=== PATIENT | female | born 1945 | race Caucasian/White ===

== ENCOUNTER → 2017-01-31 | Outpatient (CLI) | payer MEDICARE, OTHER ==
[~2017-01-31] MED LIST: ACHD5005 PO; ALBU17AE3; ALBU8.5H2 IH; ALBU8.5H2 INH; AMBIEN; BACL20TA PO; BCL10T PO; BENICAR HCT PO; BENICAR PO; BUDE90AE IH; BUDE90AE2 INH; CALC-80 PO; CALCIUM PO; CEFU250T11 PO; CHOL200035 PO; CYAN10007 PO; DICLOFENAC; FLT05NA16 NS; FLT11013; FLT11013 IH; FLUC150T PO; GEMF600T3 PO; GLUC-113 PO; GMFB600T PO; HYDR-3816 PO; HYZAAR; LACT1CAP66 PO; LEVO112T55 PO; LEVO125T6 PO; LEVO5TAB12 PO; LEVO75TA6 PO; LEVO88TA26 PO; LIDOCAINE 2%; LOSA100T7 PO; LOSA1TAB19 PO; LVT.1T PO; MESA1.2T PO; METO-354 PO; MULT-305 PO; OLME1TAB19 PO; OMEP20CA12 PO; PRAV40TA PO; PRD10T; PRV20T PO; RT-ALBUINH IH; RT-ALBUTEROL SULF 2.5 MG/3 ML PRE-MIX VIAL INH ONE; SERT25TA PO; SOLI5TAB4 PO; SULF1TAB35 PO; TIAGABINE; TRIA10.8 NS; [UNRECOGNIZED DRUG - OTHER]; pro-air IH
--- OUTSIDE RECORDS SUMMARY | 2017-01-31 13:49 | XMS REPORT | Continuity of Care Document ---
Author Author [facility] Organization [facility] Address Unknown Phone Unavailable Allergies Active Description Code Type Severity Reaction Onset Reported/Identified Relationship to Patient Clinical Status Yes ciprofloxacin [id number] Drug Allergy Severe N/A 10/03/2013 Yes Sulfa (Sulfonamide Antibiotics) [id number] Drug Allergy Severe N/A 10/03/2013 Yes Tetanus Vaccines Toxoid [id number] Drug Allergy Unknown N /A 10/03/2013 Yes gluten [id number] Drug Allergy Severe N/A 03/23/2015 Medications Problems Date Dx Coded Attending Type Code Diagnosis Diagnosed By 01/26/2012 Ot 478.79 DISEASE OF [place] NEC 01/26/2012 Ot V57.3 CARE INVOLVING SPEECH-LANGUAGE THERAPY 09/08/2012 Ot 562.10 DIVERTICULOSIS COLON (W/O MENT OF HEMORR 09/08/2012 Ot 787.99 OTHER GI SYSTEM SYMPTOMS 09/08/2012 Ot V76.51 SCREEN MAL NEOP-COLON 10/07/2013 BRAD YIP DO Ot 038.40 GRAM-NEG SEPTICEMIA NOS 10/07/2013 BRAD YIP DO Ot 041.49 OTHER AND UNSPECIFIED ESCHERICHIA COLI [ 10/07/2013 BRAD YIP DO Ot 244.9 HYPOTHYROIDISM NOS 10/07/2013 BRAD YIP DO Ot 272.4 HYPERLIPIDEMIA NEC/NOS 10/07/2013 BRAD YIP DO Ot 276.50 VOLUME DEPLETION, UNSPECIFIED 10/07/2013 BRAD YIP DO Ot 276.8 HYPOPOTASSEMIA 10/07/2013 BRAD YIP DO Ot 340 MULTIPLE SCLEROSIS 10/07/2013 BRAD YIP DO Ot 401.9 HYPERTENSION NOS 10/07/2013 BRAD YIP DO Ot 458.9 HYPOTENSION NOS 10/07/2013 BRAD YIP DO Ot 493.90 ASTHMA, UNSPECIFIED 10/07/2013 BRAD YIP DO Ot 530.81 ESOPHAGEAL REFLUX 10/07/2013 BRAD YIP DO Steve Ot 555.9 REGIONAL ENTERITIS NOS 10/07/2013 YIP DO BRAD iWlson Ot 596.51 HYPERTONICITY OF BLADDER 10/07/2013 PHI MONTALVO BRAD Steve Ot 599.0 URIN TRACT INFECTION NOS 10/07/2013 YIP DO BRAD Steve Ot 788.99 OTHER SYMPTOMS INVOLVING URINARY SYSTEM 10/07/2013 PHI MONTALVO BRAD Steve Ot 995.91 SEPSIS 10/07/2013 PHI MONTALVO BRAD Wilson Ot V12.3 HX-BLOOD DISEASES 02/06/2015 Ot 721.3 02/06/2015 Ot V76.12 02/06/2015 Ot V76.12 02/06/2015 Ot 478.79 02/06/2015 Ot V57.3 02/06/2015 Ot V76.12 02/06/2015 Ot V72.84 02/06/2015 PHI MONTALVO BRAD Steve Ot V76.12 02/06/2015 BRAD YIP DO Ot V76.12 02/09/2015 AMELIA AVERY MD Ot 724.2 02/28/2015 BRAD YIP DO Ot V76.12 02/28/2015 BRAD YIP DO Ot V76.12 02/28/2015 AMELIA AVERY MD Ot 724.2 02/28/2015 AMELIA AVERY MD Ot 721.3 02/28/2015 AMELIA AVERY MD Ot 722.52 02/28/2015 AMELIA AVERY MD Ot V58.69 03/01/2015 MARY YIP CHEMISTRY MANAGER Ot 240.9 03/10/2015 MARY YIP CHEMISTRY MANAGER Ot 241.0 03/21/2015 AMELIA AVERY MD Ot 721.3 03/21/2015 AMELIA AVERY MD Ot 722.52 03/21/2015 AMELIA AVERY MD Ot V58.69 03/23/2015 MARY YIP CHEMISTRY MANAGER Ot 241.0 03/23/2015 ALEA KEMP, ANJUM Castellon Ot 241.0 03/23/2015 ALEA KEMP, ANJUM Castellon Ot V72.63 03/23/2015 ALEA KEMP, ANJUM Castellon Ot V72.81 03/23/2015 ALEA KEMP, ANJUM M Ot V74.8 03/24/2015 ALEA KEMP, ANJUM M Ot 241.0 NONTOX UNINODULAR GOITER 04/07/2015 GENA KEMP, AMELIA Wilson Ot 724.2 04/15/2015 MARY YIP CHEMISTRY MANAGER Ot 241.0 04/15/2015 ALEA KEMP, ANJUM M Ot 241.0 04/15/2015 ALEA KEMP, ANJUM M Ot V72.63 04/15/2015 ALEA KEMP, ANJUM M Ot V72.81 04/15/2015 ALEA KEMP, ANJUM M Ot V74.8 04/16/2015 MARY YIP CHEMISTRY MANAGER Ot 240.9 04/17/2015 ALEA KEMP, ANJUM M Ot 246.8 04/17/2015 ALEA KEMP, ANJUM M Ot V67.09 04/17/2015 ALEA KEMP, ANJUM M Ot 246.8 04/17/2015 ALEA KEMP, ANJUM M Ot V67.09 04/19/2015 ALEA KEMP, ANJUM M Ot 246.8 04/19/2015 ALEA KEMP, ANJUM M Ot V67.09 04/25/2015 Ot 721.3 04/25/2015 Ot V76.12 04/25/2015 Ot V76.12 04/25/2015 Ot 478.79 04/25/2015 Ot V57.3 04/25/2015 Ot V76.12 04/25/2015 Ot V72.84 04/25/2015 BRAD YIP DO Ot V76.12 04/25/2015 BRAD YIP DO Ot V76.12 04/25/2015 AMELIA AVERY MD Ot 724.2 04/25/2015 AMELIA AVERY MD Ot 721.3 04/25/2015 AMELIA AVERY MD Ot 722.52 04/25/2015 AMELIA AVERY MD Ot V58.69 04/25/2015 MARY YIP CHEMISTRY MANAGER Ot 240.9 04/25/2015 MARY YIP CHEMISTRY MANAGER Ot 241.0 04/25/2015 ALEA KEMP, ANJUM Castellon Ot 241.0 04/25/2015 ALEA KEMP, ANJUM Castellon Ot V72.63 04/25/2015 ALEA KEMP, ANJUM Castellon Ot V72.81 04/25/2015 ALEA KEMP, ANJUM Cande Ot V74.8 04/25/2015 ALEA KEMP, ANJUM Castellon Ot 246.8 04/25/2015 ALEA KEMP, ANJUM Castellon Ot V67.09 05/05/2015 MERYL JOSEPH MD Ot 272.4 HYPERLIPIDEMIA NEC/NOS 05/05/2015 MERYL JOSEPH MD Ot 401.9 HYPERTENSION NOS 05/05/2015 MERYL JOSEPH MD Ot 414.01 CORONARY ATHEROSCLEROSIS OF [place] CORON 05/05/2015 MERYL JOSEPH MD Ot 414.4 CORONARY ATHEROSCLEROSIS DUE TO [place] 05/05/2015 MERYL JOSEPH MD Ot 786.09 RESPIRATORY ABNORM NEC 05/05/2015 MERYL JOSEPH MD Ot 794.30 ABN CARDIOVASC STUDY NOS 05/05/2015 MERYL JOSEPH MD Ot V12.51 HX-VENOUS THROMBOSIS EMBOLISM 05/05/2015 MERYL JOSEPH MD Ot V58.69 OT MED,LT,CURRENT USE 05/10/2015 ALEA KEMP, ANJUM Castellon Ot 246.8 05/10/2015 ANJUM COSBY MD Ot V67.09 05/15/2015 BRAD YIP DO Ot 401.9 05/15/2015 BRAD YIP DO Ot 780.79 08/16/2015 BRAD YIP DO, Ot V76.12 10/16/2015 JODI KEMP, GATITO Dumont Ot N39.0 URINARY TRACT INFECTION, SITE NOT SPECIF 10/16/2015 GATITO ZAPATA MD Ot R50.9 FEVER, UNSPECIFIED 10/16/2015 GATITO ZAPATA MD Ot Z86.711 PERSONAL HISTORY OF PULMONARY EMBOLISM 10/16/2015 Ot V76.12 10/16/2015 Ot V76.12 10/16/2015 Ot 478.79 10/16/2015 Ot V57.3 10/16/2015 Ot V76.12 10/16/2015 Ot V72.84 10/16/2015 BRAD YIP DO Ot V76.12 10/16/2015 BRAD YIP DO Ot V76.12 10/16/2015 AMELIA AVERY MD Ot 724.2 10/16/2015 GENA KEMP, AMELIA Wilson Ot 721.3 10/16/2015 GENA KEMP, AMELIA Wilson Ot 722.52 10/16/2015 GENA KEMP, AMELIA Wilson Ot V58.69 10/16/2015 MARY YIP CHEMISTRY MANAGER Ot 240.9 10/16/2015 LUISA YIPRICIA L CHEMISTRY MANAGER Ot 241.0 10/16/2015 ALEA KEMP, ANJUM M Ot 241.0 10/16/2015 ALEA KEMP, ANJUM M Ot V72.63 10/16/2015 ALEA KEMP, ANJUM M Ot V72.81 10/16/2015 ALEA KEMP, ANJUM M Ot V74.8 10/16/2015 ALEA KEMP, ANJUM M Ot 246.8 10/16/2015 ALEA KEMP, ANJUM M Ot V67.09 10/16/2015 BRAD YIP DO Ot 401.9 10/16/2015 BRAD YIP DO Ot 780.79 10/16/2015 BRAD YIP DO Ot V76.12 10/16/2015 MARY YIP CHEMISTRY MANAGER Ot 241.0 10/16/2015 ALEA KEMP, ANJUM M Ot 241.0 10/16/2015 ALEA KEMP, ANJUM M Ot V72.63 10/16/2015 ALEA KEMP, ANJUM M Ot V72.81 10/16/2015 ALEA KEMP, ANJUM M Ot V74.8 10/16/2015 ALEA KEMP, ANJUM M Ot 246.8 10/16/2015 ALEA KEMP, ANJUM M Ot V67.09 10/16/2015 BRAD YIP DO Ot 401.9 10/16/2015 BRAD YIP DO Ot 780.79 10/16/2015 BRAD YIP DO Ot V76.12 01/24/2016 JODI KEMP, GATITO Dumont Ot N39.0 URINARY TRACT INFECTION, SITE NOT SPECIF 01/24/2016 JODI KEMP, GATITO Dumont Ot R50.9 FEVER, UNSPECIFIED 06/16/2016 KRISTIAN MIRANDA APRN Ot N39.0 URINARY TRACT INFECTION, SITE NOT SPECIF 06/16/2016 KRISTIAN MIRANDA APRN Ot R35.0 FREQUENCY OF MICTURITION 06/16/2016 KRISTIAN MIRANDA APRN Ot R50.9 FEVER, UNSPECIFIED 06/24/2016 BRAD YIP DO, Ot M23.200 DERANG OF UNSP LAT MENSC DUE TO OLD TEAR 06/24/2016 BRAD YIP DO, Ot M23.51 CHRONIC INSTABILITY OF KNEE, RIGHT KNEE 06/27/2016 BRAD YIP DO, Ot M23.200 DERANG OF UNSP LAT MENSC DUE TO OLD TEAR 06/27/2016 BRAD YIP DO, Ot M23.51 CHRONIC INSTABILITY OF KNEE, RIGHT KNEE 07/10/2016 FLORIN COVINGTON MD, Ot M23.8X1 OTHER INTERNAL DERANGEMENTS OF RIGHT KNE 07/10/2016 FLORIN COVINGTON MD, Ot Z01.818 ENCOUNTER FOR OTHER PREPROCEDURAL EXAMIN 07/15/2016 BRAD YIP DO, Ot M23.200 DERANG OF UNSP LAT MENSC DUE TO OLD TEAR 07/15/2016 BRAD YIP DO, Ot M23.51 CHRONIC INSTABILITY OF KNEE, RIGHT KNEE 07/17/2016 BRAD YIP DO, Ot M23.200 DERANG OF UNSP LAT MENSC DUE TO OLD TEAR 07/17/2016 BRAD YIP DO, Ot M23.51 CHRONIC INSTABILITY OF KNEE, RIGHT KNEE 07/17/2016 FLORIN COVINGTON MD Ot E03.9 HYPOTHYROIDISM, UNSPECIFIED 07/17/2016 FLORIN COVINGTON MD Ot G35 MULTIPLE SCLEROSIS 07/17/2016 FLORIN COVINGTON MD Ot K50.90 CROHN'S DISEASE, UNSPECIFIED, WITHOUT CO 07/17/2016 FLORIN COVINGTON MD Ot M23.8X1 OTHER INTERNAL DERANGEMENTS OF RIGHT KNE 07/17/2016 FLORIN COVINGTON MD Ot M94.261 CHONDROMALACIA, RIGHT KNEE 07/19/2016 FLORIN COVINGTON MD Ot E03.9 HYPOTHYROIDISM, UNSPECIFIED 07/19/2016 FLORIN COVINGTON MD Ot G35 MULTIPLE SCLEROSIS 07/19/2016 FLORIN COVINGTON MD Ot K50.90 CROHN'S DISEASE, UNSPECIFIED, WITHOUT CO 07/19/2016 FLORIN COVINGTON MD Ot M23.8X1 OTHER INTERNAL DERANGEMENTS OF RIGHT KNE 07/19/2016 FLORIN COVINGTON MD Ot M94.261 CHONDROMALACIA, RIGHT KNEE 07/29/2016 ADRIA KEMP, FLORIN Graham Ot E03.9 HYPOTHYROIDISM, UNSPECIFIED 07/29/2016 FLORIN COVINGTON MD Ot G35 MULTIPLE SCLEROSIS 07/29/2016 ADRIA KEMP, FLORIN Graham Ot K50.90 CROHN'S DISEASE, UNSPECIFIED, WITHOUT CO 07/29/2016 ADRIA KEMP, FLORIN Graham Ot M23.8X1 OTHER INTERNAL DERANGEMENTS OF RIGHT KNE 07/29/2016 ADRIA KEMP, FLORIN Graham Ot M94.261 CHONDROMALACIA, RIGHT KNEE 07/30/2016 Ot V76.12 OTH SCREEN MAMMO-MALIGN NEOPLASM OF [place] 07/30/2016 Ot 478.79 DISEASE OF LARYN[place] NEC 07/30/2016 Ot V57.3 CARE INVOLVING SPEECH-LANGUAGE THERAPY 07/30/2016 Ot V76.12 OTH SCREEN MAMMO-MALIGN NEOPLASM OF [place] 07/30/2016 Ot V72.84 EXAM PRE-OPERATIVE NOS 07/30/2016 BRAD YIP DO Ot V76.12 OTH SCREEN MAMMO-MALIGN NEOPLASM OF [place] 07/30/2016 BRAD YIP DO Ot V76.12 OTH SCREEN MAMMO-MALIGN NEOPLASM OF TE[place] 07/30/2016 GENA KEMP, AMELIA Wilson Ot 724.2 LUMBAGO 07/30/2016 AMELIA AVERY MD Ot 721.3 LUMBOSACRAL SPONDYLOSIS 07/30/2016 GENA KEMP, AMELIA Wilson Ot 722.52 LUMB/LUMBOSAC DISC DEGEN 07/30/2016 GENA KEMP, AMELIA Wilson Ot V58.69 OT MED,LT,CURRENT USE 07/30/2016 MARY YIP CHEMISTRY MANAGER Ot 240.9 GOITER NOS 07/30/2016 MARY YIP CHEMISTRY MANAGER Ot 241.0 NONTOX UNINODULAR GOITER 07/30/2016 ALEA KEMP, ANJUM Castellon Ot 241.0 NONTOX UNINODULAR GOITER 07/30/2016 ALEA KEMP, ANJUM Castellon Ot V72.63 PRE-PROCEDURAL LABORATORY EXAMINATION 07/30/2016 ALEA KEMP, ANJUM Castellon Ot V72.81 [id number] CARDIOVASCULAR 07/30/2016 ALEA KEMP, ANJUM Castellon Ot V74.8 SCREEN-BACTERIAL DIS NEC 07/30/2016 ALEA KEMP, ANJUM Castellon Ot 246.8 DISORDERS OF THYROID NEC 07/30/2016 ANJUM COSBY MD Ot V67.09 SURGERY FOLLOW-UP, OTHER SURGERY 07/30/2016 BRAD YIP DO Ot 401.9 HYPERTENSION NOS 07/30/2016 BRAD YIP DO Ot 780.79 OTH MALAISE FATIGUE 07/30/2016 BRAD YIP DO Ot V76.12 OTH SCREEN MAMMO-MALIGN NEOPLASM OF [place] 07/30/2016 BRAD YIP DO Ot M23.200 DERANG OF UNSP LAT MENSC DUE TO OLD TEAR 07/30/2016 BRAD YIP DO Ot M23.51 CHRONIC INSTABILITY OF KNEE, RIGHT KNEE 07/31/2016 BRAD YIP DO, Ot Z12.31 ENCNTR SCREEN MAMMOGRAM FOR MALIGNANT NE 07/31/2016 BRAD YIP DO, Ot Z12.31 ENCNTR SCREEN MAMMOGRAM FOR MALIGNANT NE 08/21/2016 BRAD YIP DO, Ot Z12.31 ENCNTR SCREEN MAMMOGRAM FOR MALIGNANT NE 01/31/2017 Ot 478.79 DISEASE OF L[place] NEC 01/31/2017 Ot V57.3 CARE INVOLVING SPEECH-LANGUAGE THERAPY 01/31/2017 Ot V76.12 OTH SCREEN MAMMO-MALIGN NEOPLASM OF [place] 01/31/2017 Ot V72.84 EXAM PRE-OPERATIVE NOS 01/31/2017 BRAD YIP DO Ot V76.12 OTH SCREEN MAMMO-MALIGN NEOPLASM OF [place] 01/31/2017 BRAD YIP DO Ot V76.12 OTH SCREEN MAMMO-MALIGN NEOPLASM OF [place] 01/31/2017 AMELIA AVERY MD Ot 724.2 LUMBAGO 01/31/2017 AMELIA AVERY MD Ot 721.3 LUMBOSACRAL SPONDYLOSIS 01/31/2017 AMELIA AVERY MD Ot 722.52 LUMB/LUMBOSAC DISC DEGEN 01/31/2017 AMELIA AVERY MD Ot V58.69 OTH MED,LT,CURRENT USE 01/31/2017 MARY YIP CHEMISTRY MANAGER Ot 240.9 GOITER NOS 01/31/2017 MARY YIP CHEMISTRY MANAGER Ot 241.0 NONTOX UNINODULAR GOITER 01/31/2017 ANJUM COSBY MD Ot 241.0 NONTOX UNINODULAR GOITER 01/31/2017 ALEA KEMP, ANJUM Castellon Ot V72.63 PRE-PROCEDURAL LABORATORY EXAMINATION 01/31/2017 ANJUM COSBY MD Ot V72.81 [id number] CARDIOVASCULAR 01/31/2017 ANJUM COSBY MD Ot V74.8 SCREEN-BACTERIAL DIS NEC 01/31/2017 ANJUM COSBY MD Ot 246.8 DISORDERS OF THYROID NEC 01/31/2017 ANJUM COSBY MD, Ot V67.09 SURGERY FOLLOW-UP, OTHER SURGERY 01/31/2017 BRAD YIP DO Ot 401.9 HYPERTENSION NOS 01/31/2017 BRAD YIP DO Ot 780.79 OTH MALAISE FATIGUE 01/31/2017 BRAD YIP DO, Ot V76.12 OTH SCREEN MAMMO-MALIGN NEOPLASM OF [place] 01/31/2017 BRAD YIP DO Ot M23.200 DERANG OF UNSP LAT MENSC DUE TO OLD TEAR 01/31/2017 BRAD YIP DO Ot M23.51 CHRONIC INSTABILITY OF KNEE, RIGHT KNEE 01/31/2017 BRAD YIP DO Ot Z12.31 ENCNTR SCREEN MAMMOGRAM FOR MALIGNANT NE Procedures Results Test Result Range Complete urinalysis with reflex to culture - 06/16/16 20:03 Urine color determination YELLOW NRG Urine clarity determination SLIGHTLY CLOUDY NRG Urine pH measurement by test strip 5 5- 9 Specific gravity of urine by test strip 1.015 1.016-1.022 Urine protein assay by test strip, semi-quantitative 2+ NEGATIVE Urine glucose detection by automated test strip NEGATIVE NEGATIVE Erythrocytes detection in urine sediment by light microscopy 2+ NEGATIVE Urine ketones detection by automated test strip NEGATIVE NEGATIVE Urine nitrite detection by test strip NEGATIVE NEGATIVE Urine total bilirubin detection by test strip 1+ NEGATIVE Urine urobilinogen measurement by automated test strip (mass/volume) 1 mg/dL NORMAL Urine leukocyte esterase detection by dipstick 3+ NEGATIVE Automated urine sediment erythrocyte count by microscopy (number/high power field) [HPF] NRG Automated urine sediment leukocyte count by microscopy (number/high power field ) TNTC NRG Bacteria detection in urine sediment by light microscopy MODERATE NRG Squamous epithelial cells detection in urine sediment by light microscopy 10-25 NRG Crystals detection in urine sediment by light microscopy NONE NRG Casts detection in urine sediment by light microscopy NONE NRG Mucus detection in urine sediment by light microscopy NEGATIVE NRG Complete urinalysis with reflex to culture YES NRG Bacterial urine culture - 06/16/16 20:03 Bacterial urine culture [id number] NRG COLONY COUNT 10,000/ML - 100,000/ML NRG FTX;REPORTABLE SENSITIVITY REPORTED 06/18 09:00 NRG FREE TEXT ENTRY 3 MIXED GRAM POSITIVE HAFSA NRG Bacterial susceptibility panel - 06/16/16 20:03 Gentamicin susceptibility test by minimum inhibitory concentration <= NRG Trimethoprim/sulfamethoxazole susceptibility test by minimum inhibitoryconcentration <= NRG Ampicillin susceptibility test by minimum inhibitory concentration <= NRG Tobramycin susceptibility test by minimum inhibitory concentration <= NRG Cefazolin susceptibility test by minimum inhibitory concentration <= NRG Ceftriaxone susceptibility test by minimum inhibitory concentration <= NRG Ampicillin/sulbactam susceptibility test by minimum inhibitory concentration <= NRG Piperacillin/tazobactam susceptibility test by minimum inhibitory concentration <= NRG Ciprofloxacin susceptibility test by minimum inhibitory concentration <= NRG Meropenem susceptibility test by minimum inhibitory concentration <= NRG Nitrofurantoin susceptibility test by minimum inhibitory concentration <= NRG Aztreonam susceptibility test by minimum inhibitory concentration <= NRG Extended spectrum beta lactamase (ESBL) producing bacteria susceptibility test by minimum inhibitory concentration - NRG Methicillin resistant Staphylococcus aureus (MRSA) screening culture - 15:12 Methicillin resistant Staphylococcus aureus (MRSA) screening culture NEG NRG Encounters ACCT No. Visit Date/Time Discharge Status Pt. Type Provider Facility Loc./Unit Complaint [id number] 07/17/2016 07:28:00 2015 12:15:00 DIS Outpatient FLORIN COVINGTON MD [facility] SDC TORN MEDIAL MENISCUS RIGHT KNEE [id number] 07/10/2016 14:14:00 2015 15:14:00 DIS Outpatient FLORIN COVINGTON MD [facility] PREOP RIGHT KNEE ARTHROSCOPY [id number] 06/16/2016 19:53:00 2015 21:00:00 DIS Emergency KRISTIAN MIRANDA APRN [facility] ER POSS UTI/ELEVATED TEMP [id number] 01/23/2016 22:59:00 2015 01:04:00 DIS Emergency GATITO ZAPATA MD [facility] ER FEVER [id number] 10/16/2015 17:01:00 2014 19:02:00 DIS Emergency GATITO ZAPATA MD [facility] ER FEVER/UTI SYMPTOMS [id number] 07/25/2015 14:08:00 2014 23:59:59 CLS Outpatient BRAD YIP DO [facility] RAD SCREENING [id number] 05/05/2015 11:01:00 2014 17:55:00 DIS Outpatient MERYL JOSEPH MD [facility] CATH ABNORMAL STRESS, HLP [id number] 04/26/2015 06:45:00 2014 23:59:59 CLS Outpatient BRAD YIP DO [facility] CARD HTN MALISE FATIGUE [id number] 04/13/2015 10:52:00 2014 23:59:59 CLS Outpatient ANJUM COSBY MD [facility] LAB TOTAL THYROIDECTOMY [id number] 03/23/2015 11:15:00 2014 10:15:00 DIS Outpatient ANJUM COSBY MD [facility] SDC THYROID NODULES [id number] 03/13/2015 14:57:00 2014 23:59:59 CLS Outpatient ANJUM COSBY MD [facility] PREOP THYROID NODULES [id number] 03/07/2015 08:47:00 2014 23:59:59 CLS Outpatient MARY YIPP [facility] RAD THYROID NODULE [id number] 02/27/2015 13:51:00 2014 23:59:59 CLS Outpatient MARY YIP [facility] RAD THYROMEGALY [id number] 02/13/2015 14:01:00 2014 23:59:59 CLS Outpatient AMELIA AVERY MD [facility] CARD DDD [id number] 02/06/2015 14:39:00 2014 23:59:59 CLS Outpatient AMELIA AVERY MD [facility] RAD LBP RADIATING TO BOTH LEGS [id number] 07/22/2014 09:54:00 2013 23:59:59 CLS Outpatient BRAD YIP DO Steve [facility] RAD SCREENING [id number] 10/02/2013 22:05:00 2012 11:15:00 DIS Inpatient PHI MONTALVOBRAD Steve [facility] 4TH UROSEPSIS;DEHYDRATION; HYPOTENSION;ACUTE RENAL [id number] 07/16/2013 09:17:00 2012 23:59:59 CLS Outpatient PHI MONTALVOBRAD Steve [facility] RAD SCREENING [id number] 01/31/2017 13:44:00 ACT Outpatient PHI MONTALVO BRAD Steve [facility] RT ASTHMA [id number] 07/30/2016 11:23:00 ACT Outpatient PHI MONTALVO BRAD Steve [facility] RAD ROUTINE [id number] 06/22/2016 09:54:00 ACT Outpatient PHI MONTALVO RBAD Steve [facility] RAD R KNEE INSTABILITY/FALLS [id number] 02/06/2015 14:39:00 Document Registration [id number] 09/08/2012 12:29:00 Document Registration [id number] 09/07/2012 07:37:00 Document Registration [id number] 07/15/2012 15:04:00 Document Registration [id number] 01/27/2012 00:00:00 Document Registration [id number] 01/21/2012 15:41:00 Document Registration [id number] 07/11/2011 14:52:00 Document Registration [id number] 07/06/2010 07:29:00 Document Registration [id number] 02/16/2010 10:12:00 Document Registration
== END ==
LOC: RT 13:44
PROVIDERS: ATTEND Internal Medicine
DX: J45.909 Unspecified asthma, uncomplicated (principal)
CPT/HCPCS: 94060; 94640; 94726; 94729

== ENCOUNTER → 2017-03-17 | Outpatient (CLI) | payer MEDICARE, OTHER ==
[~2017-03-17] MED LIST changes: -RT-ALBUTEROL SULF 2.5 MG/3 ML PRE-MIX VIAL INH ONE
--- NOTE | 2017-03-17 21:31 | ECHOCARDIOGRAPHY REPORT ---
DATE OF SERVICE: 03/17/2017 PROCEDURE: Two-dimensional echocardiogram. REFERRING PHYSICIAN: Dr. Marc Ospina. MEASUREMENTS: LVID end diastolic 3.1. IVS thickness 0.9. LVPW thickness 0.9. Left atrial diameter 3.2. Ejection fraction 60%. FINDINGS: 1. Technical quality is good. 2. The left ventricle is normal in size with normal contractility. Systolic function appeared to be normal. Estimated ejection fraction 60%. Diastolic dysfunction is suggested by Doppler. 3. The left atrium is normal in size. No clot or thrombus were seen within the left atrium. 4. The right atrium and right ventricle are normal in size. No clot or thrombus were seen within the right side. 5. The mitral valve is normal in morphology with mild mitral regurgitation noted by color Doppler flow. No mitral valve prolapse. No mitral valve stenosis. 6. The aortic valve is trileaflet with normal opening and closing pattern. No significant aortic stenosis or regurgitation was seen. 7. The tricuspid valve is normal in morphology with mild tricuspid regurgitation noted by color Doppler flow. Doppler across tricuspid valve estimated pulmonary artery pressure of 21 plus right atrial pressure. 8. The pulmonic valve is functioning normally. 9. No pericardial effusion. CONCLUSION: 1. Normal left ventricular size and systolic function. Estimated ejection fraction of 60%. 2. Diastolic dysfunction is suggested by Doppler. 3. Mild mitral and tricuspid regurgitation. 3. Estimated pulmonary artery pressure of 30 mmHg. Job ID: [id number] DocumentID: [id number] Dictated Date: 03/17/2017 17:26:55 Tobacco Weigher Date: 03/17/2017 17:43:45 Dictated By: MERYL JOSEPH MD
== END ==
LOC: CARD 08:39
PROVIDERS: ATTEND Internal Medicine Cardiovascular Disease
DX: I10 Essential (primary) hypertension (principal); E78.2 Mixed hyperlipidemia; R06.02 Shortness of breath; K50.90 Crohn's disease, unspecified, without complications; E07.9 Disorder of thyroid, unspecified
CPT/HCPCS: 93306

== ENCOUNTER → 2017-03-19 | Outpatient (CLI) | payer MEDICARE, OTHER ==
[~2017-03-19] VITALS: Ht 154.9 cm; Wt 73.0 kg
[~2017-03-19] MED LIST changes: +CATHETER FLUSH 10 ML SYR IV PRN; +REGADENOSON 0.4 MG/5 ML SYR (LEXISCAN) IV ONE
[2017-03-19 09:10] VITALS: BP 117/74
[2017-03-19 09:12] VITALS: BP 113/69
--- NOTE | 2017-03-20 09:54 | STRESS TEST ---
DATE OF SERVICE: 03/19/2017 LEXISCAN MYOVIEW STRESS TEST REFERRING PHYSICIAN: Marc Ospina DO Baseline heart rate is 54, baseline blood pressure is 140/70, baseline EKG is sinus rhythm with no ischemic changes. In summary, the patient was injected with 10.91 mCi of technetium 99 Myoview and the resting images were obtained and the patient received 0.4 mg of Lexiscan, followed by 29.6 mCi of technetium 99 Myoview. Throughout the test, there were no EKG changes. The resting and stress images were reviewed and compared in the short access, horizontal long access and vertical long access views. Review of the images showed mild decreased uptake at the mid to apical anterior wall with mild reversibility with breast attenuation affecting the quality of the images. SSS is 2, SDS 1, TID value 0.98. On the gated images, the left ventricle appeared to be normal size with normal contractility. Calculated ejection fraction 63%. CONCLUSION: 1. The patient tolerated the Lexiscan well. 2. Breast attenuation with typical female pattern. No significant ischemia or infarction on SPECT images. 3. Normal left ventricular size with normal contractility. Calculated ejection fraction 63%. Job ID: [id number] DocumentID: [id number] Dictated Date: 03/19/2017 16:43:48 Recyclable Materials Sorter Date: 03/20/2017 08:33:02 Dictated By: MERYL JOSEPH MD
== END ==
LOC: CARD 07:22
PROVIDERS: ATTEND Internal Medicine Cardiovascular Disease
DX: I10 Essential (primary) hypertension (principal); E78.2 Mixed hyperlipidemia; R06.00 Dyspnea, unspecified; E07.9 Disorder of thyroid, unspecified
CPT/HCPCS: 78452; 93017

== ENCOUNTER → 2017-08-06 | Outpatient (CLI) | payer MEDICARE, OTHER ==
[~2017-08-06] MED LIST changes: -CATHETER FLUSH 10 ML SYR IV PRN; -REGADENOSON 0.4 MG/5 ML SYR (LEXISCAN) IV ONE
--- NOTE | 2017-08-06 18:56 | Diagnostic Imaging Report ---
Bilateral screening mammogram 2D views with tomosynthesis. The current study was also evaluated with a Computer Aided Detection (CAD) system. INDICATION: Screening. No current complaints stated on the questionnaire. COMPARISON: 07/30/2016. FINDINGS: The breasts are composed of heterogeneously dense parenchyma which may decrease mammographic sensitivity. Benign-appearing calcifications are seen. Allowing for technique and positional differences, no suspicious change is seen. IMPRESSION: No significant change. ACR BI-RADS Category 2: Benign findings. Result letter will be mailed to the patient. Note: At least 10% of breast cancer is not imaged by mammography. Dictated by: Dictated on workstation # [id number]
== END ==
LOC: RAD 08:56
PROVIDERS: ATTEND Internal Medicine
DX: Z12.31 Encounter for screening mammogram for malignant neoplasm of breast (principal)
CPT/HCPCS: 77067

== ENCOUNTER → 2017-11-05 | Outpatient (CLI) | payer MEDICARE, OTHER ==
--- NOTE | 2017-11-05 11:03 | Diagnostic Imaging Report ---
PROCEDURE: MRI lumbar spine. TECHNIQUE: Multiplanar, multisequence MRI of the lumbar spine was performed without contrast. INDICATION: Chronic back pain. FINDINGS: There is a left convexity scoliosis of the lumbar spine. There is osseous fusion between vertebral bodies T11 and T12 noted. The alignment at the posterior spinal line is satisfactory. There is disc desiccation at all levels. Significant disc height loss particularly on the right side of L3-L4 disc and along the left side of L4-L5 is seen. There is bone marrow reactive edema seen almost at all disc levels with no suspicious marrow focal lesion identified. There is a Tarlov cyst in the sacral spinal canal eccentric to the left side measuring 2.6 x 1.6 cm. This appears similar to 2010 comparison exam. The cauda equina and conus medullaris appear grossly unremarkable. T12-L1: There is a diffuse disc bulge without spinal canal stenosis. There is mild facet hypertrophy. No foraminal stenosis on the left. There is kqnw-op-aahtmxle foraminal stenosis on the right side however. L1-L2: There is no disc herniation. There is mild facet hypertrophy. No central canal, lateral recess or foraminal stenosis. L2-L3: There is a mild disc bulge and moderate bilateral facet hypertrophy. No central canal or lateral recess stenosis. There is no foraminal narrowing. L3-L4: There is a diffuse disc bulge and bilateral brbmfcfe-kw-wmfiah facet hypertrophy worse on the right side. No central canal stenosis. There is moderate right lateral recess stenosis seen abutting the descending right L4 nerve. There is a idxwurvc-wl-xtdwuf foraminal stenosis on the right and no foraminal stenosis on the left. L4-L5: There is a prominent diffuse disc bulge and bilateral facet hypertrophy severe on the left and mild on the right side. This is associated with no significant central canal stenosis. There is bilateral lateral recess stenosis mild on the right side and ovtdlciy-ez-vpmmkr on the left compressing the descending left L5 nerve root. The foramina demonstrate dewacmgy-dh-lduinb stenosis on the left and no significant stenosis on the right side. L5-S1: There is qlce-sj-ydgqccef foraminal stenosis on the left and no foraminal stenosis on the right side. IMPRESSION: Scoliosis convex to the left centered around L2-L3 level with associated significant disc and facet degenerative changes. There is multilevel lateral recess and foraminal stenosis as described. Dictated by: Dictated on workstation # [id number]
== END ==
LOC: RAD 09:14
PROVIDERS: ATTEND Internal Medicine
DX: M48.07 Spinal stenosis, lumbosacral region (principal); M47.816 Spondylosis without myelopathy or radiculopathy, lumbar region; M41.86 Other forms of scoliosis, lumbar region; M51.26 Other intervertebral disc displacement, lumbar region
CPT/HCPCS: 72148

== ENCOUNTER → 2018-02-12 | Outpatient (CLI) | payer MEDICARE, OTHER ==
[~2018-02-12] MED LIST changes: +HYDR-34 PO; -HYDR-3816 PO
--- NOTE | 2018-02-12 13:03 | Diagnostic Imaging Report ---
INDICATION: Osteoporosis screening. TECHNIQUE: Bone mineral analysis of the lumbar spine and both hips was performed. FINDINGS: The bone mineral density of the lumbar spine from L2 to L4 is 1.419 with a T score of 1.8. The bone mineral density of the left femoral neck is 0.911 with a T score of -0.9. The bone mineral density of the right femoral neck is 0.913 with a T score of -0.9. IMPRESSION: Normal bone mineral density of the lumbar spine and bilateral femoral necks. Dictated by: Dictated on workstation # [id number]
== END ==
LOC: RAD 11:03
PROVIDERS: ATTEND Internal Medicine
DX: Z13.820 Encounter for screening for osteoporosis (principal); M85.88 Other specified disorders of bone density and structure, other site; Z78.0 Asymptomatic menopausal state
CPT/HCPCS: 77080

== ENCOUNTER → 2018-03-18 | Outpatient (RCR) | payer MEDICARE, OTHER | END | disposition home or self-care (01) | LOC: CR3 02-16 05:00 | PROVIDERS: ATTEND Internal Medicine Cardiovascular Disease | DX: Z29.8 Encounter for other specified prophylactic measures (principal) ==

== ENCOUNTER 2018-04-17 07:08 | Outpatient (RCR) | payer MEDICARE, OTHER | END 2018-04-19 | disposition home or self-care (01) | LOC: CR3 07:08 | PROVIDERS: ATTEND Internal Medicine Cardiovascular Disease | DX: Z29.8 Encounter for other specified prophylactic measures (principal) ==

== ENCOUNTER → 2018-05-22 | Outpatient (RCR) | payer MEDICARE, OTHER | END | disposition home or self-care (01) | LOC: CR3 04-22 06:00 | PROVIDERS: ATTEND Internal Medicine Cardiovascular Disease | DX: Z29.8 Encounter for other specified prophylactic measures (principal) ==

== ENCOUNTER → 2018-06-24 | Outpatient (RCR) | payer MEDICARE, OTHER | END | disposition home or self-care (01) | LOC: CR3 05-25 07:14 | PROVIDERS: ATTEND Internal Medicine Cardiovascular Disease | DX: Z29.8 Encounter for other specified prophylactic measures (principal) ==

== ENCOUNTER → 2018-07-29 | Outpatient (RCR) | payer MEDICARE, OTHER | END | disposition home or self-care (01) | LOC: CR3 06-29 07:00 | PROVIDERS: ATTEND Internal Medicine Cardiovascular Disease | DX: Z29.8 Encounter for other specified prophylactic measures (principal) ==

== ENCOUNTER → 2018-08-10 | Outpatient (CLI) | payer MEDICARE, OTHER ==
--- NOTE | 2018-08-10 18:03 | Diagnostic Imaging Report ---
INDICATION: Screening. The current study was also evaluated with a Computer Aided Detection (CAD) system. 3-D tomosynthesis was also performed and reviewed. Comparison is made with prior examination from 08/06/2017 back through 07/15/2012. FINDINGS: There are scattered fibroglandular densities bilaterally. There are benign-type calcifications. There is no new dominant mass, spiculated lesion or suspicious calcification identified. Skin, nipples and axillae are unremarkable. IMPRESSION: ACR BI-RADS Category 2: Benign findings. Result letter will be mailed to the patient. Note: At least 10% of breast cancer is not imaged by mammography. Dictated by: Dictated on workstation # [id number]
== END ==
LOC: RAD 06:59
PROVIDERS: ATTEND Internal Medicine
DX: Z12.31 Encounter for screening mammogram for malignant neoplasm of breast (principal)
CPT/HCPCS: 77067

== ENCOUNTER 2018-08-26 06:35 | Outpatient (RCR) | payer MEDICARE, OTHER | END 2018-08-30 | disposition home or self-care (01) | LOC: CR3 06:35 | PROVIDERS: ATTEND Internal Medicine Cardiovascular Disease | DX: Z29.8 Encounter for other specified prophylactic measures (principal) ==

== ENCOUNTER → 2018-09-30 | Outpatient (RCR) | payer MEDICARE, OTHER | END | disposition home or self-care (01) | LOC: CR3 08-31 06:30 | PROVIDERS: ATTEND Internal Medicine Cardiovascular Disease | DX: Z01.818 Encounter for other preprocedural examination (principal) ==

== ENCOUNTER 2018-10-30 13:18 | Outpatient (RCR) | payer MEDICARE, OTHER | END 2018-10-31 | disposition home or self-care (01) | LOC: CR3 13:18 | PROVIDERS: ATTEND Internal Medicine Cardiovascular Disease | DX: Z29.8 Encounter for other specified prophylactic measures (principal) ==

== ENCOUNTER → 2018-12-02 | Outpatient (RCR) | payer MEDICARE, OTHER | END | disposition home or self-care (01) | LOC: CR3 11-02 13:00 | PROVIDERS: ATTEND Internal Medicine Cardiovascular Disease | DX: Z29.8 Encounter for other specified prophylactic measures (principal) ==

== ENCOUNTER 2018-12-25 13:18 | Outpatient (RCR) | payer MEDICARE, OTHER | END 2019-01-03 | disposition home or self-care (01) | LOC: CR3 13:18 | PROVIDERS: ATTEND Internal Medicine Cardiovascular Disease | DX: Z29.8 Encounter for other specified prophylactic measures (principal) ==

== ENCOUNTER 2019-01-29 13:32 | Outpatient (RCR) | payer MEDICARE, OTHER | END 2019-02-03 | disposition home or self-care (01) | LOC: CR3 13:32 | PROVIDERS: ATTEND Internal Medicine Cardiovascular Disease | DX: Z29.8 Encounter for other specified prophylactic measures (principal) ==

== ENCOUNTER 2019-02-22 13:26 | Outpatient (RCR) | payer MEDICARE, OTHER | END 2019-03-10 | disposition home or self-care (01) | LOC: CR3 13:26 | PROVIDERS: ATTEND Internal Medicine Cardiovascular Disease | DX: Z29.8 Encounter for other specified prophylactic measures (principal) ==

== ENCOUNTER → 2019-03-09 | Outpatient (CLI) | payer MEDICARE, OTHER ==
--- NOTE | 2019-03-09 10:20 | Diagnostic Imaging Report ---
CLINICAL INDICATION: Patient with history of multiple sclerosis. Patient has episodes where she cannot feel legs. EXAM: MRI of the brain performed without IV contrast. Sequences include axial DWI, ADC map, axial T2, axial FLAIR, sagittal FLAIR, axial T1, axial gradient echo, and sagittal T1. COMPARISON: MRI of the brain performed without and with IV contrast dated 07/17/2007. FINDINGS: There is interval progression of multiple focal areas of high T2 signal white matter changes involving both cerebral hemispheres. These may represent progression of demyelinating findings, but chronic small vessel ischemic disease may be considered. There is no significant change to the more prominent ovoid and patchy areas of high T2 signal in the periventricular regions, septal callosal, and amorphous area involving the midbrain. The brain parenchymal volume appears appropriate for patient's age. There is no hydrocephalus, brain herniation, or midline shift. Basal cisterns are unremarkable. The [place] vascular structures show no gross abnormality as visualized. The pituitary gland, sella, and suprasellar regions are unremarkable as visualized. The extra-cranial soft tissue, skull, and orbits are unremarkable. Dental hardware artifact obscures the bilateral maxillary sinus regions. There is no significant paranasal sinus disease. Temporal bone structures show no significant abnormality. IMPRESSION: 1: There is no evidence of acute intracranial process. 2: There is slight progression of small focal areas of high T2 signal white matter changes involving both cerebral hemispheres. These findings may be related to progression of demyelinating process, but progression of chronic small vessel ischemic disease may also be considered. 3: There is otherwise no significant change to the more prominent patchy and ovoid areas of high T2 signal white matter changes involving the bilateral periventricular regions, septal callosal region, and midbrain likely related to a demyelinating process. 4: The remainder of this exam is unremarkable for patient's age. Dictated by: Dictated on workstation # [id number]
--- NOTE | 2019-03-09 11:20 | Diagnostic Imaging Report ---
PROCEDURE: MRI lumbar spine. TECHNIQUE: Multiplanar, multisequence MRI of the lumbar spine was performed without contrast. INDICATION: History of multiple sclerosis. Lower extremity numbness. COMPARISON: MRI of the lumbar spine without contrast 11/05/2017. FINDINGS: Moderate to advanced left apex lumbar curvature centered at L3-L4. There is Grade 1 anterolisthesis of L3 on L4 and L4 on L5. There is also Grade 1 retrolisthesis of T12 on L1. Chronic anterior wedging of T12. Moderate to advanced degenerative endplate changes including Modic type I degenerative endplate changes at T12-L1. No abnormal signal in the conus which terminates at L1. Normal morphology of the cauda equina. Simple appearing cysts in both of the partially visualized kidneys. No acute findings in the visualized abdomen. Left S1 Tarlov cyst measures up to 2.4 cm. L1-L2: No spinal canal, lateral recess or neural foraminal narrowing. L2-L3: Annular disc bulge and ligamentous hypertrophy result in mild spinal canal and left lateral recess narrowing. The lumbar curvature also contributes to moderate right neural foraminal narrowing. L3-L4: Posterior disc osteophyte complex and ligamentous hypertrophy result in moderate bilateral lateral recess and mild spinal canal narrowing. There is advanced right and mild left neural foraminal narrowing. L4-L5: Posterior disc osteophyte complex, ligamentous hypertrophy and facet arthropathy result in advanced left and moderate right lateral recess narrowing. No substantial spinal canal narrowing. There is advanced left and moderate right neural foraminal narrowing. L5-S1: No substantial spinal canal, lateral recess or neural foraminal narrowing. IMPRESSION: 1. Advanced spondylotic and scoliotic changes in the lumbar spine result in multilevel high-grade lateral recess and neural foraminal narrowing detailed above level by level. No high-grade spinal canal narrowing. 2. No acute osseous findings. 3. Left S1 Tarlov cysts measuring up to 2.4 cm. Dictated by: Dictated on workstation # [id number]
== END ==
LOC: RAD 08:14
PROVIDERS: ATTEND Internal Medicine
DX: M47.816 Spondylosis without myelopathy or radiculopathy, lumbar region (principal); M41.86 Other forms of scoliosis, lumbar region; M48.061 Spinal stenosis, lumbar region without neurogenic claudication; M85.68 Other cyst of bone, other site; M46.86 Other specified inflammatory spondylopathies, lumbar region; M25.78 Osteophyte, vertebrae; M43.17 Spondylolisthesis, lumbosacral region; E03.9 Hypothyroidism, unspecified; E78.00 Pure hypercholesterolemia, unspecified; G35 Multiple sclerosis; J30.89 Other allergic rhinitis; J01.01 Acute recurrent maxillary sinusitis
CPT/HCPCS: 70551; 72148

== ENCOUNTER → 2019-04-21 | Outpatient (RCR) | payer MEDICARE, OTHER | END | disposition home or self-care (01) | LOC: CR3 03-22 13:00 | PROVIDERS: ATTEND Internal Medicine Cardiovascular Disease | DX: Z29.8 Encounter for other specified prophylactic measures (principal) ==

== ENCOUNTER 2019-05-21 07:47 | Outpatient (RCR) | payer MEDICARE, OTHER | END 2019-05-23 | disposition home or self-care (01) | LOC: CR3 07:47 | PROVIDERS: ATTEND Internal Medicine Cardiovascular Disease | DX: Z29.8 Encounter for other specified prophylactic measures (principal) ==

== ENCOUNTER → 2019-06-23 | Outpatient (RCR) | payer MEDICARE, OTHER | END | disposition home or self-care (01) | LOC: CR3 05-24 06:00 | PROVIDERS: ATTEND Internal Medicine Cardiovascular Disease | DX: Z01.818 Encounter for other preprocedural examination (principal) ==

== ENCOUNTER → 2019-07-30 | Outpatient (RCR) | payer MEDICARE, OTHER | END | disposition home or self-care (01) | LOC: CR3 06-30 06:00 | PROVIDERS: ATTEND Internal Medicine Cardiovascular Disease | DX: Z29.8 Encounter for other specified prophylactic measures (principal) ==

== ENCOUNTER → 2019-09-03 | Outpatient (RCR) | payer MEDICARE, OTHER | END | disposition home or self-care (01) | LOC: CR3 08-04 07:00 | PROVIDERS: ATTEND Internal Medicine Cardiovascular Disease | DX: Z29.8 Encounter for other specified prophylactic measures (principal) ==

== ENCOUNTER → 2019-09-06 | Outpatient (CLI) | payer MEDICARE, OTHER ==
--- NOTE | 2019-09-06 10:41 | Diagnostic Imaging Report ---
INDICATION: Routine screening. COMPARISON: 08/10/2018 and 08/06/2017. TECHNIQUE: 2D and 3D bilateral screening mammography was performed with CAD. FINDINGS: Scattered fibroglandular densities are identified bilaterally. Benign calcifications in both breasts are again noted. There is a tiny density in the medial left breast on the CC view at mid depth, indeterminate. No correlate is seen on the MLO view. Additional views are recommended. The right breast is unremarkable. The axillae are unremarkable. IMPRESSION: Left breast density. Additional views including spot compression and rolled CC views are recommended for further evaluation. ACR BI-RADS Category 0: Incomplete. (Needs additional imaging evaluation). Result letter will be mailed to the patient. Note: At least 10% of breast cancer is not imaged by mammography. Dictated by: Dictated on workstation # [id number]
== END ==
LOC: RAD 07:37
PROVIDERS: ATTEND Family Medicine
DX: Z12.31 Encounter for screening mammogram for malignant neoplasm of breast (principal)
CPT/HCPCS: 77067

== ENCOUNTER → 2019-09-10 | Outpatient (CLI) | payer MEDICARE, OTHER ==
--- NOTE | 2019-09-10 18:32 | Diagnostic Imaging Report ---
INDICATION: Left breast density. Patient presents for additional views. Correlation is made with a recent screening study from 09/06/2019 and prior mammogram from 08/10/2018 and 08/06/2017. 2-D and 3-D unilateral left diagnostic mammography was performed. This included conventional 90-degree lateral view as well as rolled CC and spot compression CC and ML views. The current study was also evaluated with a Computer Aided Detection (CAD) system. 3-D tomosynthesis was also performed and reviewed. FINDINGS: There is a tiny persistent density in the medial aspect of the left breast best seen on the CC view at gmi-oe-lvtqgximt depth approximately 7 to 9 cm from the nipple. This may be superiorly located on the ML view. There are two adjacent calcifications. No other masses are seen. Ultrasound is recommended. IMPRESSION: Persistent tiny density in the slightly inner left breast approximately 7 to 9 cm from the nipple. This may be superiorly located on the ML view and further evaluation with ultrasound is recommended. This will be performed today. ACR BI-RADS Category 0: Incomplete. (Needs additional imaging evaluation). Result letter will be mailed to the patient. Note: At least 10% of breast cancer is not imaged by mammography. Dictated by: Dictated on workstation # [id number]
--- NOTE | 2019-09-10 18:36 | Diagnostic Imaging Report ---
INDICATION: Left breast density. Correlation is made with diagnostic mammogram from earlier the same day as well as screening mammogram from 09/06/2019. FINDINGS: Sonographic interrogation of the upper and inner aspect of the left breast was performed. There are two tiny cysts at approximately 11 o'clock location of the left breast 4 and 6 cm from the nipple. Both of these measure approximately 3 mm in size. The lesion 6 cm from the nipple most likely accounts for the circumscribed density noted mammographically. No solid mass is identified. IMPRESSION: Tiny cysts at the 11 o'clock location of the left breast, as described. One of these likely accounts for the mammographic density. Patient may return to routine annual screening mammography. ACR BI-RADS Category 2: Benign findings. Dictated by: Dictated on workstation # [id number]
== END ==
LOC: RAD 13:57
PROVIDERS: ATTEND Family Medicine
DX: R92.2 Inconclusive mammogram (principal); R92.8 Other abnormal and inconclusive findings on diagnostic imaging of breast
CPT/HCPCS: 76642

== ENCOUNTER → 2019-10-06 | Outpatient (RCR) | payer MEDICARE, OTHER | END | disposition home or self-care (01) | LOC: CR3 09-06 06:00 | PROVIDERS: ATTEND Internal Medicine Cardiovascular Disease | DX: Z29.8 Encounter for other specified prophylactic measures (principal) ==

== ENCOUNTER 2019-11-05 06:24 | Outpatient (RCR) | payer MEDICARE, OTHER | END 2019-11-07 | disposition home or self-care (01) | LOC: CR3 06:24 | PROVIDERS: ATTEND Internal Medicine Cardiovascular Disease | DX: Z29.8 Encounter for other specified prophylactic measures (principal) ==

== ENCOUNTER 2019-12-13 13:45 | Outpatient (RCR) | payer MEDICARE, OTHER | END 2019-12-15 | disposition home or self-care (01) | LOC: CR3 13:45 | PROVIDERS: ATTEND Internal Medicine Cardiovascular Disease | DX: Z29.8 Encounter for other specified prophylactic measures (principal) ==

== ENCOUNTER → 2020-01-19 | Outpatient (RCR) | payer MEDICARE, OTHER | END | disposition home or self-care (01) | LOC: CR3 12-20 13:30 | PROVIDERS: ATTEND Internal Medicine Cardiovascular Disease | DX: Z29.8 Encounter for other specified prophylactic measures (principal) ==

== ENCOUNTER 2020-01-28 06:53 | Outpatient (RCR) | payer MEDICARE, OTHER | END 2020-02-20 | disposition home or self-care (01) | LOC: CR3 06:53 | PROVIDERS: ATTEND Internal Medicine Cardiovascular Disease | DX: Z29.8 Encounter for other specified prophylactic measures (principal) ==

== ENCOUNTER → 2020-09-07 | Outpatient (CLI) | payer MEDICARE, OTHER ==
--- NOTE | 2020-09-07 11:29 | Diagnostic Imaging Report ---
INDICATION: Routine screening. Comparison is made with prior mammogram 09/06/2019 and 08/10/2018. 2-D and 3-D bilateral screening mammography was performed with CAD. Scattered fibroglandular densities are identified bilaterally. The parenchymal pattern is stable. No dominant mass or malignant appearing microcalcifications are seen. There are scattered benign calcifications in both breasts. Axillae are unremarkable. IMPRESSION: BI-RADS Category 2 No mammographic features suspicious for malignancy are identified. ACR BI-RADS Category 2: Benign findings. Result letter will be mailed to the patient. Note: At least 10% of breast cancer is not imaged by mammography. Dictated by: Dictated on workstation # [id number]
== END ==
LOC: RAD 09:46
PROVIDERS: ATTEND Family Medicine
DX: Z12.31 Encounter for screening mammogram for malignant neoplasm of breast (principal)
CPT/HCPCS: 77063; 77067

== ENCOUNTER → 2021-02-28 | Outpatient (RCR) | payer MEDICARE, OTHER | END | disposition home or self-care (01) | LOC: CR3 01-29 05:56 | PROVIDERS: ATTEND Internal Medicine Cardiovascular Disease | DX: Z29.8 Encounter for other specified prophylactic measures (principal) ==

== ENCOUNTER → 2021-03-23 | Outpatient (CLI) | payer MEDICARE, OTHER | LOC: CARD 08:30 | PROVIDERS: ATTEND Physician Assistant | DX: I25.10 Atherosclerotic heart disease of native coronary artery without angina pectoris (principal); I34.0 Nonrheumatic mitral (valve) insufficiency; I10 Essential (primary) hypertension | CPT/HCPCS: 93306 ==

== ENCOUNTER 2021-03-30 07:36 | Outpatient (RCR) | payer MEDICARE, OTHER | END 2021-04-01 | disposition home or self-care (01) | LOC: CR3 07:36 | PROVIDERS: ATTEND Internal Medicine Cardiovascular Disease | DX: Z29.8 Encounter for other specified prophylactic measures (principal) ==

== ENCOUNTER → 2021-05-02 | Outpatient (RCR) | payer MEDICARE | END | disposition home or self-care (01) | LOC: CR3 04-02 06:39 | PROVIDERS: ATTEND Internal Medicine Cardiovascular Disease | DX: Z29.8 Encounter for other specified prophylactic measures (principal) ==

== ENCOUNTER 2021-05-30 07:02 | Outpatient (RCR) | payer MEDICARE ==
[~2021-05-30 07:02] MED LIST changes: -SULF1TAB35 PO; +SULF1TAB38 PO
== END 2021-06-03 | disposition home or self-care (01) ==
LOC: CR3 07:02
PROVIDERS: ATTEND Internal Medicine Cardiovascular Disease
DX: Z29.8 Encounter for other specified prophylactic measures (principal)

== ENCOUNTER 2021-07-02 07:05 | Outpatient (RCR) | payer MEDICARE | END 2021-07-04 | disposition home or self-care (01) | LOC: CR3 07:05 | PROVIDERS: ATTEND Internal Medicine Cardiovascular Disease | DX: Z29.8 Encounter for other specified prophylactic measures (principal) ==

== ENCOUNTER → 2021-07-04 | Outpatient (CLI) | payer MEDICARE, OTHER ==
[~2021-07-04] MED LIST changes: +CATHETER FLUSH 10 ML SYR IV PRN; +REGADENOSON 0.4 MG/5 ML SYR (LEXISCAN) IV ONE
[2021-07-04 09:05] VITALS: BP 148/86
[2021-07-04 09:11] VITALS: BP 122/76
--- NOTE | 2021-07-04 12:21 | Cardiology Stress Test Report ---
Stress Test Report Date of Procedure/Referring: Date of Procedure: Jul 04, 2021 Tran [place] Admitting Physician Aric Byrnes MD Indications: CAD Baseline Heart Rate: 61 Baseline Blood Pressure: Blood Pressure Systolic: 122 Blood Pressure Diastolic: 76 Baseline Vitals Vital Signs Date Time Temp Pulse Resp B/P (MAP) Pulse Ox O2 Delivery O2 Flow Rate FiO2 07/04/21 09:05 71 18 148/86 (106) 99 Room Air Baseline EKG: Baseline EKG: NSR Summary After explaining the procedure to the patient, she signed a consent and then brought to the stress nuclear laboratory. Patient received 0.4 mg Lexiscan for stress test, ECG, heart rate and blood pressure were monitored continuously. Resting and stress dose of radio tracer were injected, imaging was acquired and reviewed in short axis, horizontal long axis and vertical long axis views. TID: 1.49 SSS: 7 SDS: 4 EF: 65 1. Patient tolerated Lexiscan well 2. Motion artifact affecting the quality of the images 3. Transient ischemic dilatation, 1.49 value 4. Breast attenuation with reversible ischemia involving the mid to apical inferior wall and true apex 5. Normal left ventricular size, EF 65% MERYL JSOEPH MD Jul 04, 2021 12:21
== END ==
LOC: CARD 07:30
PROVIDERS: ATTEND Physician Assistant
DX: I25.10 Atherosclerotic heart disease of native coronary artery without angina pectoris (principal); I10 Essential (primary) hypertension
CPT/HCPCS: 78452; 93017; A9502

== ENCOUNTER 2021-07-16 07:00 | Outpatient (RCR) | payer MEDICARE ==
[~2021-07-16 07:00] MED LIST changes: -CATHETER FLUSH 10 ML SYR IV PRN; -REGADENOSON 0.4 MG/5 ML SYR (LEXISCAN) IV ONE
[2021-07-18] MEDS ORDERED: CHOL20002 PO (08:33)
[2021-07-18] MEDS ORDERED: LOSA100T57 PO (08:33)
[2021-07-18] MEDS ORDERED: FLUT1AER IH (08:33)
[2021-07-18] MEDS ORDERED: LIOT5TAB10 PO (08:33)
[2021-07-18] MEDS ORDERED: MIRA50TA PO (08:33)
[2021-07-18] MEDS ORDERED: PRAV40TA2 PO (08:33)
[2021-07-18] MEDS ORDERED: LEVO75CA5 PO (08:33)
[2021-07-18] MEDS ORDERED: CYAN200014 PO (08:33)
[2021-07-18] MEDS ORDERED: FEXO180T84 PO (08:33)
[2021-07-18] MEDS ORDERED: CALC600T91 PO (08:33)
[2021-07-18] MEDS ORDERED: MULT-436 PO (08:33)
[2021-07-18] MEDS ORDERED: GABA300C PO (08:33)
[2021-07-18] MEDS ORDERED: GEMF600T88 PO (08:33)
[2021-07-19] MEDS ORDERED: ASPI-1238 PO (05:48)
[2021-07-19] MEDS ORDERED: CLOP75TA28 PO (05:48)
== END 2021-08-05 | disposition home or self-care (01) ==
LOC: CR3 07:00
PROVIDERS: ATTEND Internal Medicine Cardiovascular Disease
DX: Z29.8 Encounter for other specified prophylactic measures (principal)

== ENCOUNTER 2021-07-18 09:00 | Day surgery (SDC) | payer MEDICARE ==
[2021-07-18] VITALS (9 sets, daily range): BP systolic 114–169; BP diastolic 65–96
[~2021-07-18] VITALS: Ht 154.9 cm; Wt 70.2 kg
[2021-07-18 07:33] LABS: HEMATOCRIT 38 % (35-52); HEMOGLOBIN 12.9 g/dL (11.5-16.0); MEAN CORPUSCULAR HEMOGLOBIN 33 pg (25-34); MEAN CORPUSCULAR HGB CONC 34 g/dL (32-36); MEAN CORPUSCULAR VOLUME 95 fL (80-99); PLATELET COUNT 291 10^3/uL (130-400); WHITE BLOOD COUNT 7.3 10^3/uL (4.3-11.0)
[2021-07-18 07:42] LABS: POTASSIUM 3.8 MMOL/L (3.6-5.0)
[2021-07-18 07:43] LABS: ALBUMIN 4.3 GM/DL (3.2-4.5)
[2021-07-18 07:44] LABS: CALCIUM 9.9 MG/DL (8.5-10.1)
[2021-07-18 07:45] LABS: TOTAL PROTEIN 7.8 GM/DL (6.4-8.2)
[2021-07-18 07:46] LABS: PROTHROMBIN TIME PATIENT 13.4 SEC (12.2-14.7)
[2021-07-18 07:47] LABS: BILIRUBIN,TOTAL 0.5 MG/DL (0.1-1.0)
[2021-07-18 07:49] LABS: CREATININE SERUM 1.14 MG/DL (0.60-1.30)
--- NOTE | 2021-07-18 07:54 | Diagnostic Imaging Report ---
Indication: Pre-heart catheterization Upright portable chest shows normal heart size and vascularity. There is linear scarring in the left midlung. No mass or infiltrate is seen. There is no effusion or pneumothorax. There is no acute bony abnormality. IMPRESSION: No acute abnormality is seen with no change from 05/05/2015. Dictated by: Dictated on workstation # [id number]
--- NOTE | 2021-07-18 08:50 | Conscious Sedation/ASA ---
Conscious Sedation Pre-Proced Time 08:49 ASA Score 3 For ASA 3 and 4: Consider anesthesia and medical clearance. Also, for patients with a history of failed moderate sedation consider anesthesia. Airway Lungs Heart ASA score ASA 1: a normal healthy patient ASA 2: a patient with a mild systemic disease (mid diabetes, controlled hypertension, obesity x ASA 3: a patient with a severe systemic disease that limits activity (angina, COPD, prior Myocardial infarction) ASA 4: a patient with an incapacitating disease that is a constant threat to life (CHF, renal failure) ASA 5: a moribund patient not expected to survive 24 hrs. (ruptured aneurysm) ASA 6: a declared brain- patient whose organs are being harvested. For emergent operations, add the letter E after the classification Mallampati Classification Grade 3 Sedation Plan Analgesia, Amnesia, Plan communicated to team members, Discussed options with patient/fam, Discussed risks with patient/fam The patient is an appropriate candidate to undergo the planned procedure, sedation, and anesthesia. The patient immediately re-assessed prior to indication. MERYL JOSEPH MD Jul 18, 2021 08:50
[~2021-07-18 09:00] MED LIST changes: +CALC600T91 PO; +CHOL20002 PO; +CYAN200014 PO; +FEXO180T84 PO; +FLUT1AER IH; +GABA300C PO; +GEMF600T88 PO; +HEParin (CATH LAB) 2,000 ML IV ONE; +LEVO75CA5 PO; +LIDOCAINE 1% INJ 20 ML 20 ML VIAL ONE; +LIOT5TAB10 PO; +LOSA100T57 PO; +MIRA50TA PO; +MULT-436 PO; +NS IV 1000 ML 1,000 ML IV SCH; +NS IV 1000 ML 1,000 ML ONE; +PRAV40TA2 PO
--- NOTE | 2021-07-18 10:21 | Cardiac Cath Report ---
Cardiac Cath Report Physician (s)/Parent Partner (s) Physician MERYL JOSEPH MD Pre-Procedure Diagnosis Pre-Procedure Diagnosis: Coronary artery disease Post-Procedure Note Procedure Start Date: Jul 18, 2021 Name of Procedure: Left heart catheterization Attempt for intervention on the right coronary artery Findings/Procedure Note PROCEDURE NOTE: 75-year-old lady with history of coronary artery disease moderate disease previously, had an abnormal stress test, scheduled for cardiac catheterization possible PTCA. After explaining the procedure to the patient, all pros and cons were explained, all questions were answered. The patient signed the consent and then she was placed on the cardiac catheterization laboratory. Groin was prepped SL fashion local anesthesia was used. Sheath placed in the right radial artery, [place] catheter was advanced to the left ventricular cavity, pressure was measured, pullback LV to aorta was done, intubated the right and left coronary system and angiogram was done. Patient was noted to have severe stenosis in the mid right coronary artery and moderate to severe stenosis in the mid LAD. She was given a total of 6000 units of heparin, I attempted to cross the right coronary artery lesion using multiple different guides without success, I was able to advance a wire to the distal right coronary artery, I was unable to advance a balloon. I had good engagement with some guides without the ability to cross the lesion. I decided to abort the procedure out of concern that doing balloon angioplasty might result in a small dissection or large dissection and I will not be able to advance a stent. I decided to defer the procedure and arrange for evaluation at a tertiary care center for possible high risk intervention versus bypass surgery. At the end of the procedure the sheath was removed. Vascular band deployed FINDINGS: Hemodynamics LV 119/12, end-diastolic pressure of 12 Aorta 119/69 mean of 91 ANATOMY: Left Main is calcified with no obstructive disease Left Anterior Descending is moderate in size, calcified artery with severe stenosis at the midportion Left Circumflex is moderate in size with no obstructive disease Right Coronary Artery is tortuous artery, calcified artery with severe stenosis at the midportion, subtotal occlusion. Attempt for intervention failed to cross the lesion with a balloon, procedure was aborted and decision was made to arrange for evaluation at a tertiary care center LV Gram was not done, pressure was measured CONCLUSION: 1. 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 Attempt for intervention failed to cross the lesion with a balloon in the mid right coronary artery after using multiple guides. Procedure was aborted and arrangement for evaluation at a tertiary care center 3. Normal left ventricular end-diastolic pressure DISCUSSION AND RECOMMENDATION: Patient was started on aspirin and Plavix and will arrange for evaluation for tertiary care center Anesthesia Type: Conscious Sedation Estimated blood loss (mL): 35 ml Contrast Amount: 115 ml Total Radiation Dose: 858 mGy Post-Procedure Diagnosis Post-operative diagnosis: Coronary artery disease Hypertension Hyperlipidemia Chest pain MERYL JOSEPH MD Jul 18, 2021 10:21
[2021-07-18] MEDS: NS IV 1000 ML 1,000 ML IV SCH ×2 (12:57→20:15)
[2021-07-18] MEDS: GEMFIBROZIL 600 MG (LOPID) TAB PO SCH (19:36)
[2021-07-18] MEDS: SIMvastatin 20 MG (ZOCOR) TAB PO SCH ×2 (19:36→19:39)
[2021-07-18] MEDS ORDERED: RT--FLUTICASONE/SALMETEROL 113-14 (AIRDUO RespiCLICK) IH SCH (21:00)
[2021-07-18] MEDS ORDERED: GABAPENTIN 300 MG (NEURONTIN) CAP PO SCH (21:00)
[2021-07-19 01:00] VITALS: BP 147/60
[2021-07-19 04:00] VITALS: BP 148/81
[2021-07-19] MEDS ORDERED: CLOP75TA28 PO (05:48)
[2021-07-19] MEDS ORDERED: ASPI-1238 PO (05:48)
--- NOTE | 2021-07-19 05:49 | Discharge Inst-Post CATH ---
Discharge Inst-CATH/EP Problems Reviewed?: Yes Post Cardiac Cath/EP D/C Inst Follow Up/Plan Appointment with Dr Hannah in 2-4 weeks <b>CARDIAC CATH/EP PROCEDURE DISCHARGE INSTRUCTIONS</b> ACTIVITY * Go Home directly and rest. * Limit activity of the leg (or wrist if it was used) for 7 days including aerobics, swimming, jogging, bicycling, etc. * Restrict stair-climbing for 7 days if possible, if not, climb up with your non-cath leg, then bring together on the same step. * Avoid lifting, pushing, pulling or excessive movement of the affected extremity for 7 days. * Customary sexual activity may be resumed after 2 days-use caution not to use a position that strains or causes pain to the affected extremity. * No driving for 24 hours. * NO SMOKING. * Avoid straining for bowel movements for 7 days. * Gentle walking on level ground is allowed. * Returning to work will depend on the type of procedure and the results. Your doctor will discuss this with you. CALL YOUR DOCTOR FOR ANY OF THE FOLLOWING: *If bleeding from the puncture site occurs- Apply gentle pressure to site with clean cloth and call your doctor or EMS. * If a knot or lump forms under the skin, increases in size, or causes pain. * If bruising appears to be worsening or moving further down your leg instead of disappearing. * Temperature above 101 F. CARE OF YOUR GROIN INCISION; * Bruising or purple discoloration of the skin near the puncture site is common. * You may shower only, no bathtub bathing for 5 days. Be careful to avoid slipping as your leg may feel stiff. * If a closure device was used on your femoral artery, please see the attached guide regarding care of the device and your leg. * Leave dressing on FOR 24 hours. CARE OF YOUR WRIST INCISION; * Bruising or purple discoloration of the skin near the puncture site is common. * You may shower. * DO NOT submerge wrist. * Leave dressing on FOR 24 hours. MERYL HANNAH MD Jul 19, 2021 05:49
[2021-07-19] MEDS: NS IV 1000 ML 1,000 ML IV SCH (06:25)
[2021-07-19] MEDS ORDERED: LEVOTHYROXINE 75 MCG (LEVOTHROID) TABLET PO SCH (06:30)
[2021-07-19] MEDS: GEMFIBROZIL 600 MG (LOPID) TAB PO SCH (07:52)
[2021-07-19 08:00] VITALS: BP 155/82
--- NOTE | 2021-07-19 08:08 | Cardiology Progress Note ---
Subjective Date Seen by Provider: Jul 19, 2021 Time Seen by Provider: 08:07 Subjective/Events-last exam Patient is laying down in bed, her wrist is healing well, no chest pain was reported Review of Systems General: No Chills, No Night Sweats, No Fatigue, No Malaise, No Appetite, No Other HEENT: No Head Aches, No Visual Changes, No Eye Pain, No Ear Pain, No Dysphasia, No Sinus Congestion, No Post Nasal Drip, No Sore Throat, No Other Pulmonary: No Dyspnea, No Cough, No Pleuritic Chest Pain, No Other Cardiovascular: No: Chest Pain, Palpitations, Orthopnea, Paroxysmal Noc. Dyspnea, Edema, Lt Headedness, Other Objective-Cardiology Exam Last Set of Vital Signs Vital Signs 07/18/21 07/19/21 19:46 04:00 Temp 36.2 Pulse 64 Resp 18 B/P (MAP) 148/81 (103) Pulse Ox 97 O2 Delivery Room Air General: Alert, Oriented X3, Cooperative HEENT: Atraumatic, PERRLA Neck: Supple, No JVD, No Thyromegaly Lungs: Clear to Auscultation, Normal Air Movement Heart: Regular Rate, Normal S1, Normal S2, No Murmurs Abdomen: Normal Bowel Sounds, Soft, No Tenderness, No Hepatosplenomegaly, No Masses Extremities: No Clubbing, No Cyanosis, No Edema, Normal Pulses, No Tenderness/Swelling Skin: No Rashes, No Breakdown, No Significant Lesion Neuro: Normal Gait, Normal Speech, Strength at 5/5 X4 Ext, Normal Tone, Sensation Intact Psych/Mental Status: Mental Status NL, Mood NL A/P-Cardiology Admission Diagnosis Coronary artery disease Hypertension Hyperlipidemia Assessment/Plan Coronary artery disease, extensive disease, failed attempt for intervention, I considered high risk for complications subsequently I aborted the procedure and we will arrange for evaluation at a tertiary care center for possible high risk intervention Hypertension, continue current medication Hyperlipidemia, monitor lipids Patient was educated on taking aspirin and Plavix starting today. Provided with prescription. MERYL JOSEPH MD Jul 19, 2021 08:08
[2021-07-19] MEDS ORDERED: ASPIRIN E.C. 81 MG (ECOTRIN) TAB PO SCH (09:00)
[2021-07-19] MEDS ORDERED: LOSARTAN 100 MG (COZAAR) TABLET PO SCH (09:00)
[2021-07-19] MEDS ORDERED: CLOPIDOGREL 75 MG (PLAVIX) TABLET PO SCH (09:00)
== END 2021-07-19 08:30 | disposition home or self-care (01) ==
LOC: CATH 09:00 → CSD 10:59 → CATH 07-19 08:30
PROVIDERS: ATTEND Internal Medicine Cardiovascular Disease
DX: I25.10 Atherosclerotic heart disease of native coronary artery without angina pectoris (principal); I10 Essential (primary) hypertension; E78.5 Hyperlipidemia, unspecified; R07.9 Chest pain, unspecified; Z88.1 Allergy status to other antibiotic agents; Z79.899 Other long term (current) drug therapy
CPT/HCPCS: 71045; 80053; 80061; 85027; 85347; 85610; 85730; 87081; 93458; C1725; C1769; C1887 ×3; C1894; 36415

== ENCOUNTER → 2021-09-10 | Outpatient (CLI) | payer MEDICARE ==
[~2021-09-10] MED LIST changes: +ASPI-1238 PO; +CLOP75TA28 PO; -HEParin (CATH LAB) 2,000 ML IV ONE; -LIDOCAINE 1% INJ 20 ML 20 ML VIAL ONE; -NS IV 1000 ML 1,000 ML IV SCH; -NS IV 1000 ML 1,000 ML ONE
--- NOTE | 2021-09-10 12:34 | Diagnostic Imaging Report ---
INDICATION: Routine screening. COMPARISON: 09/07/2020 and 09/06/2019. TECHNIQUE: 2D and 3D bilateral screening mammography was performed with CAD. FINDINGS: Scattered fibroglandular densities are identified bilaterally. The parenchymal pattern is stable. No mass or malignant-appearing microcalcifications are seen. There are scattered benign appearing calcifications. The axillae are unremarkable. IMPRESSION: No mammographic features suspicious for malignancy are identified. ACR BI-RADS Category 2: Benign findings. Result letter will be mailed to the patient. Note: At least 10% of breast cancer is not imaged by mammography. Dictated by: Dictated on workstation # [id number]
== END ==
LOC: RAD 08:38
PROVIDERS: ATTEND Family Medicine
DX: Z12.31 Encounter for screening mammogram for malignant neoplasm of breast (principal)
CPT/HCPCS: 77063; 77067

== ENCOUNTER 2021-09-14 07:30 | Outpatient (RCR) | payer MEDICARE | END 2021-09-16 | LOC: CR3 07:30 | PROVIDERS: ATTEND Internal Medicine Cardiovascular Disease | DX: Z29.8 Encounter for other specified prophylactic measures (principal) ==

== ENCOUNTER 2021-10-08 07:23 | Outpatient (RCR) | payer MEDICARE | END 2021-10-17 | disposition home or self-care (01) | LOC: CR3 07:23 | PROVIDERS: ATTEND Internal Medicine Cardiovascular Disease | DX: Z29.8 Encounter for other specified prophylactic measures (principal) ==

== ENCOUNTER 2021-12-14 07:06 | Outpatient (RCR) | payer MEDICARE | END 2021-12-16 | disposition home or self-care (01) | LOC: CR3 07:06 | PROVIDERS: ATTEND Internal Medicine Cardiovascular Disease | DX: Z29.8 Encounter for other specified prophylactic measures (principal) ==

== ENCOUNTER → 2022-02-13 | Outpatient (RCR) | payer MEDICARE | END | disposition home or self-care (01) | LOC: CR3 12-24 07:08 | PROVIDERS: ATTEND Internal Medicine Cardiovascular Disease | DX: Z29.8 Encounter for other specified prophylactic measures (principal) ==

== ENCOUNTER 2022-04-10 07:33 | Outpatient (RCR) | payer MEDICARE | END 2022-04-15 | disposition home or self-care (01) | LOC: CR3 07:33 | PROVIDERS: ATTEND Internal Medicine Cardiovascular Disease | DX: Z29.8 Encounter for other specified prophylactic measures (principal) ==

== ENCOUNTER 2022-06-14 06:55 | Outpatient (RCR) | payer MEDICARE | END 2022-06-15 | disposition home or self-care (01) | LOC: CR3 06:55 | PROVIDERS: ATTEND Internal Medicine Cardiovascular Disease | DX: Z29.8 Encounter for other specified prophylactic measures (principal) ==

== ENCOUNTER → 2022-08-16 | Outpatient (RCR) | payer MEDICARE | END | disposition home or self-care (01) | LOC: CR3 06-17 06:59 | PROVIDERS: ATTEND Internal Medicine Cardiovascular Disease | DX: Z29.8 Encounter for other specified prophylactic measures (principal) ==

== ENCOUNTER → 2022-09-11 | Outpatient (CLI) | payer MEDICARE ==
--- NOTE | 2022-09-11 10:40 | Diagnostic Imaging Report ---
Indication: Routine screening. Comparison is made with prior mammogram from 09/10/2021 and 09/07/2020. 2-D and 3-D bilateral screening mammography was performed with CAD. CAD is utilized. The current study was also evaluated with a Computer Aided Detection (CAD) system. Scattered fibroglandular densities are identified bilaterally. The parenchymal pattern is stable. There are scattered benign calcifications. No mass or malignant-appearing microcalcifications are seen. Axillae are unremarkable. IMPRESSION: BI-RADS Category 2 No mammographic features suspicious for malignancy are identified. ACR BI-RADS Category 2: Benign findings. Result letter will be mailed to the patient. Note: At least 10% of breast cancer is not imaged by mammography. Dictated by: Dictated on workstation # [id number]
== END ==
LOC: RAD 08:00
PROVIDERS: ATTEND Family Medicine
DX: Z12.31 Encounter for screening mammogram for malignant neoplasm of breast (principal)
CPT/HCPCS: 77063; 77067

== ENCOUNTER → 2022-10-16 | Outpatient (RCR) | payer MEDICARE ==
[~2022-10-16] MED LIST changes: +ALBU8.5H6 IH; -RT-ALBUINH IH
== END | disposition home or self-care (01) ==
LOC: CR3 08-19 07:36
PROVIDERS: ATTEND Internal Medicine Cardiovascular Disease
DX: Z29.8 Encounter for other specified prophylactic measures (principal)

== ENCOUNTER 2022-11-07 03:11 | Observation (INO) | payer MEDICARE ==
[2022-11-07] VITALS (7 sets, daily range): BP systolic 119–140; BP diastolic 73–82
[~2022-11-07] VITALS: Ht 154 cm; Wt 71.1 kg
[2022-11-07] MEDS ORDERED: ASPIRIN 81 MG CHEW (CHILDREN'S ASA) PO ONE (03:15)
[2022-11-07] MEDS ORDERED: NITROGLYCERIN 0.4 MG SL TABS BTL 25'S SL PRN ×2 (03:15→06:00)
--- NOTE | 2022-11-07 03:30 | ED Chest Pain ---
General Chief Complaint: Chest Pain Stated Complaint: CP Source: patient History of Present Illness Date Seen by Provider: Nov 07, 2022 Time Seen by Provider: 03:14 Initial Comments PT ARRIVES VIA EMS FROM HOME PT WOKE UP AROUND [id number] THIS AM, WITH CHEST PAIN PAIN IS IN CENTER OF CHEST / CENTER OF STERNUM AND RADIATES THRU TO BACK--STATES THE PAIN IN HER BACK WAS BAD OR WORSE THAN THE PAIN IN THE FRONT OF HER CHEST + SHORTNESS OF BREATH, PT STATES SHE IS ASTHMATIC AND IS ALWAYS SHORT OF BREATH NO SWEATS NO NAUSEA/VOMITING TONIGHT, BUT DID VOMIT "OUT OF THE BLUE" YESTERDAY AFTERNOON NO SWELLING IN LEGS /FEET OR PAIN IN CALVES NO PALPITATIONS NO DIZZINESS OR SYNCOPE EMS GAVE 4 BABY ASPIRIN AND 1" NITROPASTE PT STATES PAIN WAS 8/10, AND NOW THERE IS NO PAIN IN HER CHEST, BUT STILL HAS SOME PAIN IN HER BACK--RATES IT 2-3/10--STATES OVERALL SHE IS MUCH BETTER. BP FOR EMS WAS 185/101, THEN DOWN TO 148/61 AFTER NITROPASTE. PT HAS HISTORY OF CAD, AND HAD 2 STENTS PLACED 07/[address] GUZMAN AT [facility]. SHE SEES DR. JOSEPH LOCALLY FOR CARDIOLOGY SHE IS NOT ON ANY BLOOD THINNERS STATES SHE WAS TAKING PLAVIX BUT IT CAUSED EXCESSIVE BRUISING, SO IT WAS DISCONTINUED. PCP: DR. BETTE FUNEZ CURING PRESS OPERATOR: DR. JOSEPH Allergies and Home Medications Allergies Coded Allergies: ciprofloxacin (Verified Allergy, Severe, 10/03/13) gluten (Unverified Allergy, Severe, 03/23/15) Patient Home Medication List Home Medication List Reviewed: Yes Aspirin (Aspirin EC) 81 Mg Tablet.dr, 81 MG PO DAILY Prescribed by: MERYL JOSEPH on 07/19/21547 Calcium Carbonate (Calcium) 600 Mg Tablet, 600 MG PO DAILY, (Reported) Entered as Reported by: GENOVEVA BAJWA on 07/18/21832 Cholecalciferol (Vitamin D3) (Vitamin D3) 50 Mcg Capsule, 50 MCG PO DAILY, (Reported) Entered as Reported by: GENOVEVA BAJWA on 07/18/21832 Clopidogrel Bisulfate (Clopidogrel) 75 Mg Tablet, 75 MG PO DAILY Prescribed by: MERYL JOSEPH on 07/19/21547 Cyanocobalamin (Vitamin B-12) (Vitamin B-12) 2,000 Mcg Tablet, 2,000 MCG PO DAILY, (Reported) Entered as Reported by: GENOVEVA BAJWA on 07/18/21832 Fexofenadine HCl (Carmen Allergy) 180 Mg Tablet, 180 MG PO DAILY, (Reported) Entered as Reported by: GENOVEVA BAJWA on 07/18/21832 Fluticasone/Vilanterol (Breo Ellipta 100-25 Mcg INH) 1 Each Blst.w.dev, 1 EACH IH DAILY, (Reported) Entered as Reported by: GENOVEVA BAJWA on 07/18/21832 Gabapentin (Neurontin) 300 Mg Capsule, 300 MG PO HS, (Reported) Entered as Reported by: GENOVEVA BAJWA on 07/18/21832 Gemfibrozil (Gemfibrozil) 600 Mg Tablet, 600 MG PO BID, (Reported) Entered as Reported by: GENOVEVA BAJWA on 07/18/21832 Levothyroxine Sodium (Levothyroxine) 75 Mcg Capsule, 75 MCG PO DAILY, (Reported) Entered as Reported by: GENOVEVA BAJWA on 07/18/21832 Liothyronine Sodium (Liothyronine Sodium) 5 Mcg Tablet, 5 MCG PO DAILY, (Reported) Entered as Reported by: GENOVEVA BAJWA on 07/18/21832 Losartan Potassium (Losartan Potassium) 100 Mg Tablet, 100 MG PO DAILY, (Reported) Entered as Reported by: GENOVEVA BAJWA on 07/18/21832 Mirabegron (Myrbetriq) 50 Mg Tab.er.24h, 50 MG PO DAILY, (Reported) Entered as Reported by: GENOVEVA BAJWA on 07/18/21832 Multivitamin with Minerals (One Daily Complete) 1 Each Tablet, 1 EACH PO DAILY, (Reported) Entered as Reported by: GENOVEVA BAJWA on 07/18/21832 Pravastatin Sodium (Pravastatin Sodium) 40 Mg Tablet, 40 MG PO HS, (Reported) Entered as Reported by: GENOVEVA BAJWA on 07/18/21832 Review of Systems Review of Systems Constitutional: no symptoms reported; No diaphoresis, No dizziness EENTM: No Symptoms Reported Respiratory: See HPI, Shortness of Air Cardiovascular: See HPI, Chest Pain; Denies Edema, Denies Irregular Heart Rate, Denies Lightheadedness, Denies Palpitations, Denies Syncope Gastrointestinal: See HPI Genitourinary: No Symptoms Reported Musculoskeletal: see HPI, back pain Skin: no symptoms reported Psychiatric/Neurological: No Symptoms Reported Endocrine: No Symptoms Reported Hematologic/Lymphatic: No Symptoms Reported Past Uiwbgcg-Pmpdnh-Juxphy Hx Patient Social History Tobacco Use?: No Smoking Status: Never a Smoker Smokeless Tobacco Frequency: Never a User Use of E-Cig and/or Vaping Bassam: Never a User Substance use?: No Alcohol Use?: No Immunizations Up To Date Tetanus Booster (TDap): Unknown PED Vaccines UTD: No Seasonal Allergies Seasonal Allergies: No Past Medical History Surgeries: Yes Adenoidectomy, Bowel Surgery, CABG, Coronary Stent, Eye Surgery, Gallbladder, Orthopedic, Tonsillectomy, Tubal Ligation Respiratory: Yes Asthma Cardiac: Yes (CARDIAC CATH-STENTS X 2-- 07/2021) Coronary Artery Disease, Deep Vein Thrombosis, High Cholesterol, Hypertension Neurological: Yes Multiple Sclerosis Reproductive Disorders: No Female Reproductive Disorders: Denies 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 Sexually Transmitted Disease: No HIV/AIDS: No Genitourinary: Yes UTI-Chronic Gastrointestinal: Yes Crohns Disease Musculoskeletal: Yes Arthritis Endocrine: Yes Hypothyroidsim HEENT: Yes Cataract Loss of Vision: Bilateral Hearing Impairment: Denies Cancer: Yes Skin Did You Recieve Any Treatments: Yes What Type of Treatment Did You: Surgical Intervention Psychosocial: Yes Anxiety, Depression Integumentary: No Blood Disorders: No Adverse Reaction/Blood Tranf: No (HAS HAD BLOOD WITH NO REACTION) Family Medical History Cancer 03 MOTHER (PANCREATIC CA) Family history: Asthma 09 BROTHER (ASTHMA) Family history: Cardiovascular disease 03 FATHER ([place]) Family history: Hypertension 09 BROTHER 09 BROTHER Family history: Thyroid disorder 09 BROTHER Heart disease 03 FATHER Hypercholesterolemia 09 BROTHER Myocardial infarction 03 FATHER PAST SURGICAL HISTORY: -EGD'S AND COLONOSCOPIES--MOST RECENT ONE 09/09/[address] KABA CARDIAC CATH 07/18/[address] JOSEPH: CONCLUSION: 1. 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 Attempt for intervention failed to cross the lesion with a balloon in the mid right coronary artery after using multiple guides. Procedure was aborted and arrangement for evaluation at a tertiary care center 3. Normal left ventricular end-diastolic pressure DISCUSSION AND RECOMMENDATION: Patient was started on aspirin and Plavix and will arrange for evaluation for tertiary care center Physical Exam Vital Signs Vital Signs - First Documented 11/07/22 03:18 O2 Flow Rate 2.00 Capillary Refill : Height, Weight, BMI Height: 5'1.00" Weight: 161lbs. 0.0oz. 73.795979et; 29.25 BMI Method:Stated General Appearance: No Apparent Distress, WD/WN, Other (VERY TALKATIVE, LAUGHING AND JOKING AT TIMES. DOES NOT APPEAR ILL OR TO BE IN ANY DISCOMFORT OR DISTRESS. 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 as Tested Skin: Normal Color, Warm/Dry; No Rash Progress/Results/Core Measures Results/Orders Lab Results Laboratory Tests Test 11/07/22 03:30 Range/Units White Blood Count 6.5 4.3-11.0 10^3/uL Red Blood Count 3.74 L 3.80-5.11 10^6/uL Hemoglobin 11.9 11.5-16.0 g/dL Hematocrit 35 35-52 % Mean Corpuscular Volume 94 80-99 fL Mean Corpuscular Hemoglobin 32 25-34 pg Mean Corpuscular Hemoglobin Concent 34 32-36 g/dL Red Cell Distribution Width 11.8 10.0-14.5 % Platelet Count 237 130-400 10^3/uL Mean Platelet Volume 10.6 9.0-12.2 fL Immature Granulocyte % (Auto) 0 % Neutrophils (%) (Auto) 71 42-75 % Lymphocytes (%) (Auto) 13 12-44 % Monocytes (%) (Auto) 10 0-12 % Eosinophils (%) (Auto) 5 0-10 % Basophils (%) (Auto) 1 0-10 % Neutrophils # (Auto) 4.7 1.8-7.8 10^3/uL Lymphocytes # (Auto) 0.8 L 1.0-4.0 10^3/uL Monocytes # (Auto) 0.7 0.0-1.0 10^3/uL Eosinophils # (Auto) 0.3 0.0-0.3 10^3/uL Basophils # (Auto) 0.1 0.0-0.1 10^3/uL Immature Granulocyte # (Auto) 0.0 0.0-0.1 10^3/uL Prothrombin Time 13.4 12.2-14.7 SEC INR Comment 1.0 0.8-1.4 Activated Partial Thromboplast Time 28 24-35 SEC D-Dimer 0.88 H 0.00-0.49 UG/ML Sodium Level 140 135-145 MMOL/L Potassium Level 4.0 3.6-5.0 MMOL/L Chloride Level 110 H 98-107 MMOL/L Carbon Dioxide Level 18 L 21-32 MMOL/L Anion Gap 12 5-14 MMOL/L Blood Urea Nitrogen 19 H 7-18 MG/DL Creatinine 1.05 0.60-1.30 MG/DL Estimat Glomerular Filtration Rate 55 BUN/Creatinine Ratio 18 Glucose Level 100 70-105 MG/DL Calcium Level 9.7 8.5-10.1 MG/DL Corrected Calcium 9.8 8.5-10.1 MG/DL Magnesium Level 2.0 1.6-2.4 MG/DL Total Bilirubin 0.4 0.1-1.0 MG/DL Aspartate Amino Transf (AST/SGOT) 17 5-34 U/L Alanine Aminotransferase (ALT/SGPT) 14 0-55 U/L Alkaline Phosphatase 104 40-136 U/L Total Creatine Kinase 47 29-168 U/L Creatine Kinase MB 1.3 <6.6 NG/ML Myoglobin 66.6 10.0-92.0 NG/ML Troponin I < 0.028 <0.028 NG/ML B-Type Natriuretic Peptide 179.0 H <100.0 PG/ML Total Protein 6.7 6.4-8.2 GM/DL Albumin 3.9 3.2-4.5 GM/DL Amylase Level 74 25-125 U/L Lipase 45 8-78 U/L My Orders [facility] - JACQUELYN POLK DO Cbc With Automated Diff (11/07/22 03:15) Magnesium (11/07/22 03:15) Chest 1 View, Ap/Pa Only (11/07/22 03:15) Ekg Tracing (11/07/22 03:15) Comprehensive Metabolic Panel (11/07/22 03:15) Myoglobin Serum (11/07/22 03:15) Protime With Inr (11/07/22 03:15) Partial Thromboplastin Time (11/07/22 03:15) O2 (11/07/22 03:15) Monitor-Rhythm Ecg Trace Only (11/07/22 03:15) Ed Iv/Invasive Line Start (11/07/22 03:15) Creatine Kinase (11/07/22 03:15) Creatine Kinase Mb (11/07/22 03:15) Lipase (11/07/22 03:15) Amylase (11/07/22 03:15) Bnp Gene (11/07/22 03:15) Fibrin Degradation Products (11/07/22 03:15) Troponin I Gene (11/07/22 03:15) Nitroglycerin 0.4 Mg Btl 25's (Nitrostat (11/07/22 03:15) Aspirin Chewable Tablet (Baby Aspirin Ch (11/07/22 03:15) Enoxaparin Injection (Lovenox Injection) (11/07/22 04:45) Ed Admission (Communication) (11/07/22 04:35) Vital Signs/I&O 11/07/22 11/07/22 11/07/22 03:11 03:11 03:18 Temp 36.0 Pulse 70 Resp 16 B/P (MAP) 194/111 (138) Pulse Ox 97 O2 Delivery Room Air Room Air Nasal Cannula O2 Flow Rate 2.00 Progress Progress Note : Progress Note PT HAS BEEN GIVEN 324 MG OF ASPIRIN AND 1" NITROPASTE BY EMS PRIOR TO ARRIVAL PT'S PAIN IS SIGNIFICANTLY IMPROVED ON ARRIVAL. PAIN DID RESOLVE COMPLETELY WITHOUT ANY FURTHER TREATMENT. VITALS STABLE UNEVENTFUL ER STAY Initial ECG Impression Date: Nov 07, 2022 Initial ECG Impression Time: 03:23 Initial ECG Rate: 67 Initial ECG Rhythm: Normal Sinus Initial ECG Comparisson: Changed (PT NO LONGER HAS LBBB, THAT WAS PRESENT 07/18/2021) Diagnostic Imaging Comments CXR--NO ACUTE PROCESS, PENDING RADIOLOGIST REVIEW Reviewed: Reviewed by Me CP/AMI: Aspirin, ECG, Nitrates Departure Communication (Admissions) [id number]--SPOKE WITH DR. PASTRANA, HOSPITALIST, ACCEPTS PT FOR ADMIT. SHE WILL DO ADMIT ORDERS AND CONSULT DR. JOSEPH THIS AM. Impression Primary Impression: Chest pain Additional Impressions: HX OF CAD WITH STENTS HTN (hypertension) Disposition: ADMITTED INPATIENT Condition: Improved Admissions Decision to Admit Reason: Admit from ER (General) Decision to Admit/Date: Nov 07, 2022 Time/Decision to Admit Time: 04:35 Departure-Patient Inst. Referrals: BETTE FUNEZ MD (PCP/Family) Primary Care Physician JACQUELYN POLK DO Nov 07, 2022 03:30
[2022-11-07 03:37] LABS: BASOPHILS # (AUTO) 0.1 10^3/uL (0.0-0.1); BASOPHILS % (AUTO) 1 % (0-10); EOSINOPHILS # (AUTO) 0.3 10^3/uL (0.0-0.3); EOSINOPHILS % (AUTO) 5 % (0-10); HEMATOCRIT 35 % (35-52); HEMOGLOBIN 11.9 g/dL (11.5-16.0); LYMPHOCYTES # (AUTO) 0.8 10^3/uL (1.0-4.0); LYMPHOCYTES % (AUTO) 13 % (12-44); MEAN CORPUSCULAR HEMOGLOBIN 32 pg (25-34); MEAN CORPUSCULAR HGB CONC 34 g/dL (32-36); MEAN CORPUSCULAR VOLUME 94 fL (80-99); MEAN PLATELET VOLUME 10.6 fL (9.0-12.2); MONOCYTES # (AUTO) 0.7 10^3/uL (0.0-1.0); MONOCYTES % (AUTO) 10 % (0-12); NEUTROPHILS # (AUTO) 4.7 10^3/uL (1.8-7.8); NEUTROPHILS % (AUTO) 71 % (42-75); PLATELET COUNT 237 10^3/uL (130-400); WHITE BLOOD COUNT 6.5 10^3/uL (4.3-11.0)
[2022-11-07 03:58] LABS: PROTHROMBIN TIME PATIENT 13.4 SEC (12.2-14.7)
[2022-11-07 04:00] LABS: ALBUMIN 3.9 GM/DL (3.2-4.5)
[2022-11-07 04:02] LABS: CALCIUM 9.7 MG/DL (8.5-10.1)
[2022-11-07 04:03] LABS: TOTAL PROTEIN 6.7 GM/DL (6.4-8.2)
[2022-11-07 04:05] LABS: BILIRUBIN,TOTAL 0.4 MG/DL (0.1-1.0)
[2022-11-07 04:07] LABS: CREATININE SERUM 1.05 MG/DL (0.60-1.30)
[2022-11-07 04:17] LABS: CREATINE KINASE MB 1.3 NG/ML (<6.6)
[2022-11-07] MEDS ORDERED: ENOXAPARIN 80 MG/0.8 ML (LOVENOX) SYR SC ONE (04:45)
[2022-11-07] MEDS ORDERED: LACTULOSE SYRUP 10GM/15ML (ENULOSE) 30ML UDC PO PRN (06:00)
[2022-11-07] MEDS ORDERED: ANTACID SUSP 30 ML UDC (MYLANTA) PO PRN (06:00)
[2022-11-07] MEDS ORDERED: MELATONIN 3 MG TABLET PO PRN (06:00)
[2022-11-07] MEDS ORDERED: MILK OF MAGNESIA 400 MG/5 ML 30 ML UDC PO PRN (06:00)
[2022-11-07] MEDS ORDERED: ACETAMINOPHEN 325 MG TABLET PO PRN (06:00)
[2022-11-07] MEDS ORDERED: BISACODYL 10 MG SUPP (DULCOLAX) PR PRN (06:00)
[2022-11-07] MEDS ORDERED: ALPRAZolam 0.5 MG (XANAX) TAB PO PRN (06:00)
[2022-11-07] MEDS ORDERED: polyethylene glycoL POWDER 17 GM (MIRALAX) PACK PO PRN (06:00)
[2022-11-07] MEDS ORDERED: diphenhydrAMINE 25 MG TAB (BENADRYL) PO PRN (06:00)
[2022-11-07] MEDS ORDERED: morphine INJ 4 MG/ML 1 ML (VIAL/SYRINGE) IV PRN (06:00)
[2022-11-07] MEDS ORDERED: CALCIUM CARBONATE 500 MG (TUMS) TAB.CHEW PO PRN (06:00)
[2022-11-07] MEDS ORDERED: ONDANSETRON 4 MG/2 ML (SDV) Z0FRAN IV PRN (06:00)
[2022-11-07] MEDS ORDERED: ONDANSETRON 4 MG (ZOFRAN) ORAL DISSOLVE TAB PO PRN (06:00)
[2022-11-07] MEDS ORDERED: diphenhydrAMINE 50 MG/ML INJ (BENADRYL) IVP PRN (06:00)
--- NOTE | 2022-11-07 06:07 | History & Physical ---
History of Present Illness HPI/Chief Complaint CC: Chest pain in known CAD patient with h/o stents HPI: This is a 77yoWF clinic patient of Dr Aric Byrnes who has a h/o CAD previous stents and managed by Dr Hannah who presents to the ER with chest pain referred straight into her back. She was admitted and monitored closely on Tely and troponins and EKG's have all been wnl. She just completed the Lexiscan and Dr Hannah will read that and decide on DC or cath. She does have a cough and I ordered COVID and Flu swab upon arrival back to her room and noted Flu was po sitive for Flu A. 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 Patients Allergies have been reviewed. Allergies Allergies Coded Allergies ciprofloxacin (Verified Allergy, Severe, 10/03/13) gluten (Unverified Allergy, Severe, 03/23/15) Past Htgjnlb-Kngwok-Rkzvqf Hx Past Med/Social Hx: Reviewed Nursing Past Med/Soc Hx, Reviewed and Corrections made Patient Social History Marrital Status: single Employed/Student: retired Alcohol Use: Denies Use Smoking Status: Never a Smoker Recent Hopitalizations: Yes Immunizations Up To Date Tetanus Booster (TDap): Unknown Pediatric: No Date of Pneumonia Vaccine: Jun 17, 2012 Date of Influenza Vaccine: Aug 17, 2013 Seasonal Allergies Seasonal Allergies: No Past Medical History Surgeries: Adenoidectomy, Bowel Surgery, CABG, Coronary Stent, Eye Surgery, Gallbladder, Orthopedic, Tonsillectomy, Tubal Ligation Cardiac: Coronary Artery Disease, Deep Vein Thrombosis, High Cholesterol, Hypertension Neurological: Multiple Sclerosis Reproductive: No Sexually Transmitted Disease: No HIV/AIDS: No Female Reproductive Disorders: Denies Menopausal Genitourinary: UTI-Chronic Gastrointestinal: Crohns Disease Musculoskeletal: Arthritis Endocrine: Hypothyroidsim HEENT: Cataract Loss of Vision: Bilateral Hearing Impairment: Denies Cancer: Skin Did You Recieve Any Treatments: Yes What Type of Treatment Did You: Surgical Intervention Psychosocial: Anxiety, Depression History of Blood Disorders: No Adverse Reaction to Blood Jane: No (HAS HAD BLOOD WITH NO REACTION) Family History Cancer 03 MOTHER (PANCREATIC CA) Family history: Asthma 09 BROTHER (ASTHMA) Family history: Cardiovascular disease 03 FATHER ([place]) Family history: Hypertension 09 BROTHER 09 BROTHER Family history: Thyroid disorder 09 BROTHER Heart disease 03 FATHER Hypercholesterolemia 09 BROTHER Myocardial infarction 03 FATHER PAST SURGICAL HISTORY: -EGD'S AND COLONOSCOPIES--MOST RECENT ONE 09/09/[address] KABA CARDIAC CATH 07/18/[address] HANNAH: CONCLUSION: 1. 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 Attempt for intervention failed to cross the lesion with a balloon in the mid right coronary artery after using multiple guides. Procedure was aborted and arrangement for evaluation at a tertiary care center 3. Normal left ventricular end-diastolic pressure DISCUSSION AND RECOMMENDATION: Patient was started on aspirin and Plavix and will arrange for evaluation for tertiary care center Review of Systems Constitutional: see HPI, malaise, weakness Respiratory: cough Cardiovascular: chest pain Physical Exam Physical Exam Vital Signs Vital Signs - First Documented 11/07/22 11/07/22 03:18 08:18 O2 Flow Rate 2.00 FiO2 21 Capillary Refill : Less Than 3 Seconds Height, Weight, BMI Height: 5'1.00" Weight: 161lbs. 0.0oz. 73.084927lf; 29.97 BMI Method:Stated General Appearance: No Apparent Distress, WD/WN, Other (VERY TALKATIVE, LAUGHING AND JOKING AT TIMES. DOES NOT APPEAR ILL OR TO BE IN ANY DISCOMFORT OR DISTRESS. 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 Assessment/Plan Admission Diagnosis Assessment: Chest pain suspicious for ACS s/p Lexiscan without evidence of reversible ischemia Known CAD previous stents Acute flu A swabbed after Lexiscan place don Tamiflu h/o DVT Plan: Tamiflu Risk stratification per Dr Hannah Admission Status: Observation Diagnosis/Problems Diagnosis/Problems (1) Chest pain Clinical Quality Measures AMI/AHF: ASA po Prior to arrival: Yes (324 ASA PO & NITRO PASTE) SHIKHA PASTRANA DO Nov 07, 2022 06:07
[2022-11-07] MEDS ORDERED: ENOXAPARIN 80 MG/0.8 ML (LOVENOX) SYR SC SCH ×2 (06:15→18:00)
[2022-11-07 06:35] LABS: TRIGLYCERIDES 65 MG/DL (<150); VLDL CHOLESTEROL 13 MG/DL (5-40)
[2022-11-07 06:40] LABS: CHOLESTEROL 125 MG/DL (< 200)
[2022-11-07 06:41] LABS: HDL CHOLESTEROL 37 MG/DL (40-60)
--- NOTE | 2022-11-07 08:13 | Diagnostic Imaging Report ---
EXAMINATION: Chest 1 view HISTORY: Chest pain COMPARISON: 07/18/2021 FINDINGS: Heart size and pulmonary vasculature are normal. The lungs are clear without consolidation, pleural effusion, or pneumothorax. The osseous structures are intact. IMPRESSION: 1. No acute radiographic abnormality in the chest. Dictated by: Dictated on workstation # [id number]
[2022-11-07] MEDS ORDERED: REGADENOSON 0.4 MG/5 ML SYR (LEXISCAN) IV ONE ×2 (08:30→10:23)
[2022-11-07] MEDS ORDERED: RT-ALBUTEROL SULF 2.5 MG/3 ML PRE-MIX VIAL INH PRN (08:30)
[2022-11-07] MEDS ORDERED: ASPIRIN 81 MG CHEW (CHILDREN'S ASA) PO SCH (09:00)
[2022-11-07] MEDS ORDERED: SENNOSIDES 8.6 MG (SENOKOT) TAB PO SCH (09:00)
[2022-11-07] MEDS ORDERED: DOCUSATE SODIUM 100 MG (COLACE) CAP PO SCH (09:00)
[2022-11-07] MEDS: CATHETER FLUSH 10 ML SYR IVP PRN ×2 (09:02→10:33)
--- NOTE | 2022-11-07 10:50 | Consultation-Cardiology ---
HPI-Cardiology Cardiology Consultation Date of Consultation 11/07/22 Date of Admission Time Seen by Provider: 10:48 Indication: Chest pain HPI 77-year-old lady with history of coronary artery disease, hypertension hyperlipidemia, had an episode of significant chest pain in the retrosternal area radiating to the back associated with shortness of breath reporting pain on movement and breathing. Came into the emergency room and she was admitted. On my evaluation she was feeling better, denied any active chest pain. No shortness of breath or palpitation. Home Medications & Allergies Allergies: Coded Allergies: ciprofloxacin (Verified Allergy, Severe, 10/03/13) gluten (Unverified Allergy, Severe, 03/23/15) Home Medication List Reviewed: Yes [id number]-Yefoyu Hx Patient Social History Marital Status: Smoking Status: Never a Smoker Recent Hopitalizations: Yes Have you traveled recently?: No Alcohol Use?: No Immunizations Up To Date Tetanus Booster (TDap): Unknown Date of Pneumonia Vaccine: Jun 17, 2012 Date of Influenza Vaccine: Aug 17, 2013 Past Medical History Discussed below Family Medical History Family History: Cancer 03 MOTHER (PANCREATIC CA) Family history: Asthma 09 BROTHER (ASTHMA) Family history: Cardiovascular disease 03 FATHER (SD) Family history: Hypertension 09 BROTHER 09 BROTHER Family history: Thyroid disorder 09 BROTHER Heart disease 03 FATHER Hypercholesterolemia 09 BROTHER Myocardial infarction 03 FATHER Review of Systems-General Review of Systems Constitutional: no symptoms reported; No diaphoresis, No dizziness EENTM: see HPI, no symptoms reported Respiratory: see HPI; No cough; dyspnea on exertion; No hemoptysis, No orthopnea, No phlegm; short of breath; No stridor, No wheezing, No other Cardiovascular: see HPI, chest pain; No edema, No Hx of Intervention, No palpitations, No syncope, No vascular heart diseas, No other Gastrointestinal: no symptoms reported, see HPI Genitourinary: no symptoms reported, see HPI Musculoskeletal: see HPI, back pain Skin: no symptoms reported Psychiatric/Neurological: No Symptoms Reported Reviewed Test Results Reviewed Test Results Lab Laboratory Tests Test 11/07/22 03:30 Range/Units White Blood Count 6.5 4.3-11.0 10^3/uL Red Blood Count 3.74 L 3.80-5.11 10^6/uL Hemoglobin 11.9 11.5-16.0 g/dL Hematocrit 35 35-52 % Mean Corpuscular Volume 94 80-99 fL Mean Corpuscular Hemoglobin 32 25-34 pg Mean Corpuscular Hemoglobin Concent 34 32-36 g/dL Red Cell Distribution Width 11.8 10.0-14.5 % Platelet Count 237 130-400 10^3/uL Mean Platelet Volume 10.6 9.0-12.2 fL Immature Granulocyte % (Auto) 0 % Neutrophils (%) (Auto) 71 42-75 % Lymphocytes (%) (Auto) 13 12-44 % Monocytes (%) (Auto) 10 0-12 % Eosinophils (%) (Auto) 5 0-10 % Basophils (%) (Auto) 1 0-10 % Neutrophils # (Auto) 4.7 1.8-7.8 10^3/uL Lymphocytes # (Auto) 0.8 L 1.0-4.0 10^3/uL Monocytes # (Auto) 0.7 0.0-1.0 10^3/uL Eosinophils # (Auto) 0.3 0.0-0.3 10^3/uL Basophils # (Auto) 0.1 0.0-0.1 10^3/uL Immature Granulocyte # (Auto) 0.0 0.0-0.1 10^3/uL Prothrombin Time 13.4 12.2-14.7 SEC INR Comment 1.0 0.8-1.4 Activated Partial Thromboplast Time 28 24-35 SEC D-Dimer 0.88 H 0.00-0.49 UG/ML Sodium Level 140 135-145 MMOL/L Potassium Level 4.0 3.6-5.0 MMOL/L Chloride Level 110 H 98-107 MMOL/L Carbon Dioxide Level 18 L 21-32 MMOL/L Anion Gap 12 5-14 MMOL/L Blood Urea Nitrogen 19 H 7-18 MG/DL Creatinine 1.05 0.60-1.30 MG/DL Estimat Glomerular Filtration Rate 55 BUN/Creatinine Ratio 18 Glucose Level 100 70-105 MG/DL Calcium Level 9.7 8.5-10.1 MG/DL Corrected Calcium 9.8 8.5-10.1 MG/DL Magnesium Level 2.0 1.6-2.4 MG/DL Total Bilirubin 0.4 0.1-1.0 MG/DL Aspartate Amino Transf (AST/SGOT) 17 5-34 U/L Alanine Aminotransferase (ALT/SGPT) 14 0-55 U/L Alkaline Phosphatase 104 40-136 U/L Total Creatine Kinase 47 29-168 U/L Creatine Kinase MB 1.3 <6.6 NG/ML Myoglobin 66.6 10.0-92.0 NG/ML Troponin I < 0.028 <0.028 NG/ML B-Type Natriuretic Peptide 179.0 H <100.0 PG/ML Total Protein 6.7 6.4-8.2 GM/DL Albumin 3.9 3.2-4.5 GM/DL Triglycerides Level 65 <150 MG/DL Cholesterol Level 125 < 200 MG/DL LDL Cholesterol Direct 73 1-129 MG/DL VLDL Cholesterol 13 5-40 MG/DL HDL Cholesterol 37 L 40-60 MG/DL Amylase Level 74 25-125 U/L Lipase 45 8-78 U/L Physical Exam Physical Exam Vital Signs Vital Signs - First Documented 11/07/22 11/07/22 03:18 08:18 O2 Flow Rate 2.00 FiO2 21 Capillary Refill : Less Than 3 Seconds Height, Weight, BMI Height: 5'1.00" Weight: 161lbs. 0.0oz. 73.506158yn; 29.97 BMI Method:Stated General Appearance: No Apparent Distress, WD/WN, Other (VERY TALKATIVE, LAUGHING AND JOKING AT TIMES. DOES NOT APPEAR ILL OR TO BE IN ANY DISCOMFORT OR DISTRESS. ) Eyes: Bilateral Eye Normal Inspection, Bilateral Eye PERRL, Bilateral Eye EOMI HEENT: PERRL/EOMI, TMs Normal, Normal ENT Inspection, Pharynx Normal, Moist Mucous Membranes Neck: Normal Inspection; No JVD Respiratory: Chest Non Tender, Normal Breath Sounds, No Accessory Muscle Use, No Respiratory Distress Cardiovascular: Regular Rate, Rhythm, No Edema, No JVD, No Murmur, Normal Peripheral Pulses Gastrointestinal: Normal Bowel Sounds, No Organomegaly, No Pulsatile Mass, Non Tender, Soft Back: Normal Inspection, No CVA Tenderness, No Vertebral Tenderness Extremity: Normal Capillary Refill, Normal Inspection, Normal Range of Motion, Non Tender, No Calf Tenderness, No Pedal Edema Neurologic/Psychiatric: Alert, Oriented x3, No Motor/Sensory Deficits, Normal Mood/Affect, 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 Planning to evaluate stress test today. Coronary artery disease, Cardiac catheterization was done on May 05, 2015 showing heavily calcified LAD system and right coronary artery system with 50-60 percent stenosis of the proximal LAD, 50 percent stenosis of the midright coronary artery, moderate disease nonobstructive disease with normal left ventricular size and function. LHC done after abnormal stress test on 07/18/21 showing multivessel disease with severe stenosis in the mid RCA and severe stenosis at the mid LAD. Attempt for intervention failed to cross the lesion with balloon in the mid RCA after using multiple guides. Procedure was aborted and referred to Dr. Garcia at [place]. LHC done 08/01/[address] Garcia with LAD stenting and RCA rotablator and red nting on 08/01/21. 2D echo was done on March 23, 2021 showing normal LV size with EF 55 to 65%, grade 1 diastolic dysfunction, mild mitral regurgitation, PA pressure 35 to 40 mmHg. Easy bruising while on ASA and Plavix, currently on aspirin 81 mg daily Hypertension, restart home medication monitor blood pressure Hyperlipidemia, lipid profile was done on February 11, 2022 showing total cholesterol 153, HDL 47, triglycerides 67, LDL 93. Reports intolerance to high dose statin, intolerant to Crestor and Lipitor with severe myalgias. Continue to monitor History of thyroidectomy in March [address] Roca, maintained on thyroid replacement therapy. Followed and managed by primary care physician History of DVT, [place] filter placed in 2005 after having a pneumonia. History of venous insufficiency, had extensive workup done in the past with Dr. Knight Obesity, BMI is 30, we discussed weight loss and exercise. Bronchial asthma, followed and managed by primary care physician History of Crohn's History of multiple surgeries with T & A, cholecystectomy, cataract surgery Strong family history of heart disease Mild bilateral carotid stenosis, ultrasound was done in June 2021, I will evaluate US Clinical Quality Measures AMI/AHF: ASA po Prior to arrival: Yes (324 ASA PO & NITRO PASTE) MERYL JOSEPH MD Nov 07, 2022 10:50
--- NOTE | 2022-11-07 11:49 | Cardiology Stress Test Report ---
Stress Test Report Date of Procedure/Referring: Date of Procedure: Nov 07, 2022 PCP Aric Bynres MD Admitting Physician Admitting Physician: Shikha Farris DO Attending Physician: Shikha Farris DO Indications: CP Baseline Heart Rate: 71 Baseline Blood Pressure: Blood Pressure Systolic: 140 Blood Pressure Diastolic: 81 Baseline Vitals Vital Signs Date Time Temp Pulse Resp B/P (MAP) Pulse Ox O2 Delivery O2 Flow Rate FiO2 11/07/22 03:11 36.0 70 16 194/111 (138) 97 Room Air 11/07/22 03:18 2.00 11/07/22 08:18 21 Baseline EKG: Baseline EKG: NSR Summary After explaining the procedure to the patient, she signed a consent and then brought to the stress nuclear laboratory. Patient received 0.4 mg Lexiscan for stress test, ECG, heart rate and blood pressure were monitored continuously. Resting and stress dose of radio tracer were injected, imaging was acquired and reviewed in short axis, horizontal long axis and vertical long axis views. TID: 1.16 SSS: 5 SDS: 1 EF: 76 1. Patient tolerated Lexiscan well 2. Breast attenuation with typical female pattern. No significant ischemia or infarction on SPECT images 3. Normal left ventricular size, ejection fraction 76% MERYL JOSEPH MD Nov 07, 2022 11:49
[2022-11-07] MEDS ORDERED: OSLT75C PO ×2 (13:07→16:23)
[2022-11-07] MEDS ORDERED: NITR0.4T42 SL (13:07)
--- NOTE | 2022-11-07 13:08 | Discharge Summary ---
Diagnosis/Chief Complaint Date of Admission Nov 07, 2022 at 04:36 Date of Discharge Discharge Date: Nov 07, 2022 Discharge Diagnosis Assessment: Chest pain suspicious for ACS s/p Lexiscan without evidence of reversible ischemia Known CAD previous stents Acute flu A swabbed after Lexiscan place don Tamiflu h/o DVT Discharge Summary Discharge Physical Examination Allergies: Coded Allergies: ciprofloxacin (Verified Allergy, Severe, 10/03/13) gluten (Unverified Allergy, Severe, 03/23/15) Vitals & I&Os Vital Signs Date Time Temp Pulse Resp B/P (MAP) Pulse Ox O2 Delivery O2 Flow Rate FiO2 11/07/22 14:58 37.2 70 17 140/81 93 Room Air 2.00 11/07/22 08:18 21 General Appearance: Alert, Oriented X3, Cooperative HEENT: PERRLA Respiratory: Clear to Auscultation Cardiovascular: Regular Rate Psych/Mental Status: Mental Status NL Hospital Course Was the Problem List Reviewed?: Yes see above Labs (last 24 hrs) Laboratory Tests 11/07/22 03:30: White Blood Count 6.5, Red Blood Count 3.74L, Hemoglobin 11.9, Hematocrit 35, Mean Corpuscular Volume 94, Mean Corpuscular Hemoglobin 32, Mean Corpuscular Hemoglobin Concent 34, Red Cell Distribution Width 11.8, Platelet Count 237, Mean Platelet Volume 10.6, Immature Granulocyte % (Auto) 0, Neutrophils (%) (Auto) 71, Lymphocytes (%) (Auto) 13, Monocytes (%) (Auto) 10, Eosinophils (%) (Auto) 5, Basophils (%) (Auto) 1, Neutrophils # (Auto) 4.7, Lymphocytes # (Auto) 0.8L, Monocytes # (Auto) 0.7, Eosinophils # (Auto) 0.3, Basophils # (Auto) 0.1, Immature Granulocyte # (Auto) 0.0, Prothrombin Time 13.4, INR Comment 1.0, Activated Partial Thromboplast Time 28, D-Dimer 0.88H, Sodium Level 140, Potassium Level 4.0, Chloride Level 110H, Carbon Dioxide Level 18L, Anion Gap 12, Blood Urea Nitrogen 19H, Creatinine 1.05, Estimat Glomerular Filtration Rate 55, BUN/Creatinine Ratio 18, Glucose Level 100, Calcium Level 9.7, Corrected Calcium 9.8, Magnesium Level 2.0, Total Bilirubin 0.4, Aspartate Amino Transf (AST/SGOT) 17, Alanine Aminotransferase (ALT/SGPT) 14, Alkaline Phosphatase 104, Total Creatine Kinase 47, Creatine Kinase MB 1.3, Myoglobin 66.6, Troponin I < 0.028, B-Type Natriuretic Peptide 179.0H, Total Protein 6.7, Albumin 3.9, Triglycerides Level 65, Cholesterol Level 125, LDL Cholesterol Direct 73, VLDL Cholesterol 13, HDL Cholesterol 37L, Amylase Level 74, Lipase 45 11/07/22 11:35: Influenza Type A (RT-PCR) DetectedH, Influenza Type B (RT-PCR) Not Detected, SARS-CoV-2 RNA (RT-PCR) Not Detected 11/07/22 12:05: Troponin I < 0.028 Pending Labs Laboratory Tests 11/07/22 03:30: White Blood Count 6.5, Red Blood Count 3.74, Hemoglobin 11.9, Hematocrit 35, Mean Corpuscular Volume 94, Mean Corpuscular Hemoglobin 32, Mean Corpuscular Hemoglobin Concent 34, Red Cell Distribution Width 11.8, Platelet Count 237, Mean Platelet Volume 10.6, Immature Granulocyte % (Auto) 0, Neutrophils (%) (Auto) 71, Lymphocytes (%) (Auto) 13, Monocytes (%) (Auto) 10, Eosinophils (%) (Auto) 5, Basophils (%) (Auto) 1, Neutrophils # (Auto) 4.7, Lymphocytes # (Auto) 0.8, Monocytes # (Auto) 0.7, Eosinophils # (Auto) 0.3, Basophils # (Auto) 0.1, Immature Granulocyte # (Auto) 0.0, Prothrombin Time 13.4, INR Comment 1.0, Activated Partial Thromboplast Time 28, D-Dimer 0.88, Sodium Level 140, Potassium Level 4.0, Chloride Level 110, Carbon Dioxide Level 18, Anion Gap 12, Blood Urea Nitrogen 19, Creatinine 1.05, Estimat Glomerular Filtration Rate 55, BUN/Creatinine Ratio 18, Glucose Level 100, Calcium Level 9.7, Corrected Calcium 9.8, Magnesium Level 2.0, Total Bilirubin 0.4, Aspartate Amino Transf (AST/SGOT) 17, Alanine Aminotransferase (ALT/SGPT) 14, Alkaline Phosphatase 104, Total Creatine Kinase 47, Creatine Kinase MB 1.3, Myoglobin 66.6, Troponin I < 0.028, B-Type Natriuretic Peptide 179.0, Total Protein 6.7, Albumin 3.9, Triglycerides Level 65, Cholesterol Level 125, LDL Cholesterol Direct 73, VLDL Cholesterol 13, HDL Cholesterol 37, Amylase Level 74, Lipase 45 11/07/22 11:35: Influenza Type A (RT-PCR) Detected, Influenza Type B (RT-PCR) Not Detected, SARS-CoV-2 RNA (RT-PCR) Not Detected 11/07/22 12:05: Troponin I < 0.028 Discharge Home Medications: Active Scripts Active Tamiflu (Oseltamivir Phosphate) 75 Mg Cap 75 Mg PO BID Nitroglycerin 0.4 Mg Tab.subl 0 Mg SL NEEDED PRN place under tongue every 5 minutes prn chest pain Aspirin EC (Aspirin) 81 Mg Tablet.dr 81 Mg PO DAILY Clopidogrel (Clopidogrel Bisulfate) 75 Mg Tablet 75 Mg PO DAILY Reported Pravastatin Sodium 40 Mg Tablet 40 Mg PO HS Myrbetriq (Mirabegron) 50 Mg Tab.er.24h 50 Mg PO DAILY Losartan Potassium 100 Mg Tablet 100 Mg PO DAILY Liothyronine Sodium 5 Mcg Tablet 5 Mcg PO DAILY Levothyroxine (Levothyroxine Sodium) 75 Mcg Capsule 75 Mcg PO DAILY Gemfibrozil 600 Mg Tablet 600 Mg PO BID Neurontin (Gabapentin) 300 Mg Capsule 300 Mg PO HS Carmen Allergy (Fexofenadine HCl) 180 Mg Tablet 180 Mg PO DAILY One Daily Complete (Multivitamin with Minerals) 1 Each Tablet 1 Each PO DAILY Vitamin B-12 (Cyanocobalamin (Vitamin B-12)) 2,000 Mcg Tablet 2,000 Mcg PO DAILY Vitamin D3 (Cholecalciferol (Vitamin D3)) 50 Mcg Capsule 50 Mcg PO DAILY Calcium (Calcium Carbonate) 600 Mg Tablet 600 Mg PO DAILY Breo Ellipta 100-25 Mcg INH (Fluticasone/Vilanterol) 1 Each Blst.w.dev 1 Each IH DAILY Instructions to patient/family Please see electronic discharge instructions given to patient. Clinical Quality Measures AMI/AHF: ASA po Prior to arrival: Yes (324 ASA PO & NITRO PASTE) NIKITA PASTRANA DO Nov 07, 2022 13:08
[2022-11-07] MEDS ORDERED: RELABEL FOR HOME USE MC SCH ×3 (13:15→15:45)
[2022-11-07] MEDS ORDERED: OSELTAMIVIR 75 MG (TAMIFLU) CAPSULE PO SCH (13:15)
== END 2022-11-08 13:06 | disposition home or self-care (01) ==
LOC: EDUNIT# 03:11 → ER 03:12 → CSD 04:36 → UNDOADMOB 04:36 → CSD 04:36 → INTOOBSV 04:36 → CSD 05:39 → UNDODISOB 15:18
PROVIDERS: ADMIT Internal Medicine; ATTEND Internal Medicine
DX: R07.89 Other chest pain (principal); I25.10 Atherosclerotic heart disease of native coronary artery without angina pectoris; I10 Essential (primary) hypertension; E78.5 Hyperlipidemia, unspecified; J10.1 Influenza due to other identified influenza virus with other respiratory manifestations; E66.9 Obesity, unspecified; J45.909 Unspecified asthma, uncomplicated; I65.23 Occlusion and stenosis of bilateral carotid arteries; K50.90 Crohn's disease, unspecified, without complications; Z68.30 Body mass index [BMI] 30.0-30.9, adult; Z90.89 Acquired absence of other organs; Z90.49 Acquired absence of other specified parts of digestive tract; Z86.718 Personal history of other venous thrombosis and embolism
CPT/HCPCS: 71045; 78452; 80053; 80061; 82150; 82550; 82553; 83690; 83735; 83874; 83880; 84484; 85025; 85379; 85610; 85730; 87636; 93005; 93017; 93041; 99284; A9502; C8929; G0378; 36415; 93306

== ENCOUNTER 2022-12-13 07:04 | Outpatient (RCR) | payer MEDICARE ==
[~2022-12-13 07:04] MED LIST changes: +NITR0.4T42 SL; +OSLT75C PO
== END 2022-12-16 | disposition home or self-care (01) ==
LOC: CR3 07:04
PROVIDERS: ATTEND Internal Medicine Cardiovascular Disease
DX: Z29.8 Encounter for other specified prophylactic measures (principal)

== ENCOUNTER 2023-02-10 06:50 | Outpatient (RCR) | payer MEDICARE, OTHER | END 2023-02-13 | disposition home or self-care (01) | LOC: CR3 06:50 | PROVIDERS: ATTEND Internal Medicine Cardiovascular Disease | DX: Z29.8 Encounter for other specified prophylactic measures (principal) ==

== ENCOUNTER 2023-02-14 07:08 | Outpatient (RCR) | payer MEDICARE ==
[2023-03-05] MEDS ORDERED: GLUC1CAP37 PO (09:45)
[2023-03-05] MEDS ORDERED: ALBU0.63 IH (09:45)
[2023-03-05] MEDS ORDERED: TRIA10.8 NS (09:45)
[2023-03-12] MEDS ORDERED: PANT40TA2 PO (11:47)
== END 2023-03-16 | disposition home or self-care (01) ==
LOC: CR3 07:08
PROVIDERS: ATTEND Internal Medicine Cardiovascular Disease
DX: Z29.8 Encounter for other specified prophylactic measures (principal)

== ENCOUNTER 2023-03-05 05:53 | Outpatient (CLI) | payer MEDICARE ==
[~2023-03-05] VITALS: Ht 154.9 cm; Wt 67.1 kg
[2023-03-05] MEDS ORDERED: ALBU0.63 IH (09:45)
[2023-03-05] MEDS ORDERED: GLUC1CAP37 PO (09:45)
[2023-03-05] MEDS ORDERED: TRIA10.8 NS (09:45)
== END 2023-03-05 09:53 | disposition home or self-care (01) ==
LOC: PREOP 05:53
PROVIDERS: ATTEND Surgery
DX: Z01.818 Encounter for other preprocedural examination (principal)

== ENCOUNTER 2023-03-06 09:45 | Outpatient (RCR) | payer MEDICARE, OTHER ==
[~2023-03-06 09:45] MED LIST changes: +ALBU0.63 IH; +GLUC1CAP37 PO
[2023-03-12] MEDS ORDERED: PANT40TA2 PO (11:47)
== END 2023-03-16 | disposition home or self-care (01) ==
PROVIDERS: ATTEND Physician Assistant
DX: M54.6 Pain in thoracic spine (principal); M54.50 Low back pain, unspecified; G89.29 Other chronic pain; I10 Essential (primary) hypertension; R53.1 Weakness

== ENCOUNTER 2023-03-12 11:20 | Day surgery (SDC) | payer MEDICARE ==
[~2023-03-12] VITALS: Ht 154.9 cm; Wt 67.1 kg
[~2023-03-12 11:20] MED LIST changes: +LACTATED RINGERS 1,000 ML IV STA
[2023-03-12] MEDS ORDERED: LIDOCAINE JELLY 2% 6 ML SYRINGE MM PRN (11:30)
[2023-03-12] MEDS ORDERED: HURRICAINE EXT TUBE (BENZOCAINE) XX PRN (11:30)
[2023-03-12 11:35] VITALS: BP 120/84
[2023-03-12] MEDS ORDERED: ONDANSETRON 4 MG/2 ML (SDV) Z0FRAN IVP PRN (11:45)
[2023-03-12] MEDS ORDERED: ONDANSETRON 4 MG (ZOFRAN) ORAL DISSOLVE TAB PO PRN (11:45)
--- NOTE | 2023-03-12 11:45 | Progress Note-Pre Operative ---
Pre-Operative Progress Note Date of Available H&P: Mar 12, 2023 Date H&P Reviewed: Mar 12, 2023 Time H&P Reviewed: 11:30 History & Physical: No changes noted Pre-Operative Diagnosis: GERD, HH RANGEL ULRICH MD Mar 12, 2023 11:45
[2023-03-12] MEDS ORDERED: PANT40TA2 PO (11:47)
--- NOTE | 2023-03-12 11:47 | Discharge Inst-Surgical ---
D/C Lap Instructions-MOJGAN Follow Up Activity as tolerated High Fiber Diet 25g or more per day Avoid Alcohol, Caffeine, Spicy [place] and Acid foods. Drink 64 fluid oz or more of fluids per day. Symptoms to Report: Fever over 101 degree F, Nausea/Vomiting If any problems/questions: Contact your physician or go to Emergency Room RANGEL ULRICH MD Mar 12, 2023 11:47
[2023-03-12] MEDS ORDERED: MIDAZOLAM 2 MG/2 ML (VERSED) VIAL ONE (12:53)
[2023-03-12] MEDS ORDERED: PROPOFOL INJECTION 50 ML IV ONE ×2 (12:53→13:42)
[2023-03-12 13:45] VITALS: BP 125/60
[2023-03-12 13:50] VITALS: BP 134/87
--- NOTE | 2023-03-12 14:03 | Progress Note-Post Operative ---
Post-Operative Progess Note Surgeon (s)/Hide Mill Man (s) Surgeon RANGEL ULRIHC MD [place] Man: none Pre-Operative Diagnosis GERD, HH Post-Operative Diagnosis reflux esophagitis(grade B-C), mild distal esoph stricture, small HH(2cm), moderate-severe gastritis, pyloric stricture, large plyloric ulcer. Procedure & Operative Findings Date of Procedure 03/12/23 Procedure Performed/Findings EGD with bx and balloon dilatation distal esophagus and pylorus. Anesthesia Type mac Estimated Blood Loss Estimated blood loss (mL): minimal Specimens/Packing Specimens Removed pyloric ulcer, antrum, ge jxn RANGEL ULRICH MD Mar 12, 2023 14:03
[2023-03-12 14:34] VITALS: BP 134/87
--- NOTE | 2023-03-12 14:56 | Anesthesia-General Post-Op ---
MAC Patient Condition Mental Status/LOC: Same as Preop Cardiovascular: Satisfactory Nausea/Vomiting: Absent Respiratory: Satisfactory Pain: Controlled Complications: Absent Post Op Complications Complications None Follow Up Care/Instructions Patient Instructions None needed. Anesthesiology Discharge Order Discharge Order Patient is doing well, no complaints, stable vital signs, no apparent adverse anesthesia problems. No complications reported per nursing. SAGRARIO ALVARADO CRNA Mar 12, 2023 14:56
--- NOTE | 2023-03-12 22:00 | OPERATIVE REPORT ---
DATE OF SERVICE: 03/12/2023 ATTENDING PRIMARY CARE PHYSICIAN: Dr. Aric Byrnes. PREOPERATIVE DIAGNOSES: Chest pain, epigastric pain, gastroesophageal reflux. POSTOPERATIVE DIAGNOSES: Reflux esophagitis between [place] grade B and C with a mild distal esophageal stricture. Small hiatal hernia approximately 2 cm in size, moderate to severe gastritis, pyloric stricture with a large pyloric ulcer. PROCEDURE: EGD with biopsy and balloon dilatation of the pylorus and gastroesophageal junction. SURGEON: Vicky Mejia MD ANESTHESIA: Monitored anesthesia care. ESTIMATED BLOOD LOSS: Minimal. FINDINGS: Reflux esophagitis between [place] grade B and C with a mild distal esophageal stricture. Small hiatal hernia approximately 2 cm in size, moderate to severe gastritis, pyloric stricture with a large pyloric ulcer. DISPOSITION: The patient tolerated the procedure well. INDICATIONS: The patient is a 77-year-old female who was referred over to us for what she describes as epigastric pressure sensation, which would also radiate towards her chest. She was seen by her business development manager and underwent a workup, which was negative for any acute cardiac issues. She reports that she has developed issues with difficulty swallowing with solids and some liquids as well. She does not report anynausea or vomiting as well as no hematemesis, no coffee-ground emesis. DESCRIPTION OF PROCEDURE: The patient was brought to the endoscopy suite and laid in the left lateral decubitus position. After adequate IV pain and sedative medications and monitored anesthesia care, the mouthpiece was applied. The endoscope was placed in the mouth, visualizing the pharynx and hypopharyngeal region. Vocal cords, epiglottis and vallecula identified and appeared to be normal. Endoscope was then gently intubated in the esophageal opening and esophagus insufflated. The endoscope was then advanced into the first, second, third portions of esophagus . At the level of the GE junction, a reflux esophagitis, [place] between grade B and C identified as well as a mild distal esophageal stricture. A biopsy was taken with forceps with visualization of good hemostasis. The endoscope was then advanced into the stomach. The endoscope retroflexed, visualizing a small hiatal hernia approximately 2 cm in size. There was moderate to severe gastritis and there was also a pyloric stenosis identified. A biopsy was taken of the antrum to rule out H. pylori with visualization of good hemostasis. With gentle pressure, the endoscope was able to pass through the pyloric stricture where a large pyloric ulcer was identified. This was definitely greater than 1 cm in size with an overlying fibrin clot and no active bleeding. Biopsies of the rim of the ulcer were then taken using forceps with visualization of good hemostasis. The endoscope was then advanced into the first and second portion of the duodenum, which appeared normal with no other ulcerations identified. The balloon was then placed into the duodenum and pulled back to the area of the pyloric stricture. We then proceeded with dilatation in a stepwise graded fashion from 2, 3 and then eventually 4 atmospheres of pressure or 19 mm in luminal diameter with moderate resistance and left this in place for approximately 120 seconds. The balloon was then desufflated and removed with visualization of good hemostasis as well as no mucosal tears. We then proceeded with balloon dilatation of the distal esophageal stricture and the balloon was pulled back to the area of the distal esophagus. We then proceeded again in a graded stepwise fashion from 2 and then eventually 4 and then 5 atmospheres of pressure or approximately 19.5 mm in luminal diameter with moderate resistance and left this in place for approximately 60 seconds. The balloon was then desufflated and removed with visualization of good hemostasis as well as no mucosal tears. The endoscope was then slowly withdrawn while taking a second look and suctioning of residual air with no additional findings. The patient tolerated the procedure well. We will have her follow up in the office in 4 weeks and schedule a repeat endoscopy in approximately 6 weeks to verify healing of the ulcer as well as for graded dilatation of both the pyloric and esophageal stricture. We will also start her on Protonix 40 mg daily as well as Carafate 1 gram q.i.d. for the next 2 weeks. Job ID: [id number] DocumentID: [id number] Dictated Date: 03/12/2023 13:53:02 Automotive Engineering Technician Date: 03/12/2023 21:58:00 Dictated By: MD CARLTON WITT
== END 2023-03-12 14:34 | disposition home or self-care (01) ==
LOC: ENDO 11:20
PROVIDERS: ATTEND Surgery
DX: K21.00 Gastro-esophageal reflux disease with esophagitis, without bleeding (principal); K29.00 Acute gastritis without bleeding; K29.50 Unspecified chronic gastritis without bleeding; K22.10 Ulcer of esophagus without bleeding; K22.2 Esophageal obstruction; K44.9 Diaphragmatic hernia without obstruction or gangrene; K31.1 Adult hypertrophic pyloric stenosis; Z95.5 Presence of coronary angioplasty implant and graft

== ENCOUNTER 2023-03-20 09:20 | Outpatient (RCR) | payer MEDICARE ==
[~2023-03-20 09:20] MED LIST changes: -LACTATED RINGERS 1,000 ML IV STA; -LOSA100T57 PO; +LOSA100T58 PO; +PANT40TA2 PO
== END 2023-04-16 | disposition home or self-care (01) ==
PROVIDERS: ATTEND Physician Assistant
DX: M54.6 Pain in thoracic spine (principal); M54.50 Low back pain, unspecified; G89.29 Other chronic pain; I10 Essential (primary) hypertension; J45.909 Unspecified asthma, uncomplicated

== ENCOUNTER 2023-04-16 05:32 | Outpatient (CLI) | payer MEDICARE ==
[~2023-04-16] VITALS: Ht 154.9 cm; Wt 65.9 kg
[~2023-04-16 05:32] MED LIST changes: +LOSA100T57 PO; -LOSA100T58 PO
== END 2023-04-16 09:57 | disposition home or self-care (01) ==
LOC: PREOP 05:32
PROVIDERS: ATTEND Surgery
DX: Z01.818 Encounter for other preprocedural examination (principal)

== ENCOUNTER 2023-04-21 13:13 | Outpatient (RCR) | payer MEDICARE ==
[~2023-04-21 13:13] MED LIST changes: -LOSA100T57 PO; +LOSA100T58 PO
[2023-04-28] MEDS ORDERED: PANT40TA52 PO (13:57)
[2023-04-28] MEDS ORDERED: GEMF600T88 PO (13:57)
[2023-04-28] MEDS ORDERED: MTP25TSR PO (13:57)
[2023-04-28] MEDS ORDERED: CALC-1102 PO (13:59)
[2023-04-28] MEDS ORDERED: CALC-1049 PO (14:00)
[2023-04-28] MEDS ORDERED: ASPI-1238 PO (14:01)
[2023-04-28] MEDS ORDERED: ACET-3075 PO (14:01)
[2023-04-28] MEDS ORDERED: NAPR220T66 PO (14:01)
== END 2023-06-15 | disposition home or self-care (01) ==
LOC: CR3 13:13
PROVIDERS: ATTEND Internal Medicine Cardiovascular Disease
DX: Z29.8 Encounter for other specified prophylactic measures (principal)

== ENCOUNTER 2023-04-23 09:51 | Day surgery (SDC) | payer MEDICARE ==
[~2023-04-23] VITALS: Ht 154.9 cm; Wt 65.9 kg
--- NOTE | 2023-04-23 10:16 | Progress Note-Pre Operative ---
Pre-Operative Progress Note Date of Available H&P: Apr 23, 2023 Date H&P Reviewed: Apr 23, 2023 Time H&P Reviewed: 10:15 History & Physical: No changes noted Pre-Operative Diagnosis: hx RANGEL HONG MD Apr 23, 2023 10:16
[2023-04-23 10:17] VITALS: BP 143/82
--- NOTE | 2023-04-23 10:20 | Discharge Inst-Surgical ---
D/C Lap Instructions-KIDO New, Converted, or Re-Newed RX: RX on Chart Follow Up Appt Activity as tolerated High Fiber Diet 25g or more per day Avoid Alcohol, Caffeine, Spicy [place] and Acid foods. Drink 64 fluid oz or more of fluids per day. Symptoms to Report: Fever over 101 degree F, Nausea/Vomiting If any problems/questions: Contact your physician or go to Emergency Room RANGEL ULRICH MD Apr 23, 2023 10:20
[2023-04-23] MEDS ORDERED: LACTATED RINGERS 1,000 ML IV STA (10:23)
[2023-04-23] MEDS ORDERED: ONDANSETRON 4 MG (ZOFRAN) ORAL DISSOLVE TAB PO PRN (10:30)
[2023-04-23] MEDS ORDERED: LIDOCAINE JELLY 2% 6 ML SYRINGE MM PRN (10:30)
[2023-04-23] MEDS ORDERED: ONDANSETRON 4 MG/2 ML (SDV) Z0FRAN IVP PRN (10:30)
[2023-04-23] MEDS ORDERED: HURRICAINE EXT TUBE (BENZOCAINE) XX PRN (10:30)
[2023-04-23] MEDS ORDERED: MIDAZOLAM 2 MG/2 ML (VERSED) VIAL ONE (10:34)
[2023-04-23] MEDS ORDERED: PROPOFOL INJECTION 50 ML IV ONE (10:34)
[2023-04-23] MEDS ORDERED: LIDOCAINE JELLY 2% 6 ML SYRINGE ONE (11:00)
[2023-04-23 11:30] VITALS: BP 74/37
[2023-04-23 11:35] VITALS: BP 104/50
--- NOTE | 2023-04-23 11:57 | Progress Note-Post Operative ---
Post-Operative Progess Note Surgeon (s)/Ceiling Installer (s) Surgeon RANGEL ULRICH MD Ceiling Installer: none Pre-Operative Diagnosis hx PUD and esophageal and pyloric stricture Post-Operative Diagnosis reflux esophagitis(grade B)mild dist esoph stricture, small HH(2cm), moderate gastritis, mild pyloric stricture. Procedure & Operative Findings Date of Procedure 04/23/23 Procedure Performed/Findings EGD with bx and balloon dilatation pylorus and ge jxn. Anesthesia Type mac Estimated Blood Loss Estimated blood loss (mL): minimal Specimens/Packing Specimens Removed ge jxn, antrum RANGEL ULRICH MD Apr 23, 2023 11:57
[2023-04-23 12:15] VITALS: BP 104/50
--- NOTE | 2023-04-23 13:44 | OPERATIVE REPORT ---
DATE OF SERVICE: 04/23/2023 ATTENDING PRIMARY CARE PHYSICIAN: Dr. Brielle Cervantes. PREOPERATIVE DIAGNOSES: Dysphagia with known history of a distal esophageal stricture and pyloric stricture. POSTOPERATIVE DIAGNOSES: Reflux esophagitis, [place] grade B, mild distal esophageal stricture, small hiatal hernia, 2 cm in size, moderate gastritis, mild pyloric stricture, no ulcers. PROCEDURE: EGD with biopsy and balloon dilatation of the pylorus and gastroesophageal junction and biopsy. SURGEON: Rangel Ulrich MD ANESTHESIA: Monitored anesthesia care. ESTIMATED BLOOD LOSS: Minimal. FINDINGS: Reflux esophagitis, [place] grade B, mild distal esophageal stricture, small hiatal hernia, 2 cm in size, moderate gastritis, mild pyloric stricture, no ulcers. DISPOSITION: The patient tolerated the procedure well. INDICATIONS: The patient is a 77-year-old female who was initially referred over to us for epigastric pressure sensation with radiation towards the exam. She was seen by her crabbing machine operator and underwent a workup; however, there was no acute cardiac issues identified. She had developed worsening issues with difficulty in swallowing solids and liquids. We had done an EGD on 03/12/2023 and was found to have a stricture of the lower esophagus as well as the pylorus. There was also a large adjacent ulcer by the pylorus. Biopsies were taken, which were negative for malignancy as well as negative for H. pylori and Blackwell's esophagus. We had proceeded with balloon dilatation at that time and we were able to get the pylorus to 19 mm and the GE junction to 19.5 mm. She reports that she is doing much better. We had also treated her for esophageal candidiasis as well as for the severe gastritis with Protonix and Carafate and states that she has been doing much better. Goal is to proceed with dilatation of the pylorus and the GE junction to approximately 20 mm, so she remains asymptomatic from a standpoint of dysphagia. DESCRIPTION OF PROCEDURE: The patient was brought to the endoscopy suite and laid in the left lateral decubitus position. After adequate IV pain and sedative medications and monitored anesthesia care, the mouthpiece was applied. The endoscope was placed in the mouth, visualizing the pharynx and hypopharyngeal region. Vocal cords, epiglottis and vallecula identified and appeared to be normal. The endoscope was then gently intubated into the esophageal opening, esophagus insufflated. The endoscope was then advanced through the first, second and third portion of esophagus at the level of the GE junction, reflux esophagitis, [place] grade B identified. There was a mild distal esophageal stricture. A biopsy was taken. A biopsy was taken with forceps with visualization of good hemostasis. The endoscope was then advanced into the stomach, endoscope retroflexed visualizing again the small hiatal hernia approximately 2 cm in size. There was moderate gastritis, but nothing severe. There was no pyloric ulcer. There was a mild pyloric stricture. The endoscope was then advanced through the pylorus and the first and second portion of the duodenum, which appeared normal with no distal obstructions. A biopsy was also taken of the antrum to rule out H. pylori. The balloon was then placed into the duodenum under direct visualization and pulled back to the area of the stricture. We then proceeded with graded dilatation from 2, 4, then eventually 6 atmospheres of pressure or 20 mm in luminal diameter with moderate resistance and left this in place for 120 seconds. The balloon was then desufflated and removed with visualization of good hemostasis as well as no mucosal tears. We then desufflated the balloon and pulled the balloon back to the GE junction and again proceeded with dilatation in a graded stepwise fashion from 2, 4, then eventually 6 atmospheres of pressure or 20 mm luminal diameter and moderate resistance and left this in place for 120 seconds. The balloon was desufflated and removed with visualization of good hemostasis as well as no mucosal tears. Endoscope was then slowly withdrawn while taking a second look and suctioning of residual air with no additional findings. The patient tolerated the procedure well. We will recommend continued medical management with a small and more frequent meals, avoidance of eating at night as well as head elevation while lying supine. She also needs to avoid caffeinated beverages, spicy, greasy and acidic foods and continue to take her omeprazole 40 mg daily. If she does become symptomatic, we will have her follow up for repeat dilatation Job ID: [id number] DocumentID: [id number] Dictated Date: 04/23/2023 11:38:07 Retort Firer Date: 04/23/2023 13:42:00 Dictated By: RANGEL ULRICH MD
--- NOTE | 2023-04-23 14:06 | Anesthesia-General Post-Op ---
MAC Patient Condition Mental Status/LOC: Same as Preop Cardiovascular: Satisfactory Nausea/Vomiting: Absent Respiratory: Satisfactory Pain: Controlled Complications: Absent Post Op Complications Complications None Follow Up Care/Instructions Patient Instructions None needed. Anesthesiology Discharge Order Discharge Order Patient is doing well, no complaints, stable vital signs, no apparent adverse anesthesia problems. No complications reported per nursing. JUANCHO PURVIS CRNA Apr 23, 2023 14:06
== END 2023-04-23 12:15 | disposition home or self-care (01) ==
LOC: ENDO 09:51
PROVIDERS: ATTEND Surgery
DX: K29.50 Unspecified chronic gastritis without bleeding (principal); K22.2 Esophageal obstruction; K21.00 Gastro-esophageal reflux disease with esophagitis, without bleeding; K31.1 Adult hypertrophic pyloric stenosis; K44.9 Diaphragmatic hernia without obstruction or gangrene; Z87.11 Personal history of peptic ulcer disease

== ENCOUNTER 2023-04-25 19:20 | Inpatient (IN) | payer MEDICARE ==
[~2023-04-25] VITALS: Ht 154.9 cm; Wt 69.3 kg
[2023-04-25 19:36] LABS: BASOPHILS # (AUTO) 0.1 10^3/uL (0.0-0.1); BASOPHILS % (AUTO) 0 % (0-10); EOSINOPHILS # (AUTO) 0.1 10^3/uL (0.0-0.3); EOSINOPHILS % (AUTO) 1 % (0-10); HEMATOCRIT 40 % (35-52); HEMOGLOBIN 13.1 g/dL (11.5-16.0); LYMPHOCYTES # (AUTO) 1.2 10^3/uL (1.0-4.0); LYMPHOCYTES % (AUTO) 7 % (12-44); MEAN CORPUSCULAR HEMOGLOBIN 31 pg (25-34); MEAN CORPUSCULAR HGB CONC 33 g/dL (32-36); MEAN CORPUSCULAR VOLUME 93 fL (80-99); MEAN PLATELET VOLUME 11.9 fL (9.0-12.2); MONOCYTES # (AUTO) 0.8 10^3/uL (0.0-1.0); MONOCYTES % (AUTO) 5 % (0-12); NEUTROPHILS # (AUTO) 15.5 10^3/uL (1.8-7.8); NEUTROPHILS % (AUTO) 87 % (42-75); PLATELET COUNT 276 10^3/uL (130-400); WHITE BLOOD COUNT 17.8 10^3/uL (4.3-11.0)
[2023-04-25 19:54] LABS: INR 1.1 (0.8-1.4); PROTHROMBIN TIME PATIENT 14.8 SEC (12.2-14.7)
[2023-04-25 19:55] LABS: BAND NEUTROPHILS 14 %; EOSINOPHILS % (MANUAL) 2 %; ERYTHROCYTE SEDIMENTATION RATE 61 MM/HR (0-30); LYMPHOCYTES % (MANUAL) 5 %; MONOCYTES % (MANUAL) 4 %; NEUTROPHILS % (MANUAL) 75 %
--- NOTE | 2023-04-25 20:04 | Diagnostic Imaging Report ---
CLINICAL INDICATIONS: Patient with weakness. EXAM: Portable chest x-ray upright view. COMPARISON: Chest x-ray dated 11/07/2022. FINDINGS: There is air beneath both hemidiaphragms regions. Air-filled gastric bubble is also seen. Pneumoperitoneum cannot be completely excluded. There is elevation of both hemidiaphragms and bibasilar atelectasis or scarring. Cardiac silhouette is mildly prominent. Pulmonary vasculature is within normal limits. There are spurs involving the thoracic spine. IMPRESSION: 1.: There is air underneath both hemidiaphragm regions and pneumoperitoneum may be considered. If there is no history of surgery or reason for intra-abdominal air, CT scan abdomen and pelvis would be suggested. 2: There is mild bibasilar atelectasis or scarring. Dictated by: Dictated on workstation # [id number]
[2023-04-25 20:08] LABS: ALANINE AMINOTRANSFERASE 15 U/L (0-55); ALBUMIN 3.8 GM/DL (3.2-4.5); ALKALINE PHOSPHATASE 69 U/L (40-136); BILIRUBIN,TOTAL 0.7 MG/DL (0.1-1.0); BUN/CREATININE RATIO 26; CALCIUM 9.9 MG/DL (8.5-10.1); CARBON DIOXIDE 19 MMOL/L (21-32); CHLORIDE 104 MMOL/L (98-107); CREATINE KINASE 262 U/L (29-168); CREATININE SERUM 1.77 MG/DL (0.60-1.30); GFR ESTIMATED 29; GLUCOSE 117 MG/DL (70-105); MAGNESIUM 2.2 MG/DL (1.6-2.4); POTASSIUM 3.8 MMOL/L (3.6-5.0); SODIUM 136 MMOL/L (135-145)
[2023-04-25 20:22] LABS: CREATINE KINASE MB 2.6 NG/ML (<6.6); TSH (THYROID ANALYZER) 14.23 UIU/ML (0.35-4.94)
--- NOTE | 2023-04-25 20:24 | ED GI ---
General Chief Complaint: Abdominal/GI Problems Stated Complaint: WEAKNESS Nursing Triage Note: Pt presents via EMS from [facility] with c/o abdominal pain, decreased appetite, BM's and gas. Pt had a recent endoscopy for a possible ulcer approx 2 days ago. Pt was taken to [facility] by son for concern over cognitive issues. Source of Information: Patient History of Present Illness Date Seen by Provider: Apr 25, 2023 Time Seen by Provider: 19:22 Initial Comments PT ARRIVES VIA EMS FROM [facility] [place] Allergies and Home Medications Allergies Coded Allergies: ciprofloxacin (Verified Allergy, Severe, 10/03/13) gluten (Unverified Allergy, Severe, 03/23/15) Patient Home Medication List Albuterol Sulfate (Albuterol Sulfate) 0.63 Mg/3 Ml Vial.neb, 0.63 MG IH PRN, (Reported) Entered as Reported by: MARIO SIMEON on 03/05/23 0945 Aspirin (Aspirin EC) 81 Mg Tablet.dr, 81 MG PO DAILY Prescribed by: MERYL JOSEPH on 07/19/21 0548 Calcium Carbonate (Calcium) 600 Mg Tablet, 600 MG PO DAILY, (Reported) Entered as Reported by: GENOVEVA BAJWA on 07/18/21 0833 Cholecalciferol (Vitamin D3) (Vitamin D3) 50 Mcg Capsule, 50 MCG PO DAILY, (Reported) Entered as Reported by: GENOVEVA BAJWA on 07/18/21 08 Cyanocobalamin (Vitamin B-12) (Vitamin B-12) 2,000 Mcg Tablet, 2,000 MCG PO DAILY, (Reported) Entered as Reported by: GENOVEVA BAJWA on 07/18/21 0833 Fexofenadine HCl (Carmen Allergy) 180 Mg Tablet, 180 MG PO DAILY, (Reported) Entered as Reported by: GENOVEVA BAJWA on 07/18/21 08 Fluticasone/Vilanterol (Breo Ellipta 100-25 Mcg INH) 1 Each Blst.w.dev, 1 EACH IH DAILY, (Reported) Entered as Reported by: GENOVEVA BAJWA on 07/18/21 08 Gabapentin (Neurontin) 300 Mg Capsule, 300 MG PO HS, (Reported) Entered as Reported by: GENOVEVA BAJWA on 07/18/21 08 Gemfibrozil (Gemfibrozil) 600 Mg Tablet, 600 MG PO BID, (Reported) Entered as Reported by: GENOVEVA BAJWA on 07/18/21832 Glucosa Cuellar 2Kcl/Chondroitin Cuellar (Glucosamine & Chondroitin Cap) 500 Mg-400 Mg Capsule, 1 EACH PO DAILY, (Reported) Entered as Reported by: MARIO SIMEON on 03/05/23 0945 Levothyroxine Sodium (Levothyroxine) 75 Mcg Capsule, 75 MCG PO DAILY, (Reported) Entered as Reported by: GENOVEVA BAJWA on 07/18/21832 Liothyronine Sodium (Liothyronine Sodium) 5 Mcg Tablet, 5 MCG PO DAILY, (Reported) Entered as Reported by: GENOVEVA BAJWA on 07/18/21832 Losartan Potassium (Losartan Potassium) 100 Mg Tablet, 100 MG PO DAILY, (Reported) Entered as Reported by: GENOVEVA BAJWA on 07/18/21832 Mirabegron (Myrbetriq) 50 Mg Tab.er.24h, 50 MG PO DAILY, (Reported) Entered as Reported by: GENOVEVA BAJWA on 07/18/21832 Multivitamin with Minerals (One Daily Complete) 1 Each Tablet, 1 EACH PO DAILY, (Reported) Entered as Reported by: GEONVEVA BAJWA on 07/18/21832 Nitroglycerin (Nitroglycerin) 0.4 Mg Tab.subl, 0 MG SL NEEDED PRN for CHEST PAIN (ANGINA) Prescribed by: NIKITA PASTRANA on 11/07/22 1307 Pantoprazole Sodium (Protonix) 40 Mg Tablet.dr, 40 MG PO DAILY Prescribed by: RANGEL ULRICH on 03/12/23 1147 Pravastatin Sodium (Pravastatin Sodium) 40 Mg Tablet, 40 MG PO HS, (Reported) Entered as Reported by: GENOVEVA BAJWA on 07/18/21832 Triamcinolone Acetonide (Nasacort) 55 Mcg [place], 10.8 ML NS DAILY, (Reported) Entered as Reported by: MARIO SIMEON on 03/05/23 0945 Past Ywvgwqf-Prqirx-Rrvrco Hx Immunizations Up To Date Tetanus Booster (TDap): Unknown PED Vaccines UTD: No Influenza Vaccine Up-to-Date: Yes; Up-to-Date First/Initial COVID19 Vaccinat: YES Second COVID19 Vaccination Graeme: YES Third COVID19 Vaccination Date: YES Seasonal Allergies Seasonal Allergies: Yes Past Medical History Surgeries: Yes Adenoidectomy, Bowel Surgery, CABG, Coronary Stent, Eye Surgery, Gallbladder, Orthopedic, Thyroidectomy, Tonsillectomy, Tubal Ligation Respiratory: Yes Asthma Cardiac: Yes (CARDIAC CATH-STENTS X 2-- 07/2021) Coronary Artery Disease, Deep Vein Thrombosis, High Cholesterol, Hypertension Neurological: Yes Multiple Sclerosis Reproductive Disorders: No Female Reproductive Disorders: Denies MILK DRIER History: Menopausal Sexually Transmitted Disease: No HIV/AIDS: No Genitourinary: Yes (INCONTINENCE) UTI-Chronic Gastrointestinal: Yes (CELIAC DISEASE) Crohns Disease, Hiatal Hernia Musculoskeletal: Yes Arthritis Endocrine: Yes Hypothyroidsim HEENT: Yes Cataract Loss of Vision: Bilateral Hearing Impairment: Denies Cancer: Yes Skin Did You Recieve Any Treatments: Yes What Type of Treatment Did You: Surgical Intervention Psychosocial: Yes Anxiety, Depression Integumentary: No Blood Disorders: No Adverse Reaction/Blood Tranf: No (HAS HAD BLOOD WITH NO REACTION) Family Medical History Cancer 03 MOTHER (PANCREATIC CA) Family history: Asthma 09 BROTHER (ASTHMA) Family history: Cardiovascular disease 03 FATHER (IA) Family history: Hypertension 09 BROTHER 09 BROTHER Family history: Thyroid disorder 09 BROTHER Heart disease 03 FATHER Hypercholesterolemia 09 BROTHER Myocardial infarction 03 FATHER PAST SURGICAL HISTORY: -EGD'S AND COLONOSCOPIES--MOST RECENT ONE 09/09/[address] KABA CARDIAC CATH 07/18/[address] JOSEPH: CONCLUSION: 1. 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 Attempt for intervention failed to cross the lesion with a balloon in the mid right coronary artery after using multiple guides. Procedure was aborted and arrangement for evaluation at a tertiary care center 3. Normal left ventricular end-diastolic pressure DISCUSSION AND RECOMMENDATION: Patient was started on aspirin and Plavix and will arrange for evaluation for tertiary care center Physical Exam Vital Signs Vital Signs - First Documented 04/25/23 19:25 Temp 36.5 Pulse 101 Resp 16 B/P (MAP) 123/90 (101) Capillary Refill : Less Than 3 Seconds Height/Weight/BMI Height: 5'1.00" Weight: 161lbs. 0.0oz. [id number]; 27.00 BMI Method:Stated Focused Exam Lactate Level 04/25/23 20:03: Lactic Acid Level 1.26 Lactic Acid Level Laboratory Tests Test 04/25/23 20:03 Lactic Acid Level 1.26 MMOL/L (0.50-2.00) Progress/Results/Core Measures Results/Orders Lab Results Laboratory Tests Test 04/25/23 19:30 04/25/23 19:38 04/25/23 20:03 Range/Units White Blood Count 17.8 H 4.3-11.0 10^3/uL Red Blood Count 4.27 3.80-5.11 10^6/uL Hemoglobin 13.1 11.5-16.0 g/dL Hematocrit 40 35-52 % Mean Corpuscular Volume 93 80-99 fL Mean Corpuscular Hemoglobin 31 25-34 pg Mean Corpuscular Hemoglobin Concent 33 32-36 g/dL Red Cell Distribution Width 12.9 10.0-14.5 % Platelet Count 276 130-400 10^3/uL Mean Platelet Volume 11.9 9.0-12.2 fL Immature Granulocyte % (Auto) 1 % Neutrophils (%) (Auto) 87 H 42-75 % Lymphocytes (%) (Auto) 7 L 12-44 % Monocytes (%) (Auto) 5 0-12 % Eosinophils (%) (Auto) 1 0-10 % Basophils (%) (Auto) 0 0-10 % Neutrophils # (Auto) 15.5 H 1.8-7.8 10^3/uL Lymphocytes # (Auto) 1.2 1.0-4.0 10^3/uL Monocytes # (Auto) 0.8 0.0-1.0 10^3/uL Eosinophils # (Auto) 0.1 0.0-0.3 10^3/uL Basophils # (Auto) 0.1 0.0-0.1 10^3/uL Immature Granulocyte # (Auto) 0.1 0.0-0.1 10^3/uL Neutrophils % (Manual) 75 % Lymphocytes % (Manual) 5 % Monocytes % (Manual) 4 % Eosinophils % (Manual) 2 % Band Neutrophils 14 % Erythrocyte Sedimentation Rate 61 H 0-30 MM/HR Prothrombin Time 14.8 H 12.2-14.7 SEC INR Comment 1.1 0.8-1.4 Activated Partial Thromboplast Time 24 24-35 SEC Sodium Level 136 135-145 MMOL/L Potassium Level 3.8 3.6-5.0 MMOL/L Chloride Level 104 98-107 MMOL/L Carbon Dioxide Level 19 L 21-32 MMOL/L Anion Gap 13 5-14 MMOL/L Blood Urea Nitrogen 46 H 7-18 MG/DL Creatinine 1.77 H 0.60-1.30 MG/DL Estimat Glomerular Filtration Rate 29 BUN/Creatinine Ratio 26 Glucose Level 117 H 70-105 MG/DL Calcium Level 9.9 8.5-10.1 MG/DL Corrected Calcium 10.1 8.5-10.1 MG/DL Magnesium Level 2.2 1.6-2.4 MG/DL Total Bilirubin 0.7 0.1-1.0 MG/DL Aspartate Amino Transf (AST/SGOT) 25 5-34 U/L Alanine Aminotransferase (ALT/SGPT) 15 0-55 U/L Alkaline Phosphatase 69 40-136 U/L Total Creatine Kinase 262 H 29-168 U/L Creatine Kinase MB 2.6 <6.6 NG/ML Myoglobin 278.0 H 10.0-92.0 NG/ML Troponin I < 0.028 <0.028 NG/ML C-Reactive Protein High Sensitivity 40.53 H 0.00-0.50 MG/DL B-Type Natriuretic Peptide 74.3 <100.0 PG/ML Total Protein 7.0 6.4-8.2 GM/DL Albumin 3.8 3.2-4.5 GM/DL Amylase Level 132 H 25-125 U/L Lipase 52 8-78 U/L TSH [place] Testing 14.23 H 0.35-4.94 UIU/ML Influenza Type A (RT-PCR) Not Detected Not Detecte Influenza Type B (RT-PCR) Not Detected Not Detecte SARS-CoV-2 RNA (RT-PCR) Not Detected Not Detecte Lactic Acid Level 1.26 0.50-2.00 MMOL/L My Orders Orders - JACQUELYN POLK DO Ed Iv/Invasive Line Start (04/25/23 19:21) Ekg Tracing (04/25/23 19:21) Catheter(Urinary) Insert & Ass 03,15 (04/25/23 19:21) O2 (04/25/23 19:21) Monitor-Rhythm Ecg Trace Only (04/25/23 19:21) Bnp Gene (04/25/23 19:21) Cbc With Automated Diff (04/25/23 19:21) Comprehensive Metabolic Panel (04/25/23 19:21) Creatine Kinase (04/25/23 19:21) Creatine Kinase Mb (04/25/23 19:21) Hs C Reactive Protein (04/25/23 19:21) Lactic Acid Analyzer (04/25/23 19:21) Magnesium (04/25/23 19:21) Protime With Inr (04/25/23 19:21) Partial Thromboplastin Time (04/25/23 19:21) Thyroid Analyzer (04/25/23 19:21) Ua Culture If Indicated (04/25/23 19:21) Erythrocyte Sedimentation Rate (04/25/23 19:21) Myoglobin Serum (04/25/23 19:21) Troponin I Gene (04/25/23 19:21) Chest 1 View, Ap/Pa Only (04/25/23 19:21) Covid 19 Inhouse Test (04/25/23 19:21) Influenza A And B By Pcr (04/25/23 19:21) Manual Differential (04/25/23 19:30) Ct Chest/Abdomen/Pelvis Wo (04/25/23 20:15) Ed Iv/Invasive Line Start (04/25/23 20:18) Lactated Ringers (Lr 1000 Ml Iv Solution (04/25/23 20:30) Piperacillin Sodium/Tazobactam (Zosyn Vi (04/25/23 20:30) Amylase (04/25/23 20:20) Lipase (04/25/23 20:20) Free T4 (Free Thyroxine) (04/25/23 19:30) Fentanyl Inj (Sublimaze Injection) (04/25/23 21:00) Vital Signs/I&O 04/25/23 19:25 Temp 36.5 Pulse 101 Resp 16 B/P (MAP) 123/90 (101) Blood Pressure Mean: 101 Diagnostic Imaging Comments CXR--PER RADIOLOGIST REPORT AT 2028 FINDINGS: There is air beneath both hemidiaphragms regions. Air-filled gastric bubble is also seen. Pneumoperitoneum cannot be completely excluded. There is elevation of both hemidiaphragms and bibasilar atelectasis or scarring. Cardiac silhouette is mildly prominent. Pulmonary vasculature is within normal limits. There are spurs involving the thoracic spine. IMPRESSION: 1.: There is air underneath both hemidiaphragm regions and pneumoperitoneum may be considered. If there is no history of surgery or reason for intra-abdominal air, CT scan abdomen and pelvis would be suggested. 2: There is mild bibasilar atelectasis or scarring. Reviewed: Reviewed by Me Departure Communication (Admissions) 2040--SPOKE WITH DR. SHEETS, SURGEON MOBILE UI DEVELOPER. HE WILL REVIEW CT AND CALL ME BACK Impression Primary Impression: Perforated abdominal viscus Departure-Patient Inst. Referrals: [facility] (PCP/Family) Primary Care Physician JACQUELYN POLK DO Apr 25, 2023 20:24
[2023-04-25] MEDS ORDERED: PIPERACILLIN SODIUM/TAZOBACTAM 4.5 GM in NS (IVPB) 100 ML IV ONE (20:30)
[2023-04-25] MEDS ORDERED: LACTATED RINGERS 1,000 ML IV ONE (20:30)
[2023-04-25 20:38] LABS: AMYLASE 132 U/L (25-125); LIPASE 52 U/L (8-78)
[2023-04-25] MEDS ORDERED: fentaNYL INJ 100 MCG/2 ML AMP IVP ONE ×2 (21:00→22:00)
[2023-04-25 21:11] LABS: CLARITY,URINE SL CLOUDY; COLOR,URINE DARK YELLOW; GLUCOSE, URINE (UA) NEGATIVE (NEGATIVE); KETONES,URINE NEGATIVE (NEGATIVE); LEUKOCYTE ESTERASE ,URINE 2+ (NEGATIVE); NITRITE,URINE NEGATIVE (NEGATIVE); PROTEIN,URINE 2+ (NEGATIVE)
[2023-04-25 21:23] LABS: FREE T4 (FREE THYROXINE) 0.68 NG/DL (0.70-1.48)
[2023-04-25 21:24] LABS: AMORPHOUS SEDIMENT,UR FEW AMOR URATES /LPF; BACTERIA,URINE LARGE /HPF; BILIRUBIN,URINE 1+ (NEGATIVE); RBC,URINE 0-2 /HPF
--- NOTE | 2023-04-25 21:25 | Diagnostic Imaging Report ---
CLINICAL INDICATIONS: Patient with weakness and pain. EXAM: Axial CT scan of the chest, abdomen, and pelvis performed without IV or enteric contrast. Sagittal and coronal reformatted images are created. Auto Exposure Controls were utilized during the CT exam to meet ALARA standards for radiation dose reduction. COMPARISON: Chest x-ray dated 04/25/2023. FINDINGS: There is a small right pleural effusion with mild compressive atelectasis involving the posterior aspect of the right lung base. There is mild bibasilar atelectasis versus scarring with parenchymal bands seen. Otherwise, lungs are clear. There is no pneumothorax. There is no significant axillary, hilar, or mediastinal lymphadenopathy. There is no mediastinal mass seen. Vascular calcifications in the coronary arteries are seen. There is minimal pericardial fluid. There is a small amount of intra-abdominal free air mostly seen in the right upper quadrant adjacent to the liver. There is also significant free air involving the anterior abdominal region. There is air involving a fat-containing umbilical hernia and extending along the midline anterior abdominal wall which appears extra-abdominal and intra-abdominal. There is no localized viscus parafalcine. Exact etiology of intra-abdominal free air is unknown. There is no intestinal obstruction. There are air-fluid levels which are nondilated involving the transverse colon. There is also a small amount of fluid in the right perihepatic region. There is a contained fluid collection within the abdomen which is along the right anterior lateral aspect of abdominal wall which measures 2.7 cm x 6.0 cm in greatest axial dimensions and 2.0 cm in cranial caudal dimensions. There is wall thickening involving the pylorus and 1st portion of duodenum which is nonspecific. The uterus and adnexal structures show no significant abnormality. There is a moderate amount stool in the rectum and small to moderate amount seen throughout the rest of the colon. The liver, spleen, pancreas and adrenal glands are unremarkable. Gallbladder surgically absent. There is a left renal cyst. There is atrophic left kidney seen. There is no hydronephrosis or urinary tract stones. The bladder has small amount of fluid within it. IMPRESSION: 1: There is a small to moderate amount of intra-abdominal free air of unknown etiology. There is no evidence of viscus perf seen on this exam. There is wall thickening involving the pylorus and 1st portion of duodenum which is nonspecific. Antritis or duodenitis may be considered versus contraction. 2: There is a small amount of free fluid right upper quadrant near the liver of unknown etiology. There is also a contained area of intraperitoneal fluid along the right anterior lateral abdominal wall which is nonspecific. A seroma or abscess may be considered. 3: There is air along the midline anterior abdominal wall and in a fat-containing umbilical hernia. Evaluation for abdominal wall defect extending to the abdomen should be excluded. 4: There is a right pleural effusion and bibasilar atelectasis. Dictated by: Dictated on workstation # [id number]
[2023-04-25] MEDS ORDERED: MIDAZOLAM 2 MG/2 ML (VERSED) VIAL ONE (21:57)
[2023-04-25] MEDS ORDERED: LIDOCAINE PF 2% 5 ML (XYLOCAINE) VIAL ONE (21:57)
[2023-04-25] MEDS ORDERED: SEVOFLURANE (ULTANE) 15 ML INHAL SOLN ONE (21:57)
[2023-04-25] MEDS ORDERED: SUCCINYLCHOLINE INJ 20 MG/1 ML 10 ML VIAL ONE (21:57)
[2023-04-25] MEDS ORDERED: fentaNYL INJ 100 MCG/2 ML AMP ONE (21:57)
[2023-04-25] MEDS ORDERED: ONDANSETRON 4 MG/2 ML (SDV) Z0FRAN ONE (21:57)
[2023-04-25] MEDS ORDERED: proPOfol 200 MG/20 ML (DIPRIVAN) VIAL IV ONE (21:57)
[2023-04-25] MEDS ORDERED: ONDANSETRON 4 MG/2 ML (SDV) Z0FRAN IVP PRN (22:00)
[2023-04-25] MEDS ORDERED: MEPERIDINE (DEMEROL) INJ 50 MG/ML IVP ONE (22:00)
[2023-04-25] MEDS ORDERED: morphine INJ 10 MG/ML 1ML (SYR OR VIAL) IVP ONE (22:00)
[2023-04-25] MEDS ORDERED: LACTATED RINGERS 1,000 ML IV PRN (22:00)
--- NOTE | 2023-04-25 22:21 | Consultation - Surgery ---
History of Present Illness History of Present Illness Patient Consulted On(dane/time) 04/25/23 22:15 Time Seen by Provider: 21:42 History of Present Illness Surgery asked to consult regarding pneumoperitoneum. HPI per ED: Pt presents via EMS from [facility] with c/o abdominal pain, decreased appetite, BM's and gas. Pt had a recent endoscopy for a possible ulcer approx 2 days ago. Pt was taken to [facility] by son for concern over cognitive issues. When I spoke to pt and her son, they state she was brought in because of change in mental status. She had an EGD with dilation of GE junction and pylorus on Friday. Stated that about 2 hours after procedure she felt "bloated" and maybe had more pain. However, pt states she always has pain so it is hard to determine if pain got worse. States she did vomit on , but doesn't think she did today. She is very confused and states she "loses the timeline". Allergies and Home Medications Allergies Coded Allergies: ciprofloxacin (Verified Allergy, Severe, 10/03/13) gluten (Unverified Allergy, Severe, 03/23/15) Patient Home Medication List Home Medication List Reviewed: Yes Albuterol Sulfate (Albuterol Sulfate) 0.63 Mg/3 Ml Vial.neb, 0.63 MG IH PRN, (Reported) Entered as Reported by: MARIO SIMEON on 03/05/23 0945 Aspirin (Aspirin EC) 81 Mg Tablet.dr, 81 MG PO DAILY Prescribed by: MERYL JOSEPH on 07/19/21 0548 Calcium Carbonate (Calcium) 600 Mg Tablet, 600 MG PO DAILY, (Reported) Entered as Reported by: GENOVEVA BAJWA on 07/18/21 0833 Cholecalciferol (Vitamin D3) (Vitamin D3) 50 Mcg Capsule, 50 MCG PO DAILY, (Reported) Entered as Reported by: GENOVEVA BAJWA on 07/18/21 08 Cyanocobalamin (Vitamin B-12) (Vitamin B-12) 2,000 Mcg Tablet, 2,000 MCG PO DAILY, (Reported) Entered as Reported by: GENOVEVA BAJWA on 07/18/21 08 Fexofenadine HCl (Carmen Allergy) 180 Mg Tablet, 180 MG PO DAILY, (Reported) Entered as Reported by: GENOVEVA BAJWA on 9/12/07 832 Fluticasone/Vilanterol (Breo Ellipta 100-25 Mcg INH) 1 Each Blst.w.dev, 1 EACH IH DAILY, (Reported) Entered as Reported by: GENOVEVA BAJWA on 07/18/21832 Gabapentin (Neurontin) 300 Mg Capsule, 300 MG PO HS, (Reported) Entered as Reported by: GENOVEVA BAJWA on 07/18/21832 Gemfibrozil (Gemfibrozil) 600 Mg Tablet, 600 MG PO BID, (Reported) Entered as Reported by: GENOVEVA BAJWA on 07/18/21832 Glucosa Cuellar 2Kcl/Chondroitin Cuellar (Glucosamine & Chondroitin Cap) 500 Mg-400 Mg Capsule, 1 EACH PO DAILY, (Reported) Entered as Reported by: MARIO SIMEON on 03/05/23944 Levothyroxine Sodium (Levothyroxine) 75 Mcg Capsule, 75 MCG PO DAILY, (Reported) Entered as Reported by: GENOVEVA BAJWA on 07/18/21832 Liothyronine Sodium (Liothyronine Sodium) 5 Mcg Tablet, 5 MCG PO DAILY, (Reported) Entered as Reported by: GENOVEVA BAJWA on 07/18/21832 Losartan Potassium (Losartan Potassium) 100 Mg Tablet, 100 MG PO DAILY, (Reported) Entered as Reported by: GENOVEVA BAJWA on 07/18/21832 Mirabegron (Myrbetriq) 50 Mg Tab.er.24h, 50 MG PO DAILY, (Reported) Entered as Reported by: GENOVEVA BAJWA on 07/18/21832 Multivitamin with Minerals (One Daily Complete) 1 Each Tablet, 1 EACH PO DAILY, (Reported) Entered as Reported by: GENOVEVA BAJWA on 07/18/21832 Nitroglycerin (Nitroglycerin) 0.4 Mg Tab.subl, 0 MG SL NEEDED PRN for CHEST PAIN (ANGINA) Prescribed by: NIKITA PASTRANA on 11/07/22 1307 Pantoprazole Sodium (Protonix) 40 Mg Tablet.dr, 40 MG PO DAILY Prescribed by: RANGEL ULRICH on 03/12/23 1147 Pravastatin Sodium (Pravastatin Sodium) 40 Mg Tablet, 40 MG PO HS, (Reported) Entered as Reported by: GENOVEVA BAJWA on 07/18/21832 Triamcinolone Acetonide (Nasacort) 55 Mcg [place], 10.8 ML NS DAILY, (Reported) Entered as Reported by: MARIO SIMEON on 03/05/23 0945 Past Jceyvuv-Wiordk-Czuwdl Hx Patient Social History Smoking Status: Former Smoker Recent Hopitalizations: Yes Alcohol Use?: No Immunizations Up To Date Tetanus Booster (TDap): Unknown PED Vaccines UTD: No Date of Pneumonia Vaccine: Jun 17, 2012 Date of Influenza Vaccine: Aug 17, 2013 Seasonal Allergies Seasonal Allergies: Yes Surgeries History of Surgeries: Yes Surgeries: Adenoidectomy, Bowel Surgery, CABG, Coronary Stent, Eye Surgery, Gallbladder, Orthopedic, Thyroidectomy, Tonsillectomy, Tubal Ligation Respiratory History of Respiratory Disorde: Yes Respiratory Disorders: Asthma Cardiovascular History of Cardiac Disorders: Yes (CARDIAC CATH-STENTS X 2-- 07/2021) Cardiac Disorders: Coronary Artery Disease, Deep Vein Thrombosis, High Cholesterol, Hypertension Neurological History of Neurological Disord: Yes Neurological Disorders: Multiple Sclerosis Reproductive System Hx Reproductive Disorders: No Sexually Transmitted Disease: No HIV/AIDS: No Female Reproductive Disorders: Denies PATCH SANDER History: Menopausal Genitourinary History of Genitourinary Disor: Yes (INCONTINENCE) Genitourinary Disorders: UTI-Chronic Gastrointestinal History of Gastrointestinal Di: Yes (CELIAC DISEASE) Gastrointestinal Disorders: Crohns Disease, Hiatal Hernia Musculoskeletal History of Musculoskeletal Dis: Yes Musculoskeletal Disorders: Arthritis Endocrine History of Endocrine Disorders: Yes Endocrine Disorders: Hypothyroidsim HEENT History of HEENT Disorders: Yes HEENT Disorders: Cataract Loss of Vision: Bilateral Hearing Impairment: Denies Cancer History of Cancer: Yes Cancer: Skin Psychosocial History of Psychiatric Problem: Yes Behavioral Health Disorders: Anxiety, Depression Integumentary History of Skin or Integumenta: No Blood Transfusions History of Blood Disorders: No Adverse Reaction to a Blood Tr: No (HAS HAD BLOOD WITH NO REACTION) Family Medical History Significant Family History: Cancer (Mother of pancreatic cancer) Family Medial History: Cancer 03 MOTHER (PANCREATIC CA) Family history: Asthma 09 BROTHER (ASTHMA) Family history: Cardiovascular disease 03 FATHER (VT) Family history: Hypertension 09 BROTHER 09 BROTHER Family history: Thyroid disorder 09 BROTHER Heart disease 03 FATHER Hypercholesterolemia 09 BROTHER Myocardial infarction 03 FATHER Review of Systems-General Constitutional: malaise, weakness EENTM: No blurred vision, No mouth swelling, No epistaxis Respiratory: No cough, No dyspnea on exertion, No hemoptysis; short of breath Cardiovascular: No chest pain; Hx of Intervention; No palpitations Gastrointestinal: abdominal pain, heartburn; No jaundice; loss of appetite, nausea, vomiting Genitourinary: No dysuria; frequency; No hematuria; incontinence Musculoskeletal: back pain, joint pain, muscle stiffness, muscle cramps Skin: No change in color, No change in hair/nails Psychiatric/Neurological: Denies Anxiety; Depressed; Denies Seizure Physical Exam-General Problems Physical Exam Vital Signs Vital Signs - First Documented 04/25/23 19:25 Temp 36.5 Pulse 101 Resp 16 B/P (MAP) 123/90 (101) Capillary Refill : Less Than 3 Seconds General Appearance: moderate distress, cachetic, other (chronically ill) Eyes: Bilateral Eye PERRL, Bilateral Eye EOMI HEENT: pharynx normal; No scleral icterus (R), No scleral icterus (L); other (edentulous) Neck: non-tender, supple Respiratory: lungs clear, normal breath sounds, no respiratory distress, no accessory muscle use, decreased breath sounds (right base with dullness to percussion) Cardiovascular: regular rate, rhythm, no murmur Gastrointestinal: soft, distended, guarding (voluntary), hernia (Ventral/incisional - incarcerated) Rectal: deferred Genital/Rectal: other (portillo in place with yellow urine) Extremities: no pedal edema, no calf tenderness, normal capillary refill Neurologic/Psychiatric: prison guard II-XII nml as tested, alert Skin: normal color Lymphatic: no adenopathy (neck, axilla or groin) Data Review Labs Laboratory Tests 04/25/23 19:30: White Blood Count 17.8H, Red Blood Count 4.27, Hemoglobin 13.1, Hematocrit 40, Mean Corpuscular Volume 93, Mean Corpuscular Hemoglobin 31, Mean Corpuscular Hemoglobin Concent 33, Red Cell Distribution Width 12.9, Platelet Count 276, Mean Platelet Volume 11.9, Immature Granulocyte % (Auto) 1, Neutrophils (%) (Auto) 87H, Lymphocytes (%) (Auto) 7L, Monocytes (%) (Auto) 5, Eosinophils (%) (Auto) 1, Basophils (%) (Auto) 0, Neutrophils # (Auto) 15.5H, Lymphocytes # (Auto) 1.2, Monocytes # (Auto) 0.8, Eosinophils # (Auto) 0.1, Basophils # (Auto) 0.1, Immature Granulocyte # (Auto) 0.1, Neutrophils % (Manual) 75, Lymphocytes % (Manual) 5, Monocytes % (Manual) 4, Eosinophils % (Manual) 2, Band Neutrophils 14, Erythrocyte Sedimentation Rate 61H, Prothrombin Time 14.8H, INR Comment 1.1, Activated Partial Thromboplast Time 24, Sodium Level 136, Potassium Level 3.8, Chloride Level 104, Carbon Dioxide Level 19L, Anion Gap 13, Blood Urea Nitrogen 46H, Creatinine 1.77H, Estimat Glomerular Filtration Rate 29, BUN/Creatinine Ratio 26, Glucose Level 117H, Calcium Level 9.9, Corrected Calcium 10.1, Magnesium Level 2.2, Total Bilirubin 0.7, Aspartate Amino Transf (AST/SGOT) 25, Alanine Aminotransferase (ALT/SGPT) 15, Alkaline Phosphatase 69, Total Creatine Kinase 262H, Creatine Kinase MB 2.6, Myoglobin 278.0H, Troponin I < 0.028, C- Reactive Protein High Sensitivity 40.53H, B-Type Natriuretic Peptide 74.3, Total Protein 7.0, Albumin 3.8, Amylase Level 132H, Lipase 52, Free Thyroxine 0.68L, TSH [place] Testing 14.23H 04/25/23 19:38: Influenza Type A (RT-PCR) Not Detected, Influenza Type B (RT-PCR) Not Detected, SARS-CoV-2 RNA (RT-PCR) Not Detected 04/25/23 20:03: Lactic Acid Level 1.26 04/25/23 21:06: Urine Color DARK YELLOW, Urine Clarity SL CLOUDY, Urine pH 6.0, Urine Specific [place] 1.025H, Urine Protein 2+H, Urine Glucose (UA) NEGATIVE, Urine Ketones NEGATIVE, Urine Nitrite NEGATIVE, Urine Bilirubin 1+H, Urine Urobilinogen 1.0, Urine Leukocyte Esterase 2+H, Urine RBC (Auto) TRACE-IH, Urine RBC 0-2, Urine WBC 10-25H, Urine Squamous Epithelial Cells 5-10, Urine Crystals PRESENTH, Urine Amorphous Sediment FEW HO URATESH, Urine Bacteria LARGEH, Urine Casts PRESENT, Urine Hyaline Casts 10-25H, Urine Mucus NEGATIVE, Urine Culture Indicated YES Radiology Date of Exam:04/25/23 CT CHEST/ABDOMEN/PELVIS WO CLINICAL INDICATIONS: Patient with weakness and pain. EXAM: Axial CT scan of the chest, abdomen, and pelvis performed without IV or enteric contrast. Sagittal and coronal reformatted images are created. Auto Exposure Controls were utilized during the CT exam to meet ALARA standards for radiation dose reduction. COMPARISON: Chest x-ray dated 04/25/2023. FINDINGS: There is a small right pleural effusion with mild compressive atelectasis involving the posterior aspect of the right lung base. There is mild bibasilar atelectasis versus scarring with parenchymal bands seen. Otherwise, lungs are clear. There is no pneumothorax. There is no significant axillary, hilar, or mediastinal lymphadenopathy. There is no mediastinal mass seen. Vascular calcifications in the coronary arteries are seen. There is minimal pericardial fluid. There is a small amount of intra-abdominal free air mostly seen in the right upper quadrant adjacent to the liver. There is also significant free air involving the anterior abdominal region. There is air involving a fat-containing umbilical hernia and extending along the midline anterior abdominal wall which appears extra-abdominal and intra-abdominal. There is no localized viscus parafalcine. Exact etiology of intra-abdominal free air is unknown. There is no intestinal obstruction. There are air-fluid levels which are nondilated involving the transverse colon. There is also a small amount of fluid in the right perihepatic region. There is a contained fluid collection within the abdomen which is along the right anterior lateral aspect of abdominal wall which measures 2.7 cm x 6.0 cm in greatest axial dimensions and 2.0 cm in cranial caudal dimensions. There is wall thickening involving the pylorus and 1st portion of duodenum which is nonspecific. The uterus and adnexal structures show no significant abnormality. There is a moderate amount stool in the rectum and small to moderate amount seen throughout the rest of the colon. The liver, spleen, pancreas and adrenal glands are unremarkable. Gallbladder surgically absent. There is a left renal cyst. There is atrophic left kidney seen. There is no hydronephrosis or urinary tract stones. The bladder has small amount of fluid within it. IMPRESSION: 1: There is a small to moderate amount of intra-abdominal free air of unknown etiology. There is no evidence of viscus perf seen on this exam. There is wall thickening involving the pylorus and 1st portion of duodenum which is nonspecific. Antritis or duodenitis may be considered versus contraction. 2: There is a small amount of free fluid right upper quadrant near the liver of unknown etiology. There is also a contained area of intraperitoneal fluid along the right anterior lateral abdominal wall which is nonspecific. A seroma or abscess may be considered. 3: There is air along the midline anterior abdominal wall and in a fat-containing umbilical hernia. Evaluation for abdominal wall defect extending to the abdomen should be excluded. 4: There is a right pleural effusion and bibasilar atelectasis. Dictated on workstation # [id number] Dict: 04/25/232112 Trans: 04/25/232122 CV [id number] Interpreted by: ABDULKADIR MAK MD Assessment/Plan Assessment/Plan Assessment/Plan Pneumoperitoneum CAD HTN Asthma Pt is very sick, probably septic which is causing her confusion. She has elevated WBC to 17.8 K and has free air on CT. I discussed the case with the ED physician and reviewed the CT myself; she has air in the subQ at hernia and in the upper abdomen. She also has free fluid and has a hole, most likely in the stomach; but I don't think it has anything to do with dilation done during EGD. Pt needs Exploratory Laparotomy and all other indicated procedures. We talked about risks and complications not limited to pain, bleeding, infection, scar, damage to bowel and need for further procedure. I told her that hopefully it is just a gastric perforation and we can close that up, place drains and wash abdomen out. There is the possibility she will need bowel resection. All questions answered to pt and her son's satisfaction. LEONEL SHEETS DO Apr 25, 2023 22:21
[2023-04-25] MEDS ORDERED: ROCURONIUM 50 MG/5 ML (ZEMURON) VIAL IV ONE (22:32)
[2023-04-25] MEDS ORDERED: ISOFLURANE (FORANE) 15 ML/15 MIN INHALATION ONE (22:44)
[2023-04-25] MEDS ORDERED: PHENYLEPHRINE 100 MCG/ML 10 ML (ANESTHESIA) SYR ONE (22:45)
[2023-04-25] MEDS ORDERED: SUGAMMADEX 500 MG/5 ML VIAL (BRIDION) IV ONE (23:24)
[2023-04-25 23:40] VITALS: BP 146/94
--- NOTE | 2023-04-25 23:45 | Progress Note-Post Operative ---
Post-Operative Progess Note Surgeon (s)/Molder Machine (s) Surgeon LEONEL SHEETS DO Molder Machine: none Pre-Operative Diagnosis Pneumoperitoneum Post-Operative Diagnosis Duodenal perforation Procedure & Operative Findings Date of Procedure 04/25/23 Procedure Performed/Findings Exp Laparotomy with abdominal washout Primary repair of duodenal perforation with Modified Pato patch Anesthesia Type GET Estimated Blood Loss Estimated blood loss (mL): less than 30ml Specimens/Packing Specimens Removed none LEONEL SHEETS DO Apr 25, 2023 23:45
[2023-04-25 23:50] VITALS: BP 131/84
[2023-04-26] MEDS ORDERED: LACTATED RINGERS 1,000 ML IV PRN ×2
[2023-04-26 00:01] VITALS: BP 148/85
[2023-04-26] MEDS ORDERED: morphine INJ 10 MG/ML 1ML (SYR OR VIAL) ONE (00:08)
[2023-04-26 00:10] VITALS: BP 146/86
[2023-04-26 00:20] VITALS: BP 131/79
[2023-04-26 00:30] VITALS: BP 132/75
[2023-04-26] MEDS ORDERED: ONDANSETRON 4 MG/2 ML (SDV) Z0FRAN IVP PRN (02:00)
--- NOTE | 2023-04-26 02:24 | Tele-ICU Progress Note ---
Progress Note 77F admitted for perforated duodenal ulcer. She was taken for emergent surgery, now s/p Pato patch repair. She is HD stable and in no distress. - perf bowel: noww s/p Pato patch repair. Routine post op care. PPI. Zosyn. - DIVYA: from baseline 0.7 to 1.7. Prerenal vs septic ATN. Volume ongoing. Repeat in AM. Noted to have myoglobin 278. Repeat along with CK (262) with AM labs. Patient assessed via real time audiovisual communication device. CCT 5 min Focused Exam Lactate Level 04/25/23 20:03: Lactic Acid Level 1.26 Height, Weight, BMI Height: 5'1.00" Weight: 161lbs. 0.0oz. 73.389943ta; 28.09 BMI Method:Stated LORI BARTLETT MD Apr 26, 2023 02:24
[2023-04-26] MEDS: morphine INJ 4 MG/ML 1 ML (VIAL/SYRINGE) IVP PRN ×6 (02:57→22:25)
[2023-04-26] MEDS: LACTATED RINGERS 1,000 ML IV SCH ×4 (02:57→20:32)
[2023-04-26] MEDS: PIPERACILLIN SODIUM/TAZOBACTAM 4.5 GM in NS (IVPB) 100 ML IV SCH ×3 (02:58→18:18)
[2023-04-26 03:49] LABS: BASOPHILS % (AUTO) 0 % (0-10); EOSINOPHILS # (AUTO) 0.2 10^3/uL (0.0-0.3); EOSINOPHILS % (AUTO) 1 % (0-10); HEMATOCRIT 38 % (35-52); HEMOGLOBIN 12.6 g/dL (11.5-16.0); LYMPHOCYTES # (AUTO) 0.9 10^3/uL (1.0-4.0); LYMPHOCYTES % (AUTO) 6 % (12-44); MEAN CORPUSCULAR HEMOGLOBIN 31 pg (25-34); MEAN CORPUSCULAR HGB CONC 33 g/dL (32-36); MEAN CORPUSCULAR VOLUME 93 fL (80-99); MONOCYTES # (AUTO) 0.6 10^3/uL (0.0-1.0); MONOCYTES % (AUTO) 5 % (0-12); NEUTROPHILS # (AUTO) 12.3 10^3/uL (1.8-7.8); NEUTROPHILS % (AUTO) 87 % (42-75); PLATELET COUNT 230 10^3/uL (130-400); WHITE BLOOD COUNT 14.1 10^3/uL (4.3-11.0)
[2023-04-26 04:01] LABS: ALBUMIN 3.2 GM/DL (3.2-4.5)
[2023-04-26 04:02] LABS: POTASSIUM 3.7 MMOL/L (3.6-5.0)
[2023-04-26 04:04] LABS: TOTAL PROTEIN 5.9 GM/DL (6.4-8.2)
[2023-04-26 04:06] LABS: BILIRUBIN,TOTAL 0.6 MG/DL (0.1-1.0)
[2023-04-26 04:07] LABS: PHOSPHORUS 4.1 MG/DL (2.3-4.7)
[2023-04-26 04:08] LABS: CREATININE SERUM 1.52 MG/DL (0.60-1.30)
[2023-04-26 04:10] LABS: MAGNESIUM 1.9 MG/DL (1.6-2.4)
[2023-04-26] MEDS ORDERED: NS IV 500 ML 500 ML IV PRN (05:00)
[2023-04-26] MEDS: MAGNESIUM 1 GM/100 ML IVPB 100 ML IV SCH ×4 (05:26→07:41)
[2023-04-26] MEDS: POTASSIUM CL 10MEQ/50ML IVPB 50 ML IV SCH ×3 (05:49→07:50)
[2023-04-26] MEDS: KCL 20 MEQ TAB (K-DUR) PO SCH (05:50)
[2023-04-26] MEDS: PANTOPRAZOLE 40 MG (PROTONIX) VIAL IV SCH ×2 (07:53→20:32)
[2023-04-26] MEDS: FLUCONAZOLE 200 MG/100 ML 100 ML IV SCH (09:46)
--- NOTE | 2023-04-26 09:48 | Tele-ICU Progress Note ---
Subjective Date Seen by a Provider: Apr 26, 2023 Time Seen by a Provider: 09:47 Subjective/Events-last exam (Tele-ICU Physician , Progress Note ) Service provided via interactive audio and video telecommunications E-CARE system to a patient admitted to ICU bed in [facility]. Patient is seen today due to persistent need of ICU care Available chart/ vitals / labs / Images reviewed Video assessment done using teleICU camera, rest of exam as per RN Discussed with RN Events overnight : Afebrile hemodynamically stable Hospital course: (04/26) 77yF to ED with AMS, abd pain. s/p endoscpy 2 days ago ICU post op Emerg Ex Lap, Abd washout w/ primary closure duo perf. Note + UTI noted A/P perf bowel: noww s/p Pato patch repair. - Zosyn. - DIVYA -Prerenal vs septic ATN. -Volume ongoing. Noted to have myoglobin 278. Repeat along with CK Lines : periph , (Central Line Necessity Reviewed) [place]: 04/25 OG: Nutrition: npo Analgesia: Anxiety/ delirium VTE Prophylaxis: scd Stress Ulcer Prophylaxis: ppi Plans in collaboration with bedside consultants and IM MDs. Discussed with RN to reach out if any questions or concerns Case and care daily discussed on multidisciplinary rounds ( RN, PharmD, Sales Administration Manager , Respiratory Therapy, radiation control worker ) A total of 15 minutes of critical care time was devoted to this patient today, required to treat and/or prevent further deterioration of critical care condition ( as above ) . I am remotely monitoring this patient from another state. I am unable to do the bedside exam, and history/physical and pertinent information is taken from other notes in the computer and bedside staff. Sepsis Event Evaluation Height, Weight, BMI Height: 5'1.00" Weight: 161lbs. 0.0oz. 73.402414gw; 27.71 BMI Method:Stated Focused Exam Lactate Level 04/25/23 20:03: Lactic Acid Level 1.26 04/26/23 03:36: Lactic Acid Level 0.89 Exam Exam Patient acknowledged, consented, and participated in this virtual visit which was conducted using real time audio/video Vital Signs Date Time Temp Pulse Resp B/P (MAP) Pulse Ox O2 Delivery O2 Flow Rate FiO2 04/26/23 09:00 73 14 96/62 (77) 92 Nasal Cannula 2.00 04/26/23 08:00 80 13 104/67 (80) 93 Nasal Cannula 2.00 04/26/23 07:55 36.5 04/26/23 07:00 81 04/26/23 07:00 85 11 116/63 (94) 92 Nasal Cannula 2.00 04/26/23 06:00 85 13 108/57 (74) 93 Nasal Cannula 2.00 04/26/23 05:51 Nasal Cannula 2.00 04/26/23 05:00 87 18 115/74 (88) 94 Nasal Cannula 2.00 04/26/23 04:00 94 Nasal Cannula 2.00 04/26/23 04:00 90 12 120/71 (87) 94 Nasal Cannula 2.00 04/26/23 03:00 90 14 114/72 (86) 94 Nasal Cannula 2.00 04/26/23 01:45 92 16 130/72 (91) 94 Nasal Cannula 2.00 04/26/23 01:15 92 15 125/67 (86) 92 Nasal Cannula 2.00 04/26/23 01:05 93 Nasal Cannula 2.00 04/26/23 00:59 85 04/26/23 00:45 89 14 130/71 (90) 93 Nasal Cannula 2.00 04/26/23 00:40 Nasal Cannula 2.00 04/26/23 00:30 37.0 14 132/75 (94) 94 Nasal Cannula 2.00 04/26/23 00:30 90 16 135/75 (95) 93 Nasal Cannula 2.00 04/26/23 00:25 Nasal Cannula 2.00 04/26/23 00:20 14 131/79 (96) 94 Nasal Cannula 2.00 04/26/23 00:15 93 16 131/79 (96) 93 Nasal Cannula 2.00 04/26/23 00:10 16 146/86 (106) 94 Nasal Cannula 2.00 04/26/23 00:10 Nasal Cannula 2.00 04/26/23 00:01 16 148/85 (106) 93 Nasal Cannula 2.00 04/26/23 00:00 93 19 146/83 (104) 96 Nasal Cannula 2.00 04/25/23 23:55 OxyMask 3.00 04/25/23 23:50 18 131/84 (100) 95 OxyMask 3.00 04/25/23 23:40 37.1 20 146/94 (111) 99 OxyMask 4.00 04/25/23 23:40 OxyMask 4.00 04/25/23 19:25 36.5 101 16 123/90 (101) I & O 04/26/23 07:00 Intake Total 2350 ml Output Total 375 ml Balance 1975 ml Height & Weight Height: 5'1.00" Weight: 161lbs. 0.0oz. 73.653382jg; 27.71 BMI Method:Stated General Appearance: Other Capillary Refill: Less Than 3 Seconds Gastrointestinal: soft, distended, guarding (voluntary), hernia (Ventral/incisional - incarcerated) Results Lab Laboratory Tests 04/25/23 19:30 04/26/23 03:36 Assessment/Plan Assessment/Plan 1 STEPHEN MCCULLOUGH MD Apr 26, 2023 09:48
--- NOTE | 2023-04-26 10:11 | Anesthesia-General Post-Op ---
General Patient Condition Mental Status/LOC: Same as Preop Cardiovascular: Satisfactory Nausea/Vomiting: Absent Respiratory: Satisfactory Pain: Controlled Complications: Absent Post Op Complications Complications None Follow Up Care/Instructions Patient Instructions None needed. Anesthesia/Patient Condition Patient Condition Patient is doing well, no complaints, stable vital signs, no apparent adverse anesthesia problems. No complications reported per nursing. JUANCHO PURVIS CRNA Apr 26, 2023 10:11
[2023-04-26] MEDS ORDERED: NON-FORMULARY MEDICATION 1 EA EA (Albuterol Sulfate 0.63 MG) IH SCH (11:45)
[2023-04-26] MEDS ORDERED: RT-ALBUTEROL SULF 2.5 MG/3 ML PRE-MIX VIAL INH PRN (12:00)
--- NOTE | 2023-04-26 15:30 | Progress Note - Surgery ---
Subjective Time Seen by a Provider: 10:40 Subjective/Events-last exam Pt seen and examined, states she feels ok. Pain is mostly controlled. Review of Systems Pulmonary: No Dyspnea, No Cough Cardiovascular: No: Chest Pain, Palpitations Gastrointestinal: Abdominal Pain; No: Nausea, Vomiting Focused Exam Lactate Level 04/25/23 20:03: Lactic Acid Level 1.26 04/26/23 03:36: Lactic Acid Level 0.89 Objective Exam Vital Signs Date Time Temp Pulse Resp B/P (MAP) Pulse Ox O2 Delivery O2 Flow Rate FiO2 04/26/23 14:39 92 Nasal Cannula 2.00 04/26/23 14:00 69 8 106/63 (85) 96 Nasal Cannula 2.00 04/26/23 13:00 69 8 109/62 (91) 95 Nasal Cannula 2.00 04/26/23 13:00 73 04/26/23 12:40 96 Nasal Cannula 2.00 04/26/23 12:00 69 9 115/66 (87) 94 Nasal Cannula 2.00 04/26/23 11:47 35.9 04/26/23 11:36 95 Nasal Cannula 2.00 04/26/23 11:00 76 11 114/72 (94) 94 Nasal Cannula 2.00 04/26/23 10:00 78 9 112/71 (83) 94 Nasal Cannula 2.00 04/26/23 09:00 73 14 96/62 (77) 92 Nasal Cannula 2.00 04/26/23 08:00 80 13 104/67 (80) 93 Nasal Cannula 2.00 04/26/23 08:00 93 Nasal Cannula 2.00 04/26/23 07:55 36.5 04/26/23 07:00 81 04/26/23 07:00 85 11 116/63 (94) 92 Nasal Cannula 2.00 04/26/23 06:00 85 13 108/57 (74) 93 Nasal Cannula 2.00 04/26/23 05:51 Nasal Cannula 2.00 04/26/23 05:00 87 18 115/74 (88) 94 Nasal Cannula 2.00 04/26/23 04:00 94 Nasal Cannula 2.00 04/26/23 04:00 90 12 120/71 (87) 94 Nasal Cannula 2.00 04/26/23 03:00 90 14 114/72 (86) 94 Nasal Cannula 2.00 04/26/23 01:45 92 16 130/72 (91) 94 Nasal Cannula 2.00 04/26/23 01:15 92 15 125/67 (86) 92 Nasal Cannula 2.00 04/26/23 01:05 93 Nasal Cannula 2.00 04/26/23 00:59 85 04/26/23 00:45 89 14 130/71 (90) 93 Nasal Cannula 2.00 04/26/23 00:40 Nasal Cannula 2.00 04/26/23 00:30 37.0 14 132/75 (94) 94 Nasal Cannula 2.00 04/26/23 00:30 90 16 135/75 (95) 93 Nasal Cannula 2.00 04/26/23 00:25 Nasal Cannula 2.00 04/26/23 00:20 14 131/79 (96) 94 Nasal Cannula 2.00 04/26/23 00:15 93 16 131/79 (96) 93 Nasal Cannula 2.00 04/26/23 00:10 16 146/86 (106) 94 Nasal Cannula 2.00 04/26/23 00:10 Nasal Cannula 2.00 04/26/23 00:01 16 148/85 (106) 93 Nasal Cannula 2.00 04/26/23 00:00 93 19 146/83 (104) 96 Nasal Cannula 2.00 04/25/23 23:55 OxyMask 3.00 04/25/23 23:50 18 131/84 (100) 95 OxyMask 3.00 04/25/23 23:40 37.1 20 146/94 (111) 99 OxyMask 4.00 04/25/23 23:40 OxyMask 4.00 04/25/23 19:25 36.5 101 16 123/90 (101) I & O 04/26/23 07:00 Intake Total 2350 ml Output Total 375 ml Balance 1975 ml Capillary Refill : Less Than 3 Seconds General Appearance: Chronically ill HEENT: PERRL/EOMI, Other (NGT in place) Respiratory: Lungs Clear, Normal Breath Sounds, No Accessory Muscle Use, No Respiratory Distress, Decreased Breath Sounds (right base) Cardiovascular: Regular Rate, Rhythm, No Murmur Gastrointestinal: soft, distended, guarding (voluntary), hernia (Ventral/incisional - incarcerated), other (incision c/d/i, CLARITA with serosanguinous fluid) Results Lab Laboratory Tests 04/25/23 19:30: White Blood Count 17.8H, Red Blood Count 4.27, Hemoglobin 13.1, Hematocrit 40, Mean Corpuscular Volume 93, Mean Corpuscular Hemoglobin 31, Mean Corpuscular H emoglobin Concent 33, Red Cell Distribution Width 12.9, Platelet Count 276, Mean Platelet Volume 11.9, Immature Granulocyte % (Auto) 1, Neutrophils (%) (Auto) 87H, Lymphocytes (%) (Auto) 7L, Monocytes (%) (Auto) 5, Eosinophils (%) (Auto) 1, Basophils (%) (Auto) 0, Neutrophils # (Auto) 15.5H, Lymphocytes # (Auto) 1.2, Monocytes # (Auto) 0.8, Eosinophils # (Auto) 0.1, Basophils # (Auto) 0.1, Immature Granulocyte # (Auto) 0.1, Neutrophils % (Manual) 75, Lymphocytes % (Manual) 5, Monocytes % (Manual) 4, Eosinophils % (Manual) 2, Band Neutrophils 14, Erythrocyte Sedimentation Rate 61H, Prothrombin Time 14.8H, INR Comment 1.1, Activated Partial Thromboplast Time 24, Sodium Level 136, Potassium Level 3.8, Chloride Level 104, Carbon Dioxide Level 19L, Anion Gap 13, Blood Urea Nitrogen 46H, Creatinine 1.77H, Estimat Glomerular Filtration Rate 29, BUN/Creatinine Ratio 26, Glucose Level 117H, Calcium Level 9.9, Corrected Calcium 10.1, Magnesium Level 2.2, Total Bilirubin 0.7, Aspartate Amino Transf (AST/SGOT) 25, Alanine Aminotransferase (ALT/SGPT) 15, Alkaline Phosphatase 69, Total Creatine Kinase 262H, Creatine Kinase MB 2.6, Myoglobin 278.0H, Troponin I < 0.028, C- Reactive Protein High Sensitivity 40.53H, B-Type Natriuretic Peptide 74.3, Total Protein 7.0, Albumin 3.8, Amylase Level 132H, Lipase 52, Free Thyroxine 0.68L, TSH [place] Testing 14.23H 04/25/23 19:38: Influenza Type A (RT-PCR) Not Detected, Influenza Type B (RT-PCR) Not Detected, SARS-CoV-2 RNA (RT-PCR) Not Detected 04/25/23 20:03: Lactic Acid Level 1.26 04/25/23 21:06: Urine Color DARK YELLOW, Urine Clarity SL CLOUDY, Urine pH 6.0, Urine Specific Biggs 1.025H, Urine Protein 2+H, Urine Glucose (UA) NEGATIVE, Urine Ketones NEGATIVE, Urine Nitrite NEGATIVE, Urine Bilirubin 1+H, Urine Urobilinogen 1.0, Urine Leukocyte Esterase 2+H, Urine RBC (Auto) TRACE-IH, Urine RBC 0-2, Urine WBC 10-25H, Urine Squamous Epithelial Cells 5-10, Urine Crystals PRESENTH, Urine Amorphous Sediment FEW HO URATESH, Urine Bacteria LARGEH, Urine Casts PRESENT, Urine Hyaline Casts 10-25H, Urine Mucus NEGATIVE, Urine Culture Indicated YES 04/26/23 03:36: White Blood Count 14.1H, Red Blood Count 4.10, Hemoglobin 12.6, Hematocrit 38, Mean Corpuscular Volume 93, Mean Corpuscular Hemoglobin 31, Mean Corpuscular Hemoglobin Concent 33, Red Cell Distribution Width 12.8, Platelet Count 230, Mean Platelet Volume 12.0, Immature Granulocyte % (Auto) 0, Neutrophils (%) (Auto) 87H, Lymphocytes (%) (Auto) 6L, Monocytes (%) (Auto) 5, Eosinophils (%) (Auto) 1, Basophils (%) (Auto) 0, Neutrophils # (Auto) 12.3H, Lymphocytes # (Auto) 0.9L, Monocytes # (Auto) 0.6, Eosinophils # (Auto) 0.2, Basophils # ( Auto) 0.0, Immature Granulocyte # (Auto) 0.1, Sodium Level 139, Potassium Level 3.7, Chloride Level 106, Carbon Dioxide Level 20L, Anion Gap 13, Blood Urea Nitrogen 44H, Creatinine 1.52H, Estimat Glomerular Filtration Rate 35, BUN/Creatinine Ratio 29, Glucose Level 117H, Lactic Acid Level 0.89, Calcium Level 9.0, Corrected Calcium 9.6, Phosphorus Level 4.1, Magnesium Level 1.9, Total Bilirubin 0.6, Aspartate Amino Transf (AST/SGOT) 74H, Alanine Aminotransferase (ALT/SGPT) 38, Alkaline Phosphatase 69, Total Creatine Kinase 134, Myoglobin 274.5H, Total Protein 5.9L, Albumin 3.2 04/26/23 11:30: Glucometer 113H Microbiology 04/25/23 Urine Culture - Preliminary, Resulted Gram Negative Bacillus 1 Assessment/Plan Assessment/Plan Assessment/Plan S/P [place] of Duodenal perforation with Modified Pato patch CAD HTN Asthma Pt will need to be NPO until Friday, at that time will do UGI with CT to check for leak. If no leak will start diet. Resume home meds. LEONEL SHEETS DO Apr 26, 2023 15:30
[2023-04-27] MEDS: LACTATED RINGERS 1,000 ML IV SCH ×3 (03:17→17:32)
[2023-04-27] MEDS: PIPERACILLIN SODIUM/TAZOBACTAM 4.5 GM in NS (IVPB) 100 ML IV SCH ×3 (03:24→18:17)
--- NOTE | 2023-04-27 03:28 | OPERATIVE REPORT ---
PREOPERATIVE DIAGNOSIS: Pneumoperitoneum. PREOPERATIVE DIAGNOSES: 1. Duodenal perforation. 2. Abscess fluid in abdomen. PROCEDURES: 1. Primary repair of duodenal perforation. 2. Modified Pato patch using falciform ligament as well as exploratory laparotomy with abdominal washout. SURGEON: Leonel Joseph DO METHODS STUDY ANALYST: None. ANESTHESIA: General endotracheal tube. SPECIMENS: None. BLOOD LOSS: Less than 30 mL FLUIDS: Per anesthesia. POSTOPERATIVE CONDITION: Stable. INDICATIONS: The patient is a 77-year-old female who came in with abdominal pain, a mildly elevated white count and had a CAT scan performed, which showed pneumoperitoneum and fluid in the abdomen. It looked like I suspected a gastric perforation, although she had had previous pyloric dilation. FINDINGS: The patient had a hole in the duodenum, it was near the pylorus, but I could not tell what it had caused it. DESCRIPTION OF PROCEDURE: After informed consent was obtained, the patient was brought to the operating room and placed on the table in supine position. She was sterilely prepped and draped in normal fashion. Elected to make a midline incision below the xiphoid process approximately 10 cm incision, carried down through the skin into subcutaneous tissue, then deepened down to subcutaneous tissue with Bovie electrocautery down to the fascia. Fascia incised with electrocautery. There was some omentum grasped the fascia with Kochers and then carefully dissected the omentum off of the abdominal wall, able to get in the abdomen free some of this up, freeing up the left side and then when I freed that up the right side, again with Kochers and Metzenbaum scissors, got into some bilious and purulent fluid. This was then suctioned up, then had to take adhesions down. The omentum was adhesed onto the liver. This was carefully taken down with Bovie electrocautery as well as some sharp dissection with scissors. Once we had freed all this up, it was then pushed the intestine, the transverse colon and the stomach down, I made sure that the NG tube was placed into the stomach and then stomach looked okay and then just past right where the pylorus was, there was a small opening and bilious fluid coming out. This was the duodenal perforation, I elected to close this primarily using 0 Vicryl and three sutures used to close the hole. I then freed up the piece of the falciform ligament and was easier to use than to bring up the omentum, so freed this up to create a modified Pato patch and then tied this down with the 0 Vicryl sutures that I left in place. At this point, then copiously irrigated with 2 or 3 liters of warm normal saline, suctioned this out. I did not see any other obvious pathology. I made a small stab incision in the right upper quadrant and brought a hemostat through and then attached a 19-Khmer Luke drain to the hemostat and pulled this through the abdominal wall. I sutured this in place with 2-0 nylon. This was placed in the right pericolic gutter as well as under the liver and then up above the top of the stomach. At this point, then elected to close the incision, closing the fascia with #1 double stranded PDS suture running from the inferior portion to the superior portion tying to itself. Copiously irrigated the midline incision with saline and then closed the skin with ze. Area was cleaned and dried. Dressing placed. The patient tolerated the procedure. She was transferred to recovery room in stable condition. Sponge and needle count correct at the end as the case. Job ID: [id number] DocumentID: [id number] Dictated Date: 04/26/2023 22:42:32 Meeting/Event Planner Date: 04/27/2023 02:49:00 Dictated By: LEONEL JOSEPH DO
[2023-04-27 04:52] LABS: BASOPHILS # (AUTO) 0.1 10^3/uL (0.0-0.1); BASOPHILS % (AUTO) 1 % (0-10); EOSINOPHILS # (AUTO) 0.6 10^3/uL (0.0-0.3); EOSINOPHILS % (AUTO) 7 % (0-10); HEMATOCRIT 32 % (35-52); HEMOGLOBIN 10.4 g/dL (11.5-16.0); LYMPHOCYTES % (AUTO) 11 % (12-44); MEAN CORPUSCULAR HEMOGLOBIN 31 pg (25-34); MEAN CORPUSCULAR HGB CONC 32 g/dL (32-36); MEAN CORPUSCULAR VOLUME 95 fL (80-99); MEAN PLATELET VOLUME 11.8 fL (9.0-12.2); MONOCYTES # (AUTO) 0.7 10^3/uL (0.0-1.0); MONOCYTES % (AUTO) 8 % (0-12); NEUTROPHILS # (AUTO) 6.8 10^3/uL (1.8-7.8); NEUTROPHILS % (AUTO) 74 % (42-75); PLATELET COUNT 212 10^3/uL (130-400); WHITE BLOOD COUNT 9.2 10^3/uL (4.3-11.0)
[2023-04-27] MEDS: morphine INJ 4 MG/ML 1 ML (VIAL/SYRINGE) IVP PRN ×3 (05:02→17:31)
[2023-04-27 05:06] LABS: ALBUMIN 2.6 GM/DL (3.2-4.5); BILIRUBIN,TOTAL 0.4 MG/DL (0.1-1.0); CALCIUM 8.3 MG/DL (8.5-10.1); CREATININE SERUM 1.22 MG/DL (0.60-1.30); MAGNESIUM 2.3 MG/DL (1.6-2.4); PHOSPHORUS 3.3 MG/DL (2.3-4.7); POTASSIUM 3.8 MMOL/L (3.6-5.0); TOTAL PROTEIN 5.1 GM/DL (6.4-8.2)
[2023-04-27] MEDS: POTASSIUM CL 10MEQ/50ML IVPB 50 ML IV SCH ×3 (05:55→07:13)
[2023-04-27] MEDS: KCL 20 MEQ TAB (K-DUR) PO SCH (06:00)
[2023-04-27] MEDS: MAGNESIUM 1 GM/100 ML IVPB 100 ML IV SCH (06:00)
[2023-04-27] MEDS: FLUCONAZOLE 200 MG/100 ML 100 ML IV SCH (09:17)
[2023-04-27] MEDS: PANTOPRAZOLE 40 MG (PROTONIX) VIAL IV SCH ×2 (09:17→19:18)
[2023-04-27] MEDS: FLUTICASONE/VILANTEROL 100 MCG 14'S (BREO) IH SCH (11:22)
[2023-04-27] MEDS ORDERED: DEXTROSE 50% 50 ML (IMS) SYR IV ONE ×2 (12:00→18:00)
[2023-04-27 12:30] VITALS: BP 128/92
--- NOTE | 2023-04-27 13:40 | Progress Note - Surgery ---
Subjective Time Seen by a Provider: 11:08 Subjective/Events-last exam Pt seen and examined, states minimal abdominal pain. Her main complaint is that her throat is sore and she wants to at least drink something. Review of Systems Pulmonary: No Dyspnea, No Cough Cardiovascular: No: Chest Pain, Palpitations Gastrointestinal: Abdominal Pain; No: Nausea, Vomiting Focused Exam Lactate Level 04/25/23 20:03: Lactic Acid Level 1.26 04/26/23 03:36: Lactic Acid Level 0.89 Objective Exam Vital Signs Date Time Temp Pulse Resp B/P (MAP) Pulse Ox O2 Delivery O2 Flow Rate FiO2 04/27/23 12:30 36.1 80 18 128/92 (104) 99 Nasal Cannula 2.00 04/27/23 12:05 94 Nasal Cannula 2.00 04/27/23 12:00 81 17 131/80 (91) Nasal Cannula 2.00 04/27/23 12:00 37.0 04/27/23 11:23 100 Nasal Cannula 1.00 04/27/23 11:00 69 11 121/60 (82) 100 Nasal Cannula 2.00 04/27/23 10:00 75 22 112/66 (86) 87 Nasal Cannula 2.00 04/27/23 09:00 76 10 97/57 (72) Nasal Cannula 2.00 04/27/23 08:17 95 Nasal Cannula 2.00 04/27/23 08:00 36.8 04/27/23 08:00 77 11 112/72 (100) 95 Nasal Cannula 2.00 04/27/23 07:00 75 11 113/55 (89) 95 Nasal Cannula 2.00 04/27/23 07:00 75 04/27/23 06:00 83 26 130/82 (98) Nasal Cannula 2.00 04/27/23 05:00 79 29 133/87 (102) 94 Nasal Cannula 2.00 04/27/23 04:00 79 13 114/69 (84) 94 Nasal Cannula 2.00 04/27/23 04:00 94 Nasal Cannula 2.00 04/27/23 03:00 71 16 130/67 (88) 95 Nasal Cannula 2.00 04/27/23 02:00 74 19 128/72 (90) 94 Nasal Cannula 2.00 04/27/23 01:00 82 16 106/55 (72) 94 Nasal Cannula 2.00 04/27/23 01:00 82 04/27/23 00:00 75 11 109/56 (73) 94 Nasal Cannula 2.00 04/26/23 23:59 94 Nasal Cannula 2.00 04/26/23 23:00 70 11 111/54 (73) 95 Nasal Cannula 2.00 04/26/23 22:00 76 26 108/56 (73) 95 Nasal Cannula 2.00 04/26/23 21:00 72 12 110/62 (78) 95 Nasal Cannula 2.00 04/26/23 20:00 95 Nasal Cannula 2.00 04/26/23 20:00 70 12 119/70 (86) 95 Nasal Cannula 2.00 04/26/23 19:10 36.1 04/26/23 19:00 75 04/26/23 19:00 86 22 98/55 (69) 95 Nasal Cannula 2.00 04/26/23 18:41 94 Nasal Cannula 2.00 04/26/23 18:00 82 9 106/62 (81) 95 Nasal Cannula 2.00 04/26/23 17:00 77 15 111/72 (95) 94 Nasal Cannula 2.00 04/26/23 16:00 93 Nasal Cannula 2.00 04/26/23 16:00 71 9 103/59 (79) 95 Nasal Cannula 2.00 04/26/23 15:53 36.3 04/26/23 15:00 74 11 92/48 (76) 93 Nasal Cannula 2.00 04/26/23 14:39 92 Nasal Cannula 2.00 04/26/23 14:00 69 8 106/63 (85) 96 Nasal Cannula 2.00 I & O 04/27/23 07:00 Intake Total 5353 ml Output Total 1245 ml Balance 4108 ml Capillary Refill : Less Than 3 Seconds General Appearance: No Apparent Distress, Chronically ill HEENT: PERRL/EOMI, Other (NGT in place) Respiratory: Lungs Clear, Normal Breath Sounds, No Accessory Muscle Use, No Respiratory Distress, Decreased Breath Sounds (right base) Cardiovascular: Regular Rate, Rhythm, No Murmur Gastrointestinal: soft, tenderness (mostly at mildine inicisioin), hernia (Ventral/incisional - incarcerated), other (incision c/d/i, CLARITA with serosanguinous fluid) Results Lab Laboratory Tests 04/26/23 18:37: Glucometer 81 04/27/23 00:13: Glucometer 82 04/27/23 04:31: White Blood Count 9.2, Red Blood Count 3.39L, Hemoglobin 10.4L, Hematocrit 32L, Mean Corpuscular Volume 95, Mean Corpuscular Hemoglobin 31, Mean Corpuscular Hemoglobin Concent 32, Red Cell Distribution Width 13.0, Platelet Count 212, Mean Platelet Volume 11.8, Immature Granulocyte % (Auto) 0, Neutrophils (%) (Auto) 74, Lymphocytes (%) (Auto) 11L, Monocytes (%) (Auto) 8, Eosinophils (%) (Auto) 7, Basophils (%) (Auto) 1, Neutrophils # (Auto) 6.8, Lymphocytes # (Auto) 1.0, Monocytes # (Auto) 0.7, Eosinophils # (Auto) 0.6H, Basophils # (Auto) 0.1, Immature Granulocyte # (Auto) 0.0, Sodium Level 137, Potassium Level 3.8, Chloride Level 109H, Carbon Dioxide Level 18L, Anion Gap 10, Blood Urea Nitrogen 34H, Creatinine 1.22, Estimat Glomerular Filtration Rate 46, BUN/Creatinine Ratio 28, Glucose Level 73, Calcium Level 8.3L, Corrected Calcium 9.4, Phosphorus Level 3.3, Magnesium Level 2.3, Total Bilirubin 0.4, Aspartate Amino Transf (AST/SGOT) 33, Alanine Aminotransferase (ALT/SGPT) 25, Alkaline Phosphatase 68, Total Protein 5.1L, Albumin 2.6L 04/27/23 11:54: Glucometer 61L Microbiology 04/26/23 MRSA Screen - Final, Complete MRSA not isolated 04/25/23 Urine Culture - Final, Complete Escherichia coli Assessment/Plan Assessment/Plan Assessment/Plan S/P [place] of Duodenal perforation with Modified Pato patch CAD HTN Asthma Will continue NPO until tomorrow and at that time will do UGI with CT to check for leak. If no leak will start diet. Resume home meds. LEONEL SHEETS DO Apr 27, 2023 13:40
[2023-04-27 15:38] VITALS: BP 140/72
[2023-04-27] MEDS ORDERED: DEXTROSE 50% 50 ML (IMS) SYR IV PRN (18:00)
[2023-04-27] MEDS: D5 LR IV SOLUTION 1,000 ML IV SCH (18:17)
[2023-04-27 19:24] VITALS: BP 136/67
[2023-04-27 23:33] VITALS: BP 154/71
[2023-04-28] MEDS: PIPERACILLIN SODIUM/TAZOBACTAM 4.5 GM in NS (IVPB) 100 ML IV SCH ×3 (02:58→18:15)
[2023-04-28] MEDS: D5 LR IV SOLUTION 1,000 ML IV SCH ×4 (03:00→20:12)
[2023-04-28 03:06] VITALS: BP 156/74
[2023-04-28 06:12] LABS: BASOPHILS % (AUTO) 1 % (0-10); EOSINOPHILS # (AUTO) 0.6 10^3/uL (0.0-0.3); EOSINOPHILS % (AUTO) 7 % (0-10); HEMATOCRIT 30 % (35-52); HEMOGLOBIN 9.8 g/dL (11.5-16.0); LYMPHOCYTES # (AUTO) 0.9 10^3/uL (1.0-4.0); LYMPHOCYTES % (AUTO) 12 % (12-44); MEAN CORPUSCULAR HEMOGLOBIN 30 pg (25-34); MEAN CORPUSCULAR HGB CONC 32 g/dL (32-36); MEAN CORPUSCULAR VOLUME 94 fL (80-99); MEAN PLATELET VOLUME 11.7 fL (9.0-12.2); MONOCYTES # (AUTO) 0.7 10^3/uL (0.0-1.0); MONOCYTES % (AUTO) 9 % (0-12); NEUTROPHILS # (AUTO) 5.4 10^3/uL (1.8-7.8); NEUTROPHILS % (AUTO) 71 % (42-75); PLATELET COUNT 220 10^3/uL (130-400); WHITE BLOOD COUNT 7.6 10^3/uL (4.3-11.0)
[2023-04-28 06:15] LABS: ALBUMIN 2.5 GM/DL (3.2-4.5); POTASSIUM 3.4 MMOL/L (3.6-5.0)
[2023-04-28 06:16] LABS: CALCIUM 8.4 MG/DL (8.5-10.1)
[2023-04-28 06:18] LABS: TOTAL PROTEIN 5.1 GM/DL (6.4-8.2)
[2023-04-28 06:19] LABS: BILIRUBIN,TOTAL 0.4 MG/DL (0.1-1.0)
[2023-04-28 06:21] LABS: CREATININE SERUM 0.93 MG/DL (0.60-1.30); PHOSPHORUS 2.3 MG/DL (2.3-4.7)
[2023-04-28 06:25] LABS: MAGNESIUM 1.5 MG/DL (1.6-2.4)
[2023-04-28 07:29] VITALS: BP 161/75
[2023-04-28] MEDS: FLUTICASONE/VILANTEROL 100 MCG 14'S (BREO) IH SCH (08:23)
[2023-04-28] MEDS: FLUCONAZOLE 200 MG/100 ML 100 ML IV SCH (08:29)
[2023-04-28] MEDS: PANTOPRAZOLE 40 MG (PROTONIX) VIAL IV SCH ×2 (08:29→20:12)
[2023-04-28] MEDS ORDERED: DIATRIZOATE MEGLUM/SODIUM 37% 120 ML (GASTROGRAFIN) PO ONE (09:45)
--- NOTE | 2023-04-28 11:08 | Diagnostic Imaging Report ---
PROCEDURE: CT abdomen without contrast. TECHNIQUE: Multiple contiguous axial images were obtained through the abdomen without the use of intravenous contrast. Auto Exposure Controls were utilized during the CT exam to meet ALARA standards for radiation dose reduction. INDICATION: A recent duodenal perforation, status post surgery. Study is performed to evaluate for postoperative leak. Gastrografin contrast and water was injected through the patient's indwelling nasogastric tube. Axial imaging through the abdomen was then performed. There is a small right pleural effusion. There is a residual pneumoperitoneum present. There is some residual perihepatic ascites as well. Contrast is seen within the stomach. Contrast is seen within the duodenum as well. No definite extravasation of contrast is identified. Patient does have an NG tube in place as well as a right upper quadrant surgical drain. Liver is unremarkable. Gallbladder surgically absent. The pancreas and spleen are unremarkable. No adrenal mass is detected. Kidneys are unremarkable apart from a cortical cyst in the lower pole of the left kidney. Bowel loops appear nonobstructed. There are diverticula involving the descending and sigmoid colon. Aorta is calcified but nonaneurysmal. There is an IVC filter in place. IMPRESSION: 1. Small right pleural effusion and right basilar atelectasis. 2. A residual pneumoperitoneum from recent surgery as well as perihepatic ascites. 3. No definite evidence of duodenal leak or contrast extravasation. Dictated by: Dictated on workstation # [id number]
[2023-04-28 11:14] VITALS: BP 189/82
[2023-04-28] MEDS ORDERED: ENALAPRILAT 2.5 MG/2 ML (VASOTEC) VIAL IV ONE (11:30)
[2023-04-28] MEDS ORDERED: MTP25TSR PO (13:57)
[2023-04-28] MEDS ORDERED: PANT40TA52 PO (13:57)
[2023-04-28] MEDS ORDERED: GEMF600T88 PO (13:57)
[2023-04-28] MEDS ORDERED: CALC-1102 PO (13:59)
[2023-04-28] MEDS ORDERED: CALC-1049 PO (14:00)
[2023-04-28] MEDS ORDERED: NAPR220T66 PO (14:01)
[2023-04-28] MEDS ORDERED: ASPI-1238 PO (14:01)
[2023-04-28] MEDS ORDERED: ACET-3075 PO (14:01)
[2023-04-28 15:44] VITALS: BP 133/79
--- NOTE | 2023-04-28 16:15 | Progress Note - Surgery ---
Subjective Time Seen by a Provider: 15:33 Subjective/Events-last exam Pt seen and examined, states she is feeling good. Very minimal abdominal pain. Review of Systems Pulmonary: No Dyspnea, No Cough Cardiovascular: No: Chest Pain, Palpitations Gastrointestinal: No: Nausea, Vomiting, Abdominal Pain Focused Exam Lactate Level 04/25/23 20:03: Lactic Acid Level 1.26 04/26/23 03:36: Lactic Acid Level 0.89 Objective Exam Vital Signs Date Time Temp Pulse Resp B/P (MAP) Pulse Ox O2 Delivery O2 Flow Rate FiO2 04/28/23 15:44 36.6 68 18 133/79 (97) 97 Nasal Cannula 2.00 04/28/23 11:14 36.7 67 18 189/82 (117) 100 Nasal Cannula 2.00 04/28/23 08:24 92 Nasal Cannula 2.00 04/28/23 08:00 Nasal Cannula 2.00 04/28/23 07:29 36.7 74 16 161/75 (103) 93 Nasal Cannula 2.00 04/28/23 03:06 36.4 76 18 156/74 (101) 94 Nasal Cannula 2.00 04/27/23 23:33 36.0 79 20 154/71 (98) 98 Nasal Cannula 2.00 2.00 04/27/23 19:26 96 Nasal Cannula 2.00 04/27/23 19:24 36.7 81 20 136/67 (90) 96 Nasal Cannula 2.00 I & O 04/28/23 07:00 Intake Total 2450 ml Output Total 1255 ml Balance 1195 ml Capillary Refill : Less Than 3 Seconds General Appearance: No Apparent Distress, Chronically ill HEENT: PERRL/EOMI, Other (NGT in place) Respiratory: Lungs Clear, Normal Breath Sounds, No Accessory Muscle Use, No Respiratory Distress, Decreased Breath Sounds (right base) Cardiovascular: Regular Rate, Rhythm, No Murmur Gastrointestinal: soft, tenderness (mostly at mildine inicisioin), hernia (Ventral/incisional - incarcerated), other (incision c/d/i, CLARITA with serosanguinous fluid) Results Lab Laboratory Tests 04/27/23 17:44: Glucometer 57*L 04/27/23 19:26: Glucometer 92 04/27/23 22:33: Glucometer 108 04/28/23 02:37: Glucometer 134H 04/28/23 05:02: White Blood Count 7.6, Red Blood Count 3.25L, Hemoglobin 9.8L, Hematocrit 30L, Mean Corpuscular Volume 94, Mean Corpuscular Hemoglobin 30, Mean Corpuscular Hemoglobin Concent 32, Red Cell Distribution Width 12.8, Platelet Count 220, Mean Platelet Volume 11.7, Immature Granulocyte % (Auto) 1, Neutrophils (%) (Auto) 71, Lymphocytes (%) (Auto) 12, Monocytes (%) (Auto) 9, Eosinophils (%) (A uto) 7, Basophils (%) (Auto) 1, Neutrophils # (Auto) 5.4, Lymphocytes # (Auto) 0.9L, Monocytes # (Auto) 0.7, Eosinophils # (Auto) 0.6H, Basophils # (Auto) 0.0, Immature Granulocyte # (Auto) 0.0, Sodium Level 142, Potassium Level 3.4L, Chloride Level 111H, Carbon Dioxide Level 21, Anion Gap 10, Blood Urea Nitrogen 19H, Creatinine 0.93, Estimat Glomerular Filtration Rate 64, BUN/Creatinine Ratio 20, Glucose Level 129H, Calcium Level 8.4L, Corrected Calcium 9.6, Phosphorus Level 2.3, Magnesium Level 1.5L, Total Bilirubin 0.4, Aspartate Amino Transf (AST/SGOT) 26, Alanine Aminotransferase (ALT/SGPT) 21, Alkaline Phosphatase 64, Total Protein 5.1L, Albumin 2.5L 04/28/23 05:52: Glucometer 135H 04/28/23 11:17: Glucometer 137H Microbiology 04/26/23 MRSA Screen - Final, Complete MRSA not isolated 04/26/23 Blood Culture - Preliminary, Resulted No growth 04/25/23 Urine Culture - Final, Complete Escherichia coli Assessment/Plan Assessment/Plan Assessment/Plan S/P [place] of Duodenal perforation with Modified Pato patch CAD HTN Asthma UGI with CT to check for leak; did not show any extravasation. Will start clears. PT/OT consults and SS to see about possible rehab. Resume home meds. D/C portillo and encourage IS use and ambulation. LEONEL SHEETS DO Apr 28, 2023 16:15
[2023-04-28 20:25] VITALS: BP 152/72
[2023-04-28 23:13] VITALS: BP 158/76
[2023-04-29] MEDS: PIPERACILLIN SODIUM/TAZOBACTAM 4.5 GM in NS (IVPB) 100 ML IV SCH ×3 (02:38→18:25)
[2023-04-29 03:09] VITALS: BP 174/81
[2023-04-29 05:49] LABS: BASOPHILS % (AUTO) 1 % (0-10); EOSINOPHILS # (AUTO) 0.4 10^3/uL (0.0-0.3); EOSINOPHILS % (AUTO) 6 % (0-10); HEMATOCRIT 30 % (35-52); HEMOGLOBIN 10.1 g/dL (11.5-16.0); LYMPHOCYTES # (AUTO) 1.1 10^3/uL (1.0-4.0); LYMPHOCYTES % (AUTO) 15 % (12-44); MEAN CORPUSCULAR HEMOGLOBIN 31 pg (25-34); MEAN CORPUSCULAR HGB CONC 33 g/dL (32-36); MEAN CORPUSCULAR VOLUME 93 fL (80-99); MEAN PLATELET VOLUME 11.5 fL (9.0-12.2); MONOCYTES # (AUTO) 0.7 10^3/uL (0.0-1.0); MONOCYTES % (AUTO) 10 % (0-12); NEUTROPHILS # (AUTO) 4.9 10^3/uL (1.8-7.8); NEUTROPHILS % (AUTO) 68 % (42-75); PLATELET COUNT 230 10^3/uL (130-400); WHITE BLOOD COUNT 7.2 10^3/uL (4.3-11.0)
[2023-04-29] MEDS: D5 LR IV SOLUTION 1,000 ML IV SCH ×3 (06:15→23:03)
[2023-04-29 06:17] LABS: ALBUMIN 2.5 GM/DL (3.2-4.5); BILIRUBIN,TOTAL 0.5 MG/DL (0.1-1.0); CALCIUM 8.1 MG/DL (8.5-10.1); CREATININE SERUM 0.79 MG/DL (0.60-1.30); MAGNESIUM 1.4 MG/DL (1.6-2.4); PHOSPHORUS 2.1 MG/DL (2.3-4.7); POTASSIUM 2.7 MMOL/L (3.6-5.0); TOTAL PROTEIN 4.9 GM/DL (6.4-8.2)
[2023-04-29 07:48] VITALS: BP 164/92
[2023-04-29] MEDS: FLUTICASONE/VILANTEROL 100 MCG 14'S (BREO) IH SCH (07:50)
--- NOTE | 2023-04-29 08:27 | Progress Note ---
Progress Note Progress Notes/Assess & Plan Date Seen 04/29/23 Time Seen by Provider: 08:12 Assessment & Plan Patient is seen this morning and she is currently sitting up and drinking a little bit of a powerade. She states that she does not like powerade and would rather have a pedialyte. Her only other concern is her at home medication for her thyroid. She seems somewhat quieter than she was the day prior, but starts to liven up as I talk to her more. She says that she believes she did well and clear liquids the day prior, and is hoping that she can get moved to acute nursing so her son can go on vacation. She has no complaints of abdomen pain, heart palpitations, or feeling short of breath. She has a wet cough this morning, that I am unsure if she has had prior. The plan is to move her to liquids today and see how she how she reacts to those. We will also plan to remove her NG tube today as it was clamped off the day prior. Overall she is doing alright and will continue to be monitored over the next couples day and will continue to look for acute nursing facility to place her in until her son gets back from his vacation on Friday. Focused Exam Respiratory: Chest Non Tender, Lungs Clear; No Crackles, No Decreased Breath Sounds, No Respiratory Distress Cardiovascular: Regular Rate, Rhythm, No Edema, No Gallop, No Murmur; No Diastolic Murmur, No Systolic Murmur, No Friction Rub Peripheral Pulses: 3+ Carotid (R), 3+ Carotid (L) Skin: No diaphoresis, No damp, No ulcerations Supervisory-Addendum Brief Verification & Attestation Participated in pt care: history, MDM, physical Personally performed: exam, history, MDM, supervision of care Care discussed with: Medical Student Procedures: n/a Results interpretation: Verified all documentation Please, disregard. Student made a mistake on which note to write on. AMRITA CRAWFORD Apr 29, 2023 08:27
[2023-04-29] MEDS: PANTOPRAZOLE 40 MG (PROTONIX) VIAL IV SCH ×2 (08:36→19:51)
[2023-04-29] MEDS: FLUCONAZOLE 200 MG/100 ML 100 ML IV SCH (08:36)
--- NOTE | 2023-04-29 11:35 | Physical Therapy Evaluation ---
PT Evaluation-General Medical Diagnosis Admission Date Apr 26, 2023 at 00:40 Medical Diagnosis: small intesting perforation Onset Date: Apr 26, 2023 Therapy Diagnosis Therapy Diagnosis: generalized weakness/debility Height/Weight Height (Feet): 5 Height (Inches): 1.00 Weight (Pounds): 161 Weight (Ounces): 0.0 Precautions Precautions/Isolations: Fall Prevention, Standard Precautions Weight Bear Status Right Lower Extremity: Right Weight Bearing/Tolerated Left Lower Extremity: Left Weight Bearing/Tolerated Referral Physician: Opal Reason for Referral: Evaluation/Treatment Medical History Pertinent Medical History: CABG, CAD, HTN Additional Medical History MS Current History EMS secondary to abdominal pain Reviewed History: Yes Social History Home: Single Level Current Living Status: Alone Entry Into Home: Stairs Without Railing PT Steps Into Home: 2 Prior Prior Level of Function SCALE: Activities may be completed with or without assistive devices. 5-Kuqybzxvxi-pvlhuwg completes the activity by him/herself with no assistance from a helper. 5-Set-up or Clean-up Assistance-helper sets up or cleans up; patient completes activity. [place] assists only prior to or following the activity. 4-Supervision or Touching Assistance-helper provides verbal cues and/or touching/steadying and/or contact guard assistance as patient completes activity. Assistance may be provided throughout the activity or intermittently. 3-Partial/Moderate Assistance-helper does LESS THAN HALF the effort. [place] lifts, holds or supports trunk or limbs, but provides less than half the effort. 2-Substantial/Maximal Assistance-helper does MORE THAN HALF the effort. [place] lifts or holds trunk or limbs and provides more than half the effort. 2-Axckdvtrq-bmohks does ALL the effort. Patient does none of the effort to co mplete the activity. Or, the assistance of 2 or more helpers is required for the patient to complete the activity. If activity was not attempted, code reason: 7-Patient Refused. 9-Not Applicable-not attempted and the patient did not perform the activity before the current illness, exacerbation or injury. 10-Not Attempted due to Environmental Limitations-(lack of equipment, weather restraints, etc.). 88-Not Attempted due to Medical Conditions or Safety Concerns. Bed Mobility: 6 Transfers (B,C,W/C): 6 Gait: 6 Stairs: 6 Indoor Mobility (Ambulation): Independent Stairs: Independent Prior Devices Use: Other-see list below Prior Device Use: cane PT Evaluation-Current Subjective Patient agrees to PT. Objective Patient Orientation: Person, Time, Situation Attachments: NG Tube, Oxygen, IV ROM/Strength ROM Lower Extremities bilateral LE WFL Strength Lower Extremities 3+/5 grossly bilateral LE all planes Integumentary/Posture Bladder Incontinence: Yes Posture WFL Neuromuscular (Tone, Coordination, Reflexes) grossly intact Sensory Vision: Functional Hearing: Impaired Transfers Lying to Sitting/Side of Bed(Q: 3 Sit to Stand (QC): 3 Chair/Xiy-ja-Wjawd Xfer(QC): 3 Toilet Transfer (QC): 3 Gait Mode of Locomotion: Walk Anticipated Mode of Locomotion: Walk Walk 10 feet (QC): 3 Walk 50 ft with 2 Turns(QC): 3 Walk 150 ft (QC): 88 Distance: 120' Gait Assistive Device: FWW Comments/Gait Description very slow gait sequence/NBOS Balance Sitting Static: Normal Sitting Dynamic: Normal Standing Static: Fair Standing Dynamic: Fair Assessment/Needs Patient will benefit from skilled PT to address functional strength and mobility to improve current LOF. Patient currently requires minimal assist with all mobility for safety and requires dependent assist to cleanse and change due to incontinent urine. Rehab Potential: Fair PT Rubber Cutter Goals Rubber Cutter Goals PT Alf Goals Time Frame: May 17, 2023 Roll Left & Right (QC): 6 Sit to Lying (QC): 6 Lying-Sitting on Side/Bed(QC): 6 Sit to Stand (QC): 6 Chair/Bsf-if-Xzjdi Xfer(QC): 6 Toilet Transfer (QC): 6 Walk 10 feet (QC): 5 Walk 50ft with 2 Turns (QC): 5 Walk 150 ft (QC): 5 Walking 10ft on Uneven Surface: 5 1 Step (curb) (QC): 4 4 Steps (QC): 4 PT Plan Problem List Problem List: Activity Tolerance, Functional Strength, Safety, Balance, Gait, Transfer, Bed Mobility Treatment/Plan Treatment Plan: Continue Plan of Care Treatment Plan: Bed Mobility, Education, Functional Activity Melinda, Functional Strength, Gait, Safety, Therapeutic Exercise, Transfers Treatment Duration: May 17, 2023 Frequency: 6 times per week Estimated Hrs Per Day: .25 hour per day Patient and/or Family Agrees t: Yes Time Time In: 1010 Time Out: 1034 DATE: Apr 29, 2023 Total Billed Treatment Time: 24 Total Billed Treatment 1 visit EVModC 10 min FA 14 min CANDY ORO PT Apr 29, 2023 11:35
[2023-04-29 11:49] VITALS: BP 176/91
--- NOTE | 2023-04-29 12:01 | Progress Note - Surgery ---
Subjective Time Seen by a Provider: 11:14 Subjective/Events-last exam Pt seen and examined, her main complaint is that she cannot drink Powerade. She is requesting Pedialyte. Abdominal pain is minimal, denied BM today. Urinating without difficulty after portillo removal. Review of Systems Pulmonary: No Dyspnea, No Cough Cardiovascular: No: Chest Pain, Palpitations Gastrointestinal: Abdominal Pain; No: Nausea, Vomiting Objective Exam Vital Signs Date Time Temp Pulse Resp B/P (MAP) Pulse Ox O2 Delivery O2 Flow Rate FiO2 04/29/23 11:49 36.4 61 20 176/91 (119) 94 Room Air 04/29/23 08:15 95 Nasal Cannula 2.00 04/29/23 07:50 95 Nasal Cannula 2.00 04/29/23 07:48 36.5 64 20 164/92 (116) 96 Nasal Cannula 2.00 04/29/23 03:09 36.3 63 16 174/81 (112) 98 Nasal Cannula 2.00 2.00 04/28/23 23:13 36.3 63 16 158/76 (103) 98 Nasal Cannula 2.00 2.00 04/28/23 20:25 36.7 68 19 152/72 (98) 99 Nasal Cannula 2.00 04/28/23 20:16 Nasal Cannula 2.00 04/28/23 20:15 96 Nasal Cannula 2.00 04/28/23 15:44 36.6 68 18 133/79 (97) 97 Nasal Cannula 2.00 I & O 04/29/23 07:00 Intake Total 2520 ml Output Total 2500 ml Balance 20 ml Capillary Refill : Less Than 3 Seconds General Appearance: No Apparent Distress, Chronically ill HEENT: PERRL/EOMI, Other (NGT in place) Respiratory: Chest Non Tender, Lungs Clear, Decreased Breath Sounds (right base) Cardiovascular: Regular Rate, Rhythm, No Murmur; No Diastolic Murmur, No S ystolic Murmur, No Friction Rub Peripheral Pulses: 3+ Carotid (R), 3+ Carotid (L) Gastrointestinal: soft, tenderness (mostly at mildine inicisioin), hernia (Ventral/incisional - incarcerated), other (incision c/d/i, CLARITA with serosanguinous fluid) Results Lab Laboratory Tests 04/28/23 17:18: Glucometer 157H 04/28/23 23:17: Glucometer 124H 04/29/23 05:00: White Blood Count 7.2, Red Blood Count 3.27L, Hemoglobin 10.1L, Hematocrit 30L, Mean Corpuscular Volume 93, Mean Corpuscular Hemoglobin 31, Mean Corpuscular Hemoglobin Concent 33, Red Cell Distribution Width 12.4, Platelet Count 230, Mean Platelet Volume 11.5, Immature Granulocyte % (Auto) 1, Neutrophils (%) (Auto) 68, Lymphocytes (%) (Auto) 15, Monocytes (%) (Auto) 10, Eosinophils (%) (Auto) 6, Basophils (%) (Auto) 1, Neutrophils # (Auto) 4.9, Lymphocytes # (Auto) 1.1, Monocytes # (Auto) 0.7, Eosinophils # (Auto) 0.4H, Basophils # (Auto) 0.0, Immature Granulocyte # (Auto) 0.1, Sodium Level 140, Potassium Level 2.7L, Chloride Level 109H, Carbon Dioxide Level 24, Anion Gap 7, Blood Urea Nitrogen 9, Creatinine 0.79, Estimat Glomerular Filtration Rate 77, BUN/Creatinine Ratio 11, Glucose Level 131H, Calcium Level 8.1L, Corrected Calcium 9.3, Phosphorus Level 2.1L, Magnesium Level 1.4L, Total Bilirubin 0.5, Aspartate Amino Transf (AST/SGOT) 20, Alanine Aminotransferase (ALT/SGPT) 18, Alkaline Phosphatase 58, Total Protein 4.9L, Albumin 2.5L 04/29/23 11:47: Glucometer 132H Microbiology 04/26/23 MRSA Screen - Final, Complete MRSA not isolated 04/26/23 Blood Culture - Preliminary, Resulted No growth 04/25/23 Urine Culture - Final, Complete Escherichia coli Assessment/Plan Assessment/Plan Assessment/Plan S/P [place] of Duodenal perforation with Modified Pato patch CAD HTN Asthma Will advance to full liquid diet, check NGT residual and if less than 300ml can D/C. Pt looks like she will meet rehab criteria. Resume home meds and can take the ones she brought. Encourage IS use and ambulation. LEONEL SHEETS DO Apr 29, 2023 12:01
[2023-04-29] MEDS ORDERED: NITROGLYCERIN 0.4 MG SL TABS BTL 25'S SL PRN (13:30)
--- NOTE | 2023-04-29 14:26 | Consultation - Hospitalist ---
HPI History of Present Illness: HPI/Chief Complaint Pt is a 77yoCF with a PMH of MS, HTN, HLD who presented to the ER on 04/25 due to abd pain. She was found to have free air in the abd and taken emergently for an ex lap where repair of a duodenal perforation was performed. She has been admitted since then and started on clears and doing well. I have been consulted for medical management. She repors she is doing well and was told she could advance to full liquid but still has clears. Her friend is at bedside and states that she called her this morning and was confused so she wanted me to know. Patient has no complaints for me and is hopeful to restart her medicines. I reviewed all her medicines and restarted them in the room per her schedule. She reports that she was up with PT this morning and quite weak from her baseline. She states she normally does well with her functional status but has noticed that she has fallen a couple of times more recently and attributed it to her MS. Source: patient Exam Limitations: no limitations Date Seen 04/29/23 Attending Physician Aric Byrnes MD PCP Admitting Physician: Leonel Sheets DO Attending Physician: Leonel Sheets DO Referring Physician Date of Admission Apr 26, 2023 at 00:40 Home Medications & Allergies Home Medications Reviewed patient Home Medication Reconciliation performed by pharmacy medication reconciliations certified dialysis technician and/or nursing. Patients Allergies have been reviewed. Allergies Allergies Coded Allergies ciprofloxacin (Verified Allergy, Severe, 10/03/13) gluten (Unverified Allergy, Severe, 03/23/15) Past Xosagtu-Adwucy-Iwuiww Hx Patient Social History Smoking Status: Former Smoker Alcohol Use?: No Immunizations Up To Date Date of Influenza Vaccine: Aug 17, 2013 First/Initial COVID19 Vaccinat: YES Second COVID19 Vaccination Graeme: YES Tetanus Booster (TDap): Unknown Hepatitis A: No Hepatitis B: No PED Vaccines UTD: No Date of Pneumonia Vaccine: Jun 17, 2012 Seasonal Allergies Seasonal Allergies: Yes Current Status Communicates: Verbally Primary Language: Colombian Preferred Spoken Language: Colombian Is interpretation needed?: No Past Medical History Surgeries: Adenoidectomy, Bowel Surgery, CABG, Coronary Stent, Eye Surgery, Gallbladder, Orthopedic, Thyroidectomy, Tonsillectomy, Tubal Ligation Asthma Currently Using CPAP: No Currently Using BIPAP: No Coronary Artery Disease, Deep Vein Thrombosis, High Cholesterol, Hypertension Multiple Sclerosis 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 Sexually Transmitted Disease: No HIV/AIDS: No UTI-Chronic Crohns Disease, Hiatal Hernia Arthritis Hypothyroidsim Cataract Loss of Vision: Bilateral Hearing Impairment: Denies Skin Did You Recieve Any Treatments: Yes What Type of Treatment Did You: Surgical Intervention Anxiety, Depression Blood Disorders: No Adverse Reaction/Blood Tranf: No (HAS HAD BLOOD WITH NO REACTION) Family Medical History Cancer 03 MOTHER (PANCREATIC CA) Family history: Asthma 09 BROTHER (ASTHMA) Family history: Cardiovascular disease 03 FATHER ([place]) Family history: Hypertension 09 BROTHER 09 BROTHER Family history: Thyroid disorder 09 BROTHER Heart disease 03 FATHER Hypercholesterolemia 09 BROTHER Myocardial infarction 03 FATHER Cancer (Mother of pancreatic cancer) PAST SURGICAL HISTORY: -EGD'S AND COLONOSCOPIES--MOST RECENT ONE 09/09/[address] KABA CARDIAC CATH 07/18/[address] JOSEPH: CONCLUSION: 1. 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 Attempt for intervention failed to cross the lesion with a balloon in the mid right coronary artery after using multiple guides. Procedure was aborted and arrangement for evaluation at a tertiary care center 3. Normal left ventricular end-diastolic pressure DISCUSSION AND RECOMMENDATION: Patient was started on aspirin and Plavix and will arrange for evaluation for tertiary care center Review of Systems Constitutional: see HPI Physical Exam Physical Exam Vital Signs Vital Signs - First Documented 04/25/23 04/25/23 19:25 23:40 Temp 36.5 Pulse 101 Resp 16 B/P (MAP) 123/90 (101) Pulse Ox 99 O2 Delivery OxyMask O2 Flow Rate 4.00 Capillary Refill : Less Than 3 Seconds Height, Weight, BMI Height: 5'1.00" Weight: 161lbs. 0.0oz. 73.832296fm; 28.88 BMI Method:Stated General Appearance: No Apparent Distress, Thin Eyes: Bilateral Eye PERRL, Bilateral Eye EOMI HEENT: Other (NGT in place) Respiratory: Lungs Clear, No Accessory Muscle Use Cardiovascular: Regular Rate, Rhythm, No Murmur Results Results/Procedures Labs Laboratory Tests 04/28/23 05:02 04/29/23 05:00 Patient resulted labs reviewed. Imaging: Reviewed Imaging Report Imaging [facility]. [place], [place] NAME: RASHEEDA PHILLIPS MED REC#: [id number] PT STATUS: ADM IN : 1945 PHYSICIAN: LEONEL SHEETS DO ADMIT DATE: 04/26/23 Signed Date of Exam:04/28/23 CT ABDOMEN WO PROCEDURE: CT abdomen without contrast. TECHNIQUE: Multiple contiguous axial images were obtained through the abdomen without the use of intravenous contrast. Auto Exposure Controls were utilized during the CT exam to meet ALARA standards for radiation dose reduction. INDICATION: A recent duodenal perforation, status post surgery. Study is performed to evaluate for postoperative leak. Gastrografin contrast and water was injected through the patient's indwelling nasogastric tube. Axial imaging through the abdomen was then performed. There is a small right pleural effusion. There is a residual pneumoperitoneum present. There is some residual perihepatic ascites as well. Contrast is seen within the stomach. Contrast is seen within the duodenum as well. No definite extravasation of contrast is identified. Patient does have an NG tube in place as well as a right upper quadrant surgical drain. Liver is unremarkable. Gallbladder surgically absent. The pancreas and spleen are unremarkable. No adrenal mass is detected. Kidneys are unremarkable apart from a cortical cyst in the lower pole of the left kidney. Bowel loops appear nonobstructed. There are diverticula involving the descending and sigmoid colon. Aorta is calcified but nonaneurysmal. There is an IVC filter in place. IMPRESSION: 1. Small right pleural effusion and right basilar atelectasis. 2. A residual pneumoperitoneum from recent surgery as well as perihepatic ascites. 3. No definite evidence of duodenal leak or contrast extravasation. Dictated by: Dictated on workstation # [id number] Dict: 04/28/23 1100 Trans: 04/28/231613 [facility] [id number] Interpreted by: GAURANG VEGA MD Electronically signed by: GAURANG VEGA MD 04/28/234 [facility] [place], [place] NAME: RASHEEDA PHILLIPS MED REC#: [id number] PT STATUS: ADM IN : 1945 PHYSICIAN: LEONEL SHEETS DO ADMIT DATE: 04/26/23 Signed Date of Exam:04/28/23 CT ABDOMEN WO PROCEDURE: CT abdomen without contrast. TECHNIQUE: Multiple contiguous axial images were obtained through the abdomen without the use of intravenous contrast. Auto Exposure Controls were utilized during the CT exam to meet ALARA standards for radiation dose reduction. INDICATION: A recent duodenal perforation, status post surgery. Study is performed to evaluate for postoperative leak. Gastrografin contrast and water was injected through the patient's indwelling nasogastric tube. Axial imaging through the abdomen was then performed. There is a small right pleural effusion. There is a residual pneumoperitoneum present. There is some residual perihepatic ascites as well. Contrast is seen within the stomach. Contrast is seen within the duodenum as well. No definite extravasation of contrast is identified. Patient does have an NG tube in place as well as a right upper quadrant surgical drain. Liver is unremarkable. Gallbladder surgically absent. The pancreas and spleen are unremarkable. No adrenal mass is detected. Kidneys are unremarkable apart from a cortical cyst in the lower pole of the left kidney. Bowel loops appear nonobstructed. There are diverticula involving the descending and sigmoid colon. Aorta is calcified but nonaneurysmal. There is an IVC filter in place. IMPRESSION: 1. Small right pleural effusion and right basilar atelectasis. 2. A residual pneumoperitoneum from recent surgery as well as perihepatic ascites. 3. No definite evidence of duodenal leak or contrast extravasation. Dictated by: Dictated on workstation # [id number] Dict: 04/28/23 1100 Trans: 04/28/23 1613 [facility] [id number] Interpreted by: GAURANG VEGA MD Electronically signed by: GAURANG VEGA MD 04/28/23 1613 Assessment/Plan Assessment and Plan Assess & Plan/Chief Complaint Bowel perforation Management per primary Pain regimen Continue IV abx Discussed with Dr Sheets- advanced diet MS Increased frequency of falls Not on any maintenance meds PT/OT Reports quite weak from her baseline Asthma Continue breo HTN Overactive Bladder HLD BP up, resuming home meds Continue home meds DVT ppx: Diagnosis/Problems Diagnosis/Problems (1) Multiple sclerosis (2) Asthma (3) Essential (primary) hypertension (4) Hypothyroidism (5) Hyperlipidemia (6) Normocytic anemia (7) Hypokalemia (8) Perforated abdominal viscus Status: Acute GARY,RHETT M MD Apr 29, 2023 14:26
[2023-04-29] MEDS ORDERED: PATIENT MAY USE OWN MEDS, ALL MC SCH (15:00)
[2023-04-29] MEDS: MAGNESIUM 1 GM/100 ML IVPB 100 ML IV SCH ×2 (15:23→16:37)
[2023-04-29] MEDS: POTASSIUM CL 10MEQ/50ML IVPB 50 ML IV SCH ×4 (15:23→17:52)
--- NOTE | 2023-04-29 15:28 | Occupational Therapy Eval ---
OT Evaluation-General/PLF Medical Diagnosis Admission Date Apr 26, 2023 at 00:40 Medical Diagnosis: small intesting perforation Onset Date: Apr 26, 2023 Therapy Diagnosis Therapy Diagnosis: weakness Height/Weight Height (Feet): 5 Height (Inches): 1.00 Weight (Pounds): 161 Weight (Ounces): 0.0 Precautions Precautions/Isolations: Fall Prevention, Standard Precautions Safety Interventions: Bed Exit Alarm Weight Bear Status Weight Bearing Restriction: Full Weight Bearing Referral Physician: Opal Referral Reason: Self Care, Evaluation/Treatment Medical History Pertinent Medical History: CABG, CAD, HTN Additional Medical History MS Reviewed History: Yes Social History Home: Single Level Current Living Status: Alone Entry Into Home: Stairs Without Railing Steps Into Home: 2 ADL-Prior Level of Function SCALE: Activities may be completed with or without assistive devices. 8-Hsoyvgqudf-rdpyygu completes the activity by him/herself with no assistance from a helper. 5-Set-up or Clean-up Assistance-helper sets up or cleans up; patient completes activity. [place] assists only prior to or following the activity. 4-Supervision or Touching Assistance-helper provides verbal cues and/or touching/steadying and/or contact guard assistance as patient completes activity. Assistance may be provided throughout the activity or intermittently. 3-Partial/Moderate Assistance-helper does LESS THAN HALF the effort. [place] lifts, holds or supports trunk or limbs, but provides less than half the effort. 2-Substantial/Maximal Assistance-helper does MORE THAN HALF the effort. [place] lifts or holds trunk or limbs and provides more than half the effort. 0-Xcytepakv-gepqrw does ALL the effort. Patient does none of the effort to complete the activity. Or, the assistance of 2 or more helpers is required for the patient to complete the activity. If activity was not attempted, code reason: 7-Patient Refused. 9-Not Applicable-not attempted and the patient did not perform the activity before the current illness, exacerbation or injury. 10-Not Attempted due to Environmental Limitations-(lack of equipment, weather restraints, etc.). 88-Not Attempted due to Medical Conditions or Safety Concerns. Self Care: Independent Functional Cognition: Independent Drive Self: Yes OT Current Status Subjective NG tube removed, drain education provided during toileting, agreeable to OT, visitors leaving. Mental Status/Objective Patient Orientation: Person, Place, Time, Situation Attachments: Drains Current Glasses/Contacts: Yes Upper Extremity ROM UE ROM WFLs Upper Extremity Coordination FAIR + Upper Extremity Sensation intact Upper Extremity Strength +3/5 not formally tested d/t post op Unable to retrieve dropped items from floor, OT performed. ADL-Treatment Eating (QC): 5 (current;y on clear liquids) Oral Hygiene (QC): 4 Shower/Bathe Self (QC): 88 Upper Body Dressing (QC): 3 Lower Body Dressing (QC): 3 On/Off Footwear (QC): 5 (supipne in bed cross opposite LE over knee) Toileting Hygiene (QC): 4 Education OT Patient Education: Correct positioning, Exercise program, Modified ADL techniques, Progress toward Goal/Update tx plan, Purpose of tx/functional ac tivities, Reviewed precautions, Rehab process, Safety issues, Transfer techniques, Use of adapted equipment Teaching Recipient: Patient Teaching Methods: Demonstration, Discussion Response to Teaching: Reinforcement Needed OT Carpet Repairer Goals Carpet Repairer Goals Eating (QC): 6 Oral Hygiene (QC): 6 Toileting Hygiene (QC): 6 Shower/Bathe Self (QC): 6 Upper Body Dressing (QC): 6 Lower Body Dressing (QC): 6 On/Off Footwear (QC): 6 1=Demonstrate adherence to instructed precautions during ADL tasks. 2=Patient will verbalize/demonstrate understanding of assistive devices/modifications for ADL. 3=Patient will improve strength/tolerance for activity to enable patient to perform ADL's. OT Education/Plan Problem List/Assessment Assessment: Decreased Activ Tolerance, Decreased UE Strength, Impaired Coordination, Impaired Funct Balance, Impaired Self-Care Skills Discharge Recommendations Plan/Recommendations: Continue POC Therapy Discharge Recommendati: Post Acute OT Treatment Plan/Plan of Care Treatment,Training & Education: Yes Patient would benefit from OT for education, treatment and training to promote independence in ADL's, mobility, safety and/or upper extremity function for ADL's. Plan of Care: ADL Retraining, Functional Mobility, Group Exercise/Act as Ind, UE Funct Exercise/Act Treatment Duration: May 03, 2023 Frequency: 3 times per week (3-5 times per week) Rehab Potential: Fair Time Start Time: 14:50 Stop Time: 15:10 DATE: Apr 29, 2023 Total Time Billed (hr/min): 20 Billed Treatment Time EVM 20 JAKY SKINNER OT Apr 29, 2023 15:28
[2023-04-29 15:51] VITALS: BP_SYST 183; BP_DIAS 803; BP_DIAS 83
[2023-04-29] MEDS: GEMFIBROZIL 600 MG (LOPID) TAB PO SCH (16:33)
[2023-04-29] MEDS ORDERED: NON-FORMULARY MEDICATION 1 EA EA (Levothyroxine Sodium (Levothyroxine) 75 MCG) PO SCH (18:00)
[2023-04-29] MEDS: LIOTHYRONINE 5 MCG TAB PO SCH (18:32)
[2023-04-29] MEDS: LEVOTHYROXINE 75 MCG (LEVOTHROID) TABLET PO SCH (18:32)
[2023-04-29 19:27] VITALS: BP 153/83
[2023-04-29] MEDS: GABAPENTIN 300 MG (NEURONTIN) CAP PO SCH (19:53)
[2023-04-29] MEDS: PRAVASTATIN 40 MG TAB PO SCH (19:53)
[2023-04-29] MEDS ORDERED: NON-FORMULARY MEDICATION 1 EA EA (Pravastatin Sodium 40 MG) PO SCH (21:00)
[2023-04-29] MEDS ORDERED: AtorvaSTATin TABLET 10 MG TABLET PO SCH (21:00)
[2023-04-29 23:16] VITALS: BP 163/83
[2023-04-30] MEDS: PIPERACILLIN SODIUM/TAZOBACTAM 4.5 GM in NS (IVPB) 100 ML IV SCH ×3 (02:53→17:45)
[2023-04-30 03:36] VITALS: BP 167/81
[2023-04-30] MEDS: LEVOTHYROXINE 75 MCG (LEVOTHROID) TABLET PO SCH (05:34)
[2023-04-30] MEDS: LIOTHYRONINE 5 MCG TAB PO SCH (05:35)
[2023-04-30 05:49] LABS: BASOPHILS # (AUTO) 0.1 10^3/uL (0.0-0.1); BASOPHILS % (AUTO) 1 % (0-10); EOSINOPHILS # (AUTO) 0.6 10^3/uL (0.0-0.3); EOSINOPHILS % (AUTO) 9 % (0-10); HEMATOCRIT 33 % (35-52); HEMOGLOBIN 10.9 g/dL (11.5-16.0); LYMPHOCYTES # (AUTO) 1.4 10^3/uL (1.0-4.0); LYMPHOCYTES % (AUTO) 19 % (12-44); MEAN CORPUSCULAR HEMOGLOBIN 31 pg (25-34); MEAN CORPUSCULAR HGB CONC 33 g/dL (32-36); MEAN CORPUSCULAR VOLUME 92 fL (80-99); MEAN PLATELET VOLUME 11.2 fL (9.0-12.2); MONOCYTES # (AUTO) 0.8 10^3/uL (0.0-1.0); MONOCYTES % (AUTO) 11 % (0-12); NEUTROPHILS # (AUTO) 4.3 10^3/uL (1.8-7.8); NEUTROPHILS % (AUTO) 59 % (42-75); PLATELET COUNT 287 10^3/uL (130-400); WHITE BLOOD COUNT 7.4 10^3/uL (4.3-11.0)
[2023-04-30 06:04] LABS: ALBUMIN 2.7 GM/DL (3.2-4.5); BILIRUBIN,TOTAL 0.4 MG/DL (0.1-1.0); CALCIUM 8.3 MG/DL (8.5-10.1); CREATININE SERUM 0.81 MG/DL (0.60-1.30); MAGNESIUM 1.9 MG/DL (1.6-2.4); PHOSPHORUS 2.6 MG/DL (2.3-4.7); POTASSIUM 2.6 MMOL/L (3.6-5.0); TOTAL PROTEIN 5.3 GM/DL (6.4-8.2)
[2023-04-30] MEDS: GEMFIBROZIL 600 MG (LOPID) TAB PO SCH ×2 (06:19→16:02)
[2023-04-30 07:36] VITALS: BP 183/88
--- NOTE | 2023-04-30 07:44 | Progress Note - Surgery ---
AMRITA CRAWFORD 04/30/23 0744: Subjective Time Seen by a Provider: 07:25 Subjective/Events-last exam Pt is sitting up in bed and drinking water this morning. She is much more vibrant and happy than she was the prior morning. She says that she slept great and got 6 hours of sleep which is the best she has had since she was admitted. She says she doesn't have any current complaints besides that the hospital beds are not comfortable. She says that she had a bowel movement yesterday after not having one in the past 2 days before that. She says that she is still making sure to ask for nursing when she needs to get up and go. She denies any hematuria or hematochezia. She is happy that she got her NG tube out of her nose and says that she feels like she can breath much better with it out. Her BP is still elevated this morning as it has been. Review of Systems General: No Chills, No Night Sweats; Appetite (decreased) HEENT: No Head Aches, No Eye Pain, No Dysphasia Pulmonary: No Dyspnea, No Cough Cardiovascular: No: Chest Pain, Palpitations Gastrointestinal: No: Nausea, Vomiting, Abdominal Pain, Diarrhea, Hematochezia Genitourinary: No Dysuria, No Frequency Neurological: No: Weakness, Numbness Focused Exam Respiratory: Chest Non Tender, Lungs Clear, No Accessory Muscle Use; No Crackles Cardiovascular: Regular Rate, Rhythm, No Edema, No Gallop, No Murmur; No Diasto lic Murmur, No Systolic Murmur Peripheral Pulses: 3+ Carotid (R), 3+ Carotid (L), 3+ Radial Pulses (R), 3+ Radial Pulses (L) Skin: No rash, No ulcerations Objective Exam Vital Signs Date Time Temp Pulse Resp B/P (MAP) Pulse Ox O2 Delivery O2 Flow Rate FiO2 04/30/23 07:36 36.3 68 20 183/88 (119) 95 Room Air 04/30/23 03:36 36.7 67 16 167/81 (109) 94 Room Air 04/29/23 23:16 36.7 68 16 163/83 (109) 94 Room Air 04/29/23 19:55 Room Air 04/29/23 19:27 36.8 70 18 153/83 (106) 95 Room Air 04/29/23 15:51 36.5 62 18 183/83 (116) 95 Room Air 04/29/23 11:49 36.4 61 20 176/91 (119) 94 Room Air 04/29/23 08:15 95 Nasal Cannula 2.00 04/29/23 07:50 95 Nasal Cannula 2.00 04/29/23 07:48 36.5 64 20 164/92 (116) 96 Nasal Cannula 2.00 I & O 04/30/23 06:59 Intake Total 2780 ml Output Total 925 ml Balance 1855 ml Capillary Refill : Less Than 3 Seconds General Appearance: No Apparent Distress, Thin HEENT: PERRL/EOMI, Other (NGT in place) Respiratory: Chest Non Tender, Lungs Clear; No Crackles, No Decreased Breath Sounds, No Respiratory Distress Cardiovascular: Regular Rate, Rhythm, No Edema, No Gallop, No Murmur; No Diastolic Murmur, No Systolic Murmur, No Friction Rub Peripheral Pulses: 3+ Carotid (R), 3+ Carotid (L), 3+ Radial Pulses (R), 3+ Radial Pulses (L) Gastrointestinal: soft, tenderness (mostly at mildine inicisioin), hernia (Will tral/incisional - incarcerated), other (incision c/d/i, CLARITA with serosanguinous fluid) Neurologic/Psychiatric: Alert, Oriented x3 Results Lab Laboratory Tests 04/29/23 11:47: Glucometer 132H 04/29/23 23:19: Glucometer 89 04/30/23 05:02: White Blood Count 7.4, Red Blood Count 3.57L, Hemoglobin 10.9L, Hematocrit 33L, Mean Corpuscular Volume 92, Mean Corpuscular Hemoglobin 31, Mean Corpuscular Hemoglobin Concent 33, Red Cell Distribution Width 12.2, Platelet Count 287, Mean Platelet Volume 11.2, Immature Granulocyte % (Auto) 2, Neutrophils (%) (Auto) 59, Lymphocytes (%) (Auto) 19, Monocytes (%) (Auto) 11, Eosinophils (%) (Auto) 9, Basophils (%) (Auto) 1, Neutrophils # (Auto) 4.3, Lymphocytes # (Auto) 1.4, Monocytes # (Auto) 0.8, Eosinophils # (Auto) 0.6H, Basophils # (Auto) 0.1, Immature Granulocyte # (Auto) 0.1, Sodium Level 141, Potassium Level 2.6L, Chloride Level 109H, Carbon Dioxide Level 25, Anion Gap 7, Blood Urea Nitrogen 7, Creatinine 0.81, Estimat Glomerular Filtration Rate 75, BUN/Creatinine Ratio 9, Glucose Level 108H, Calcium Level 8.3L, Corrected Calcium 9.3, Phosphorus Level 2.6, Magnesium Level 1.9, Total Bilirubin 0.4, Aspartate Amino Transf (AST/SGOT) 31, Alanine Aminotransferase (ALT/SGPT) 21, Alkaline Phosphatase 60, Total Protein 5.3L, Albumin 2.7L 04/30/23 05:08: Glucometer 110 Microbiology 04/26/23 MRSA Screen - Final, Complete MRSA not isolated 04/26/23 Blood Culture - Preliminary, Resulted No growth 04/25/23 Urine Culture - Final, Complete Escherichia coli Assessment/Plan Assessment/Plan Assessment/Plan S/P [place] of Duodenal perforation with Modified Pato patch CAD HTN Asthma NGT was discontinued, is maintaining the liquid diet well besides of the "blandness" she has no complaints on it. Is not having trouble getting up and going to the bathroom and is not having nausea or vomiting. Pt looks like she will meet rehab criteria. She resumed her home meds yesterday and doesn't have any complaints about them. Encourage IS use and ambulation. LEONEL JOSEPH DO 04/30/23 0837: Subjective Time Seen by a Provider: 08:21 Subjective/Events-last exam Pt seen and examined, her only complaint is that she would like the breathing treatments. Tolerating diet, had a BM and pain is controlled. Review of Systems Pulmonary: No Dyspnea, No Cough Cardiovascular: No: Chest Pain, Palpitations Gastrointestinal: No: Nausea, Vomiting, Abdominal Pain Objective Exam General Appearance: No Apparent Distress HEENT: PERRL/EOMI Respiratory: Lungs Clear, No Accessory Muscle Use, No Respiratory Distress, Decreased Breath Sounds (right base) Cardiovascular: Regular Rate, Rhythm, No Murmur Gastrointestinal: soft, tenderness (mostly at mildine inicisioin), hernia (Ventral/incisional - incarcerated), other (incision c/d/i, CLARITA with serosanguinous fluid) Neurologic/Psychiatric: Alert, Oriented x3 Assessment/Plan Assessment/Plan Assessment/Plan S/P [place] of Duodenal perforation with Modified Pato patch CAD HTN Asthma NGT was discontinued, is maintaining the liquid diet well besides of the "blandness" she has no complaints on it. Can advance to Minced and Moist. Will have RT start breathing treatments. Pt looks like she will meet rehab criteria. She resumed her home meds yesterday and doesn't have any complaints about them. Encourage IS use and ambulation. Supervisory-Addendum Brief Verification & Attestation Participated in pt care: history, MDM, physical Personally performed: exam, history, MDM, supervision of care Care discussed with: Medical Student Procedures: n/a Verification and Attestation of Medical Student E/M Service A PA student performed and documented this service. I then reviewed and verified all information documented by the medical student and made modifications to such information, when appropriate. I personally performed a physical exam, medical decision making and then discussed any differences between the notes and made revisions as necessary to create one note. Leonel Joseph , 04/30/23 , 08:37 AMRITA CRAWFORD Apr 30, 2023 07:44 LEONEL JOSEPH DO Apr 30, 2023 08:37
[2023-04-30] MEDS: FLUTICASONE/VILANTEROL 100 MCG 14'S (BREO) IH SCH (07:45)
[2023-04-30] MEDS: LOSARTAN 100 MG (COZAAR) TABLET PO SCH (07:47)
[2023-04-30] MEDS: MYRBETRIQ 50 MG TAB PO SCH (07:47)
[2023-04-30] MEDS: FLUCONAZOLE 200 MG/100 ML 100 ML IV SCH (07:52)
[2023-04-30] MEDS: PANTOPRAZOLE 40 MG (PROTONIX) VIAL IV SCH ×2 (07:52→20:25)
[2023-04-30] MEDS ORDERED: NS IV 500 ML 500 ML IV PRN (08:30)
[2023-04-30] MEDS: POTASSIUM CL 10MEQ/50ML IVPB 50 ML IV SCH ×7 (09:10→16:01)
[2023-04-30 11:50] VITALS: BP 148/72
--- NOTE | 2023-04-30 12:00 | Occupational Ther Daily Note ---
OT Current Status-Daily Note Subjective Very talkative, agreeable to OT,would like to walk to elevator and meet her visitor today. Pain Numeric Pain Scale: 3 Location Body Site: Abdomen Mental Status/Objective Patient Orientation: Person, Place, Time, Situation manages her own LB garment around surgical dressing while toileting ADL-Treatment Therapy Code Descriptions/Definitions Functional [place] Measure: 0=Not Assessed/NA 4=Minimal Assistance 1=Total Assistance 5=Supervision or Setup 2=Maximal Assistance 6=Modified [place] 3=Moderate Assistance 7=Complete IndependenceSCALE: Activities may be completed with or without assistive devices. 3-Nneczwdnou-ewndvfc completes the activity by him/herself with no assistance from a helper. 5-Set-up or Clean-up Assistance-helper sets up or cleans up; patient completes activity. [place] assists only prior to or following the activity. 4-Supervision or Touching Assistance-helper provides verbal cues and/or touching/steadying and/or contact guard assistance as patient completes activity. Assistance may be provided throughout the activity or intermittently. 3-Partial/Moderate Assistance-helper does LESS THAN HALF the effort. [place] lifts, holds or supports trunk or limbs, but provides less than half the effort. 2-Substantial/Maximal Assistance-helper does MORE THAN HALF the effort. [place] lifts or holds trunk or limbs and provides more than half the effort. 8-Ftachtwjo-aobywn does ALL the effort. Patient does none of the effort to complete the activity. Or, the assistance of 2 or more helpers is required for the patient to complete the activity. If activity was not attempted, code reason: 7-Patient Refused. 9-Not Applicable-not attempted and the patient did not perform the activity before the current illness, exacerbation or injury. 10-Not Attempted due to Environmental Limitations-(lack of equipment, weather restraints, etc.). 88-Not Attempted due to Medical Conditions or Safety Concerns. Eating (QC): 5 (pureed diet upgrade from clear liquid yesterday) Oral Hygiene (QC): 5 (standing at sink w/ FWW) Shower/Bathe Self (QC): 7 Upper Body Dressing (QC): 5 (d/t IV) Lower Body Dressing (QC): 5 On/Off Footwear: 5 (progeressed from don supine to sitting in reclinerr w/ socks handed to patient) Toileting Hygiene (QC): 5 Toilet Transfer (QC): 4 (IV pole management by OT) Education OT Patient Education: Exercise program, Modified ADL techniques, Progress toward Goal/Update tx plan, Purpose of tx/functional activities, Reviewed precautions, Rehab process, Safety issues, Transfer techniques, Use of adapted equipment Teaching Recipient: Patient Teaching Methods: Demonstration, Discussion Response to Teaching: Verbalize Understanding 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 2=Patient will verbalize/demonstrate understanding of assistive devices/modifications for ADL. 3=Patient will improve strength/tolerance for activity to enable patient to perform ADL's. OT Education/Plan Discharge Recommendations Plan/Recommendations: Continue POC Treatment Plan/Plan of Care Treatment,Training & Education: Yes Patient would benefit from OT for education, treatment and training to promote independence in ADL's, mobility, safety and/or upper extremity function for ADL's. Plan of Care: ADL Retraining, Functional Mobility, Group Exercise/Act as Ind, UE Funct Exercise/Act Treatment Duration: May 03, 2023 Frequency: 3 times per week (3-5 times per week) Estimated Hrs Per Day: .25 hour per day Rehab Potential: Good return to recliner w/ alarm activate, all needs met Time Start Time: 10:27 Stop Time: 10:45 DATE: Apr 30, 2023 Total Time Billed (hr/min): 18 Billed Treatment Time ADL 18 JAKY SKINNER OT Apr 30, 2023 12:00
--- NOTE | 2023-04-30 14:26 | Physical Therapy Daily Note ---
PT Daily Note-Current Subjective Patient sitting in chair upon PT arrival, agreeable to treatment. Patient rates pain at 0/10 currently. Pain Section J - Health Conditions 1. Rarely or not at all 2. Occasionally 3. Frequently 4. Almost constantly 8. Unable to answer Pain Effect on Sleep: 1 Pain Interference with Therapy: 1 Pain Interference w/Day-to-Day: 1 Mental Status Patient Orientation: Person, Place, Time, Situation Transfers SCALE: Activities may be completed with or without assistive devices. 7-Jaqjnpdcmf-idbppww completes the activity by him/herself with no assistance from a helper. 5-Set-up or Clean-up Assistance-helper sets up or cleans up; patient completes activity. [place] assists only prior to or following the activity. 4-Supervision or Touching Assistance-helper provides verbal cues and/or touching/steadying and/or contact guard assistance as patient completes activity. Assistance may be provided throughout the activity or intermittently. 3-Partial/Moderate Assistance-helper does LESS THAN HALF the effort. [place] lifts, holds or supports trunk or limbs, but provides less than half the effort. 2-Substantial/Maximal Assistance-helper does MORE THAN HALF the effort. [place] lifts or holds trunk or limbs and provides more than half the effort. 1-Erxseszlb-uzrdlk does ALL the effort. Patient does none of the effort to complete the activity. Or, the assistance of 2 or more helpers is required for the patient to complete the activity. If activity was not attempted, code reason: 7-Patient Refused. 9-Not Applicable-not attempted and the patient did not perform the activity before the current illness, exacerbation or injury. 10-Not Attempted due to Environmental Limitations-(lack of equipment, weather restraints, etc.). 88-Not Attempted due to Medical Conditions or Safety Concerns. Sit to Stand (QC): 3 Chair/Nuk-fn-Sbfiy Xfer(QC): 3 Weight Bearing Right Lower Extremity: Right Weight Bearing/Tolerated Left Lower Extremity: Left Weight Bearing/Tolerated Gait Training Does the Patient Walk?: Yes Distance: 400 Walk 10 feet (QC): 4 Walk 50 ft with 2 Turns(QC): 4 Walk 150 ft (QC): 4 Gait Persons Needed: 1 Gait Assistive Device: FWW Assessment Current Status: Good Progress Patient tolerated treatment fair. Patient requires min a for sit to stand. Patient ambulates 400 feet with FWW, with SBA, and verbal cues for safety, progression, posture, conservation of energy. Patient in chair post treatment with all needs met, nursing notified, call light in reach, friend in the room. PT Prison Goals [facility] Goals PT [facility] Of [facility]ight Goals Time Frame: May 17, 2023 Roll Left & Right (QC): 6 Sit to Lying (QC): 6 Lying-Sitting on Side/Bed(QC): 6 Sit to Stand (QC): 6 Chair/Iei-no-Izftd Xfer(QC): 6 Toilet Transfer (QC): 6 Walk 10 feet (QC): 5 Walk 50ft with 2 Turns (QC): 5 Walk 150 ft (QC): 5 Walking 10ft on Uneven Surface: 5 1 Step (curb) (QC): 4 4 Steps (QC): 4 PT Plan Treatment/Plan Treatment Plan: Continue Plan of Care Treatment Plan: Bed Mobility, Education, Functional Activity Melinda, Functional Strength, Gait, Safety, Therapeutic Exercise, Transfers Treatment Duration: May 17, 2023 Frequency: 6 times per week Estimated Hrs Per Day: .25 hour per day Patient and/or Family Agrees t: Yes Safety Risks/Education Patient Education: Gait Training, Transfer Techniques Teaching Recipient: Patient Teaching Methods: Demonstration, Discussion Response to Teaching: Verbalize Understanding, Return Demonstration Time Time In: 1105 Time Out: 1115 DATE: Apr 30, 2023 Total Billed Treatment Time: 10 Total Billed Treatment Visit, GT NANY BAUGH PT Apr 30, 2023 14:26
[2023-04-30 16:12] VITALS: BP 163/83
[2023-04-30 19:19] VITALS: BP 157/71
[2023-04-30] MEDS: PRAVASTATIN 40 MG TAB PO SCH (20:26)
[2023-04-30] MEDS: GABAPENTIN 300 MG (NEURONTIN) CAP PO SCH (20:27)
[2023-04-30 23:21] VITALS: BP 178/84
[2023-05-01] VITALS (7 sets, daily range): BP systolic 135–170; BP diastolic 63–98
[2023-05-01] MEDS: LEVOTHYROXINE 75 MCG (LEVOTHROID) TABLET PO SCH (06:13)
[2023-05-01] MEDS: LIOTHYRONINE 5 MCG TAB PO SCH (06:14)
[2023-05-01 06:16] LABS: BASOPHILS # (AUTO) 0.1 10^3/uL (0.0-0.1); BASOPHILS % (AUTO) 1 % (0-10); EOSINOPHILS # (AUTO) 0.7 10^3/uL (0.0-0.3); EOSINOPHILS % (AUTO) 10 % (0-10); HEMATOCRIT 32 % (35-52); HEMOGLOBIN 10.5 g/dL (11.5-16.0); LYMPHOCYTES # (AUTO) 1.7 10^3/uL (1.0-4.0); LYMPHOCYTES % (AUTO) 24 % (12-44); MEAN CORPUSCULAR HEMOGLOBIN 30 pg (25-34); MEAN CORPUSCULAR HGB CONC 33 g/dL (32-36); MEAN CORPUSCULAR VOLUME 93 fL (80-99); MEAN PLATELET VOLUME 10.9 fL (9.0-12.2); MONOCYTES # (AUTO) 0.8 10^3/uL (0.0-1.0); MONOCYTES % (AUTO) 11 % (0-12); NEUTROPHILS # (AUTO) 3.7 10^3/uL (1.8-7.8); NEUTROPHILS % (AUTO) 53 % (42-75); PLATELET COUNT 283 10^3/uL (130-400); WHITE BLOOD COUNT 7.1 10^3/uL (4.3-11.0)
[2023-05-01 06:28] LABS: ALBUMIN 2.6 GM/DL (3.2-4.5)
[2023-05-01 06:29] LABS: POTASSIUM 3.5 MMOL/L (3.6-5.0)
[2023-05-01 06:30] LABS: CALCIUM 8.4 MG/DL (8.5-10.1)
[2023-05-01 06:31] LABS: TOTAL PROTEIN 5.2 GM/DL (6.4-8.2)
[2023-05-01 06:33] LABS: BILIRUBIN,TOTAL 0.3 MG/DL (0.1-1.0)
[2023-05-01] MEDS: POTASSIUM CL 10MEQ/50ML IVPB 50 ML IV SCH (06:34)
[2023-05-01 06:35] LABS: CREATININE SERUM 0.83 MG/DL (0.60-1.30)
[2023-05-01] MEDS: KCL 20 MEQ TAB (K-DUR) PO SCH (06:36)
[2023-05-01] MEDS: POTASSIUM BICARB 20 MEQ (EFFER-K) TABLET PO SCH (06:36)
[2023-05-01 06:37] LABS: MAGNESIUM 1.6 MG/DL (1.6-2.4)
[2023-05-01] MEDS: MAGNESIUM 1 GM/100 ML IVPB 100 ML IV SCH ×5 (06:45→09:51)
[2023-05-01] MEDS: GEMFIBROZIL 600 MG (LOPID) TAB PO SCH ×2 (06:50→16:25)
[2023-05-01] MEDS ORDERED: KCL 20 MEQ TAB (K-DUR) PO NR (07:00)
[2023-05-01] MEDS: MYRBETRIQ 50 MG TAB PO SCH (08:02)
[2023-05-01] MEDS: PANTOPRAZOLE 40 MG (PROTONIX) VIAL IV SCH (08:02)
[2023-05-01] MEDS: LOSARTAN 100 MG (COZAAR) TABLET PO SCH (08:02)
[2023-05-01] MEDS: FLUCONAZOLE 200 MG/100 ML 100 ML IV SCH (08:02)
[2023-05-01] MEDS: FLUTICASONE/VILANTEROL 100 MCG 14'S (BREO) IH SCH (08:04)
--- NOTE | 2023-05-01 08:34 | Progress Note - Surgery ---
AMRITA CRAWFORD 05/01/23 0834: Subjective Time Seen by a Provider: 08:14 Subjective/Events-last exam Patient is seen this morning sitting up in bed and talking to nursing. She has complaints again about the food that they feed her and says that she is sensitive to gluten. She also asks about getting her drain port out as it only had 5 mL drained this morning. 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 She states that she has had somewhat of a cough and sputum production the day prior, says that she is short of breath. She says that she is still having some trouble breathing but the breathing treatment did help her the day prior and says that she has asthma. She had 4 bowel movements yesterday that she said were all diarrhea and has not had one this morning yet. Her blood pressure was 137/63 at 3:24 this morning, but then mickey to 155/88 at 7:25 this morning. Her potassium was down to 2.6 on 04/30 but got 40 of potassium this morning and was up to 3.5, we will continue to monitor this. Review of Systems General: No Chills, No Night Sweats; Appetite (decreased) HEENT: No Head Aches, No Ear Pain; Dysphasia (if she drinks milk or coffee it comes back up. ) Pulmonary: Dyspnea (says she has been SOA and has had a cough with sputum production), Cough Cardiovascular: No: Chest Pain, Palpitations Gastrointestinal: Abdominal Pain (tenderness and twitching of Epigastric and RUQ. ), Diarrhea (Had 4 diarrhea bowel movements the day prior. ); No: Nausea, Vomiting, Hematochezia Genitourinary: No Dysuria, No Frequency Neurological: No: Weakness, Numbness, Change in speech, Confusion Focused Exam Respiratory: Chest Non Tender, Lungs Clear, No Accessory Muscle Use; No Crackles, No Pleural Rub, No Rales, No Wheezing Cardiovascular: Regular Rate, Rhythm, No Edema, No Gallop, No Murmur; No Diastolic Murmur, No Systolic Murmur, No Extra Beats Peripheral Pulses: 3+ Carotid (R), 3+ Carotid (L), 3+ Radial Pulses (R), 3+ Ra dial Pulses (L) Skin: No rash, No ulcerations Within 3hrs of presentation: Admin fluids Objective Exam Vital Signs Date Time Temp Pulse Resp B/P (MAP) Pulse Ox O2 Delivery O2 Flow Rate FiO2 05/01/23 07:28 36.6 68 20 155/88 (110) 95 Room Air 05/01/23 03:24 36.2 71 16 137/63 (87) 95 Room Air 05/01/23 00:17 67 165/79 (107) 04/30/23 23:21 36.4 72 18 178/84 (115) 96 Room Air 04/30/23 20:00 Room Air 04/30/23 19:54 Room Air 04/30/23 19:19 36.9 81 18 157/71 (99) 97 Room Air 04/30/23 16:12 36.4 73 19 163/83 (109) 98 Room Air 04/30/23 11:50 36.4 80 20 148/72 (97) 96 Room Air 04/30/23 11:32 96 Room Air I & O 05/01/23 07:00 Intake Total 1790 ml Output Total 615 ml Balance 1175 ml Capillary Refill : Less Than 3 Seconds General Appearance: No Apparent Distress HEENT: PERRL/EOMI Respiratory: Lungs Clear, No Accessory Muscle Use, No Respiratory Distress, Decreased Breath Sounds (right base) Cardiovascular: Regular Rate, Rhythm, No Murmur; No Diastolic Murmur, No Systolic Murmur Peripheral Pulses: 3+ Carotid (R), 3+ Carotid (L), 3+ Radial Pulses (R), 3+ Radial Pulses (L) Gastrointestinal: soft, tenderness (mostly at mildine inicisioin, small amount to RUQ), hernia (Ventral/incisional - incarcerated), other (incision c/d/i, CLARITA with serosanguinous fluid) Neurologic/Psychiatric: Alert, Oriented x3 Lymphatic: No Adenopathy Results Lab Laboratory Tests 04/30/23 10:56: Glucometer 124H 05/01/23 05:04: White Blood Count 7.1, Red Blood Count 3.45L, Hemoglobin 10.5L, Hematocrit 32L, Mean Corpuscular Volume 93, Mean Corpuscular Hemoglobin 30, Mean Corpuscular Hemoglobin Concent 33, Red Cell Distribution Width 12.5, Platelet Count 283, Mean Platelet Volume 10.9, Immature Granulocyte % (Auto) 2, Neutrophils (%) (Auto) 53, Lymphocytes (%) (Auto) 24, Monocytes (%) (Auto) 11, Eosinophils (%) (Auto) 10, Basophils (%) (Auto) 1, Neutrophils # (Auto) 3.7, Lymphocytes # (Auto) 1.7, Monocytes # (Auto) 0.8, Eosinophils # (Auto) 0.7H, Basophils # (Auto) 0.1, Immature Granulocyte # (Auto) 0.1, Sodium Level 142, Potassium Level 3.5L, Chloride Level 110H, Carbon Dioxide Level 24, Anion Gap 8, Blood Urea Nitrogen 7, Creatinine 0.83, Estimat Glomerular Filtration Rate 73, BUN/Creatinine Ratio 8, Glucose Level 84, Calcium Level 8.4L, Corrected Calcium 9.5, Phosphorus Level 3.0, Magnesium Level 1.6, Total Bilirubin 0.3, Aspartate Amino Transf (AST/SGOT) 25, Alanine Aminotransferase (ALT/SGPT) 19, Alkaline Phosphatase 52, Total Protein 5.2L, Albumin 2.6L Microbiology 04/26/23 MRSA Screen - Final, Complete MRSA not isolated 04/26/23 Blood Culture - Preliminary, Resulted No growth 04/25/23 Urine Culture - Final, Complete Escherichia coli Assessment/Plan Assessment/Plan Assessment/Plan S/P [place] of Duodenal perforation with Modified Pato patch CAD HTN Asthma Patient has moved to a restricted diet, but complains of the blandness as well. She says she has a sensitivity to gluten and does not consume any while at home, nursing states that they will put in preferences for her. She had one breathing treatment yesterday and says that it helped her quite a bit so will continue those. Pt looks like she will meet rehab criteria. She resumed her home meds two days prior and doesn't have any complaints about them still. Encourage IS use and ambulation.Will look into taking out her drainage port (not sure the name of it Dr. Joseph). She will continue to be evaluated and keep a close eye on her Potassium levels. LEONEL JOSEPH DO 05/01/23 1323: Subjective Date Seen by a Provider: May 01, 2023 Time Seen by a Provider: 10:51 Subjective/Events-last exam Pt seen and examined, sitting in chair in NAD and does not appear to have any trouble breathing. States pain is well controlled Review of Systems General: No Chills, No Night Sweats; Appetite (decreased) Pulmonary: Dyspnea (says she has been SOA and has had a cough with sputum production), Cough Cardiovascular: No: Chest Pain, Palpitations Gastrointestinal: Abdominal Pain (tenderness and twitching of Epigastric and RUQ. ), Diarrhea (Had 4 diarrhea bowel movements the day prior. ); No: Nausea, Vomiting, Hematochezia Objective Exam General Appearance: No Apparent Distress HEENT: PERRL/EOMI Respiratory: Lungs Clear, No Accessory Muscle Use, No Respiratory Distress, Decreased Breath Sounds (right base) Cardiovascular: Regular Rate, Rhythm, No Murmur Gastrointestinal: soft, tenderness (mostly at mildine inicisioin, small amount to RUQ), hernia (Ventral/incisional - incarcerated), other (incision c/d/i, CLARITA with serosanguinous fluid) Neurologic/Psychiatric: Alert, Oriented x3 Assessment/Plan Assessment/Plan Assessment/Plan S/P [place] of Duodenal perforation with Modified Pato patch Hypokalemia - improved somewhat CAD HTN Asthma Pt's insurance denied her inpt rehab, she is insisting she is not steady enough or strong enough to go home on her own. Will try to get her to SNF. Supervisory-Addendum Brief Verification & Attestation Participated in pt care: history, MDM, physical Personally performed: exam, history, MDM, supervision of care Care discussed with: Medical Student Procedures: n/a Verification and Attestation of Medical Student E/M Service A PA student performed and documented this service. I then reviewed and verified all information documented by the medical student and made modifications to such information, when appropriate. I personally performed a physical exam, medical decision making and then discussed any differences between the notes and made revisions as necessary to create one note. Leonel Joseph , 05/01/23 , 13:23 AMRITA CRAWFORD May 01, 2023 08:34 LEONEL JOSEPH DO May 01, 2023 13:23
--- NOTE | 2023-05-01 11:08 | Physical Therapy Daily Note ---
PT Daily Note-Current Subjective Patient agrees to PT. Pain Section J - Health Conditions 1. Rarely or not at all 2. Occasionally 3. Frequently 4. Almost constantly 8. Unable to answer Pain Effect on Sleep: 1 Pain Interference with Therapy: 1 Pain Interference w/Day-to-Day: 1 Mental Status Patient Orientation: Normal For Age Transfers SCALE: Activities may be completed with or without assistive devices. 2-Jyropolnzz-atbgylu completes the activity by him/herself with no assistance from a helper. 5-Set-up or Clean-up Assistance-helper sets up or cleans up; patient completes activity. [place] assists only prior to or following the activity. 4-Supervision or Touching Assistance-helper provides verbal cues and/or touching/steadying and/or contact guard assistance as patient completes activity. Assistance may be provided throughout the activity or intermittently. 3-Partial/Moderate Assistance-helper does LESS THAN HALF the effort. [place] lifts, holds or supports trunk or limbs, but provides less than half the effort. 2-Substantial/Maximal Assistance-helper does MORE THAN HALF the effort. [place] lifts or holds trunk or limbs and provides more than half the effort. 6-Uxqpwipql-trwsel does ALL the effort. Patient does none of the effort to complete the activity. Or, the assistance of 2 or more helpers is required for the patient to complete the activity. If activity was not attempted, code reason: 7-Patient Refused. 9-Not Applicable-not attempted and the patient did not perform the activity before the current illness, exacerbation or injury. 10-Not Attempted due to Environmental Limitations-(lack of equipment, weather restraints, etc.). 88-Not Attempted due to Medical Conditions or Safety Concerns. Sit to Stand (QC): 5 Chair/Jxj-hs-Evksj Xfer(QC): 5 Weight Bearing Right Lower Extremity: Right Weight Bearing/Tolerated Left Lower Extremity: Left Weight Bearing/Tolerated Gait Training Distance: >600' Walk 10 feet (QC): 5 Walk 50 ft with 2 Turns(QC): 5 Walk 150 ft (QC): 5 Gait Assistive Device: FWW slow, steady gait sequence Assessment Patient much improved on this date and remains up in recliner with needs met. Patient to ambulate with nursing PRN. PT Treating And Pumping Supervisor Goals Treating And Pumping Supervisor Goals PT Treating And Pumping Supervisor Goals Time Frame: May 17, 2023 Roll Left & Right (QC): 6 Sit to Lying (QC): 6 Lying-Sitting on Side/Bed(QC): 6 Sit to Stand (QC): 6 Chair/Cap-lf-Ewczl Xfer(QC): 6 Toilet Transfer (QC): 6 Walk 10 feet (QC): 5 Walk 50ft with 2 Turns (QC): 5 Walk 150 ft (QC): 5 Walking 10ft on Uneven Surface: 5 1 Step (curb) (QC): 4 4 Steps (QC): 4 PT Plan Treatment/Plan Treatment Plan: Continue Plan of Care Treatment Plan: Bed Mobility, Education, Functional Activity Melinda, Functional Strength, Gait, Safety, Therapeutic Exercise, Transfers Treatment Duration: May 17, 2023 Frequency: 6 times per week Estimated Hrs Per Day: .25 hour per day Patient and/or Family Agrees t: Yes Time Time In: 905 Time Out: 918 DATE: May 01, 2023 Total Billed Treatment Time: 14 Total Billed Treatment 1 visit FA 13 min CANDY ORO PT May 01, 2023 11:08
--- NOTE | 2023-05-01 11:46 | Occupational Ther Daily Note ---
OT Current Status-Daily Note Subjective c/o breakfast food choice, agreeable to Therapy Mental Status/Objective Patient Orientation: Person, Place, Time, Situation Attachments: Drains ADL-Treatment Therapy Code Descriptions/Definitions Functional [place] Measure: 0=Not Assessed/NA 4=Minimal Assistance 1=Total Assistance 5=Supervision or Setup 2=Maximal Assistance 6=Modified [place] 3=Moderate Assistance 7=Complete IndependenceSCALE: Activities may be completed with or without assistive devices. 6-Vdsmtlbazy-txjcjdo completes the activity by him/herself with no assistance from a helper. 5-Set-up or Clean-up Assistance-helper sets up or cleans up; patient completes activity. [place] assists only prior to or following the activity. 4-Supervision or Touching Assistance-helper provides verbal cues and/or touching/steadying and/or contact guard assistance as patient completes activity. Assistance may be provided throughout the activity or intermittently. 3-Partial/Moderate Assistance-helper does LESS THAN HALF the effort. [place] lifts, holds or supports trunk or limbs, but provides less than half the effort. 2-Substantial/Maximal Assistance-helper does MORE THAN HALF the effort. [place] lifts or holds trunk or limbs and provides more than half the effort. 4-Bqlcghlva-pbfrun does ALL the effort. Patient does none of the effort to complete the activity. Or, the assistance of 2 or more helpers is required for the patient to complete the activity. If activity was not attempted, code reason: 7-Patient Refused. 9-Not Applicable-not attempted and the patient did not perform the activity before the current illness, exacerbation or injury. 10-Not Attempted due to Environmental Limitations-(lack of equipment, weather restraints, etc.). 88-Not Attempted due to Medical Conditions or Safety Concerns. Eating (QC): 6 (regular diet) Oral Hygiene (QC): 6 Shower/Bathe Self (QC): 4 Upper Body Dressing (QC): 5 Lower Body Dressing (QC): 5 On/Off Footwear: 6 Toileting Hygiene (QC): 5 Toilet Transfer (QC): 5 Patient requires SBA/supervision d/t DME needs Education OT Patient Education: Correct positioning, Exercise program, Modified ADL techniques, Progress toward Goal/Update tx plan, Purpose of tx/functional activities, Rehab process, Safety issues, Use of adapted equipment Teaching Recipient: Patient Teaching Methods: Demonstration Response to Teaching: Return Demonstration OT Time Analysis Clerk Goals Time Analysis Clerk Goals Eating (QC): 6 Oral Hygiene (QC): 6 Toileting Hygiene (QC): 6 Shower/Bathe Self (QC): 6 Upper Body Dressing (QC): 6 Lower Body Dressing (QC): 6 On/Off Footwear (QC): 6 1=Demonstrate adherence to instructed precautions during ADL tasks. 2=Patient will verbalize/demonstrate understanding of assistive devices/modifications for ADL. 3=Patient will improve strength/tolerance for activity to enable patient to perform ADL's. OT Education/Plan Discharge Recommendations Plan/Recommendations: Continue POC Treatment Plan/Plan of Care Patient would benefit from OT for education, treatment and training to promote independence in ADL's, mobility, safety and/or upper extremity function for ADL's. Plan of Care: ADL Retraining, Functional Mobility, Group Exercise/Act as Ind, UE Funct Exercise/Act Treatment Duration: May 03, 2023 Frequency: 3 times per week (3-5 times per week) Estimated Hrs Per Day: .25 hour per day Rehab Potential: Good Time Start Time: 09:05 Stop Time: 09:18 DATE: May 01, 2023 Total Time Billed (hr/min): 13 Billed Treatment Time ADL 13 JAKY SKINNER OT May 01, 2023 11:46
[2023-05-01] MEDS: GABAPENTIN 300 MG (NEURONTIN) CAP PO SCH (20:21)
[2023-05-01] MEDS: PRAVASTATIN 40 MG TAB PO SCH (20:21)
[2023-05-01] MEDS: PANTOPRAZOLE 40 MG (PROTONIX) TAB PO SCH (20:21)
[2023-05-02 03:35] VITALS: BP 164/83
[2023-05-02] MEDS: LIOTHYRONINE 5 MCG TAB PO SCH (05:30)
[2023-05-02] MEDS: LEVOTHYROXINE 75 MCG (LEVOTHROID) TABLET PO SCH (05:30)
[2023-05-02 05:45] LABS: BASOPHILS # (AUTO) 0.1 10^3/uL (0.0-0.1); BASOPHILS % (AUTO) 1 % (0-10); EOSINOPHILS # (AUTO) 0.7 10^3/uL (0.0-0.3); EOSINOPHILS % (AUTO) 8 % (0-10); HEMATOCRIT 34 % (35-52); LYMPHOCYTES # (AUTO) 1.6 10^3/uL (1.0-4.0); LYMPHOCYTES % (AUTO) 19 % (12-44); MEAN CORPUSCULAR HEMOGLOBIN 30 pg (25-34); MEAN CORPUSCULAR HGB CONC 32 g/dL (32-36); MEAN CORPUSCULAR VOLUME 93 fL (80-99); MEAN PLATELET VOLUME 10.7 fL (9.0-12.2); MONOCYTES # (AUTO) 0.7 10^3/uL (0.0-1.0); MONOCYTES % (AUTO) 8 % (0-12); NEUTROPHILS # (AUTO) 5.1 10^3/uL (1.8-7.8); NEUTROPHILS % (AUTO) 62 % (42-75); PLATELET COUNT 311 10^3/uL (130-400); WHITE BLOOD COUNT 8.2 10^3/uL (4.3-11.0)
[2023-05-02 05:58] LABS: ALBUMIN 2.9 GM/DL (3.2-4.5); POTASSIUM 3.3 MMOL/L (3.6-5.0)
[2023-05-02 05:59] LABS: CALCIUM 8.4 MG/DL (8.5-10.1)
[2023-05-02 06:00] LABS: TOTAL PROTEIN 5.7 GM/DL (6.4-8.2)
[2023-05-02 06:02] LABS: BILIRUBIN,TOTAL 0.3 MG/DL (0.1-1.0)
[2023-05-02 06:04] LABS: CREATININE SERUM 0.84 MG/DL (0.60-1.30); PHOSPHORUS 3.3 MG/DL (2.3-4.7)
[2023-05-02] MEDS: POTASSIUM CL 10MEQ/50ML IVPB 50 ML IV SCH (06:07)
[2023-05-02] MEDS: MAGNESIUM 1 GM/100 ML IVPB 100 ML IV SCH (06:07)
[2023-05-02] MEDS: POTASSIUM BICARB 20 MEQ (EFFER-K) TABLET PO SCH (06:08)
[2023-05-02] MEDS: KCL 20 MEQ TAB (K-DUR) PO SCH (06:08)
[2023-05-02] MEDS ORDERED: KCL 20 MEQ TAB (K-DUR) PO ONE ×2 (06:15→10:15)
[2023-05-02] MEDS: GEMFIBROZIL 600 MG (LOPID) TAB PO SCH (06:35)
[2023-05-02] MEDS: FLUTICASONE/VILANTEROL 100 MCG 14'S (BREO) IH SCH (07:38)
[2023-05-02 07:42] VITALS: BP 180/99
--- NOTE | 2023-05-02 08:49 | Progress Note - Surgery ---
AMRITA CRAWFORD 05/02/23 0849: Subjective Time Seen by a Provider: 08:31 Subjective/Events-last exam Patient is seen this morning laying down in bed and playing on her phone. She had 3 bowel movements the day prior that she says were still diarrhea, she says this is out of the ordinary for her as she is usually constipated. Her blood pressure this morning was 180/99, she says at home she is usually around 110 to 120 systolic, so this is out of the ordinary. She says that she believes it is high because she is anxious about the hospital kicking her back home before her son gets back from his vacation and there is nobody there to help her. Her potassium came back down to 3.3 this morning on labs. Review of Systems General: No Chills, No Night Sweats, No Fatigue HEENT: No Head Aches, No Visual Changes Pulmonary: Dyspnea (she says she struggles with asthma. ), Cough (still has a wet cough from yesterday. ) Cardiovascular: No: Chest Pain, Palpitations, Edema Gastrointestinal: Abdominal Pain (tenderness to incisional spots. ), Diarrhea; No: Nausea, Vomiting, Hematochezia Genitourinary: No Dysuria, No Frequency, No Incontinence Neurological: No: Weakness, Numbness Focused Exam Respiratory: Chest Non Tender, No Accessory Muscle Use, No Respiratory Distress, Decreased Breath Sounds (right base) Cardiovascular: Regular Rate, Rhythm, No Edema, No Gallop, No Murmur; No Diastolic Murmur, No Systolic Murmur Peripheral Pulses: 3+ Carotid (R), 3+ Carotid (L), 3+ Radial Pulses (R), 3+ Radial Pulses (L) Skin: No rash, No ulcerations Objective Exam Vital Signs Date Time Temp Pulse Resp B/P (MAP) Pulse Ox O2 Delivery O2 Flow Rate FiO2 05/02/23 07:42 36.8 68 18 180/99 (126) Room Air 05/02/23 07:38 95 Nasal Cannula 2.00 05/02/23 03:35 36.6 71 18 164/83 (110) 97 Room Air 05/01/23 23:21 36.4 77 18 154/95 (114) 96 Room Air 05/01/23 21:38 Room Air 05/01/23 20:00 Room Air 05/01/23 19:54 37.2 83 19 170/92 (118) 94 Room Air 0.00 0.00 05/01/23 15:42 37.2 83 19 160/93 (115) 94 Room Air 05/01/23 11:10 36.5 75 20 135/98 (110) 93 Room Air I & O 05/02/23 07:00 Intake Total 1270 ml Output Total 1020 ml Balance 250 ml Capillary Refill : Less Than 3 Seconds General Appearance: No Apparent Distress HEENT: PERRL/EOMI Respiratory: Lungs Clear, No Accessory Muscle Use, No Respiratory Distress, Decreased Breath Sounds (right base) Cardiovascular: Regular Rate, Rhythm, No Murmur Peripheral Pulses: 3+ Carotid (R), 3+ Carotid (L), 3+ Radial Pulses (R), 3+ Radial Pulses (L) Gastrointestinal: soft, tenderness (mostly at mildine inicisioin, small amount to RUQ), hernia (Ventral/incisional - incarcerated), other (incision c/d/i, CLARITA with serosanguinous fluid) Neurologic/Psychiatric: Alert, Oriented x3 Lymphatic: No Adenopathy Results Lab Laboratory Tests 05/02/23 05:23: White Blood Count 8.2, Red Blood Count 3.64L, Hemoglobin 11.0L, Hematocrit 34L, Mean Corpuscular Volume 93, Mean Corpuscular Hemoglobin 30, Mean Corpuscular Hemoglobin Concent 32, Red Cell Distribution Width 12.3, Platelet Count 311, Mean Platelet Volume 10.7, Immature Granulocyte % (Auto) 2, Neutrophils (%) (Auto) 62, Lymphocytes (%) (Auto) 19, Monocytes (%) (Auto) 8, Eosinophils (%) (Auto) 8, Basophils (%) (Auto) 1, Neutrophils # (Auto) 5.1, Lymphocytes # (Auto) 1.6, Monocytes # (Auto) 0.7, Eosinophils # (Auto) 0.7H, Basophils # (Auto) 0.1, Immature Granulocyte # (Auto) 0.1, Sodium Level 140, Potassium Level 3.3L, Chloride Level 108H, Carbon Dioxide Level 23, Anion Gap 9, Blood Urea Nitrogen 6L, Creatinine 0.84, Estimat Glomerular Filtration Rate 72, BUN/Creatinine Ratio 7, Glucose Level 94, Calcium Level 8.4L, Corrected Calcium 9.3, Phosphorus Level 3.3, Magnesium Level 2.0, Total Bilirubin 0.3, Aspartate Amino Transf (AST/SGOT) 19, Alanine Aminotransferase (ALT/SGPT) 19, Alkaline Phosphatase 58, Total Protein 5.7L, Albumin 2.9L Microbiology 04/26/23 MRSA Screen - Final, Complete MRSA not isolated 04/26/23 Blood Culture - Final, Complete No growth 04/25/23 Urine Culture - Final, Complete Escherichia coli Assessment/Plan Assessment/Plan Assessment/Plan S/P [place] of Duodenal perforation with Modified Pato patch Hypokalemia - improved somewhat CAD HTN Asthma Pt's insurance denied her inpt rehab, she is insisting she is not steady enough or strong enough to go home on her own. Will try to get her to SNF. LEONEL JOSEPH DO 05/02/23 1108: Subjective Date Seen by a Provider: May 02, 2023 Time Seen by a Provider: 09:56 Subjective/Events-last exam Pt seen and examined, she was walking in the hallway with PT. Her main worry is she cannot take care of herself at home. Review of Systems Pulmonary: Dyspnea (she says she struggles with asthma. ), Cough (still has a wet cough from yesterday. ) Cardiovascular: No: Chest Pain, Palpitations Gastrointestinal: Abdominal Pain (tenderness to incisional spots. ), Diarrhea; No: Nausea, Vomiting Objective Exam General Appearance: No Apparent Distress Respiratory: Lungs Clear, No Accessory Muscle Use, No Respiratory Distress, Decreased Breath Sounds (right base) Cardiovascular: Regular Rate, Rhythm, No Murmur Gastrointestinal: soft, tenderness (mostly at mildine inicisioin, small amount to RUQ), hernia (Ventral/incisional - incarcerated), other (incision c/d/i, [place] with serosanguinous fluid) Neurologic/Psychiatric: Alert, Oriented x3 Assessment/Plan Assessment/Plan Assessment/Plan S/P [place] of Duodenal perforation with Modified Pato patch Hypokalemia - improved somewhat CAD HTN Asthma Will have nurse D/C drain. Continue to encourage IS, ambulation and PO intake. Still trying to get her to SNF. Supervisory-Addendum Brief Verification & Attestation Participated in pt care: history, MDM, physical Personally performed: exam, history, MDM, supervision of care Care discussed with: Medical Student Procedures: n/a Verification and Attestation of Medical Student E/M Service A PA student performed and documented this service. I then reviewed and verified all information documented by the medical student and made modifications to such information, when appropriate. I personally performed a physical exam, medical decision making and then discussed any differences between the notes and made revisions as necessary to create one note. Leonel Joseph , 05/02/23 , 11:07 AMRITA CRAWFORD May 02, 2023 08:49 LEONEL JOSEPH DO May 02, 2023 11:08
[2023-05-02] MEDS: MYRBETRIQ 50 MG TAB PO SCH (09:23)
[2023-05-02] MEDS: PANTOPRAZOLE 40 MG (PROTONIX) TAB PO SCH (09:24)
[2023-05-02] MEDS: FLUCONAZOLE 200 MG/100 ML 100 ML IV SCH (09:24)
[2023-05-02] MEDS: LOSARTAN 100 MG (COZAAR) TABLET PO SCH (09:24)
--- NOTE | 2023-05-02 10:51 | Physical Therapy Daily Note ---
PT Daily Note-Current Subjective Patient agrees to PT. Pain Section J - Health Conditions 1. Rarely or not at all 2. Occasionally 3. Frequently 4. Almost constantly 8. Unable to answer Pain Effect on Sleep: 1 Pain Interference with Therapy: 1 Pain Interference w/Day-to-Day: 1 Transfers SCALE: Activities may be completed with or without assistive devices. 7-Vjvohjbnzy-okgikbc completes the activity by him/herself with no assistance from a helper. 5-Set-up or Clean-up Assistance-helper sets up or cleans up; patient completes activity. [place] assists only prior to or following the activity. 4-Supervision or Touching Assistance-helper provides verbal cues and/or touching/steadying and/or contact guard assistance as patient completes activity. Assistance may be provided throughout the activity or intermittently. 3-Partial/Moderate Assistance-helper does LESS THAN HALF the effort. [place] lifts, holds or supports trunk or limbs, but provides less than half the effort. 2-Substantial/Maximal Assistance-helper does MORE THAN HALF the effort. [place] lifts or holds trunk or limbs and provides more than half the effort. 7-Dlnfatymr-wxbeym does ALL the effort. Patient does none of the effort to complete the activity. Or, the assistance of 2 or more helpers is required for the patient to complete the activity. If activity was not attempted, code reason: 7-Patient Refused. 9-Not Applicable-not attempted and the patient did not perform the activity before the current illness, exacerbation or injury. 10-Not Attempted due to Environmental Limitations-(lack of equipment, weather restraints, etc.). 88-Not Attempted due to Medical Conditions or Safety Concerns. Lying to Sitting/Side of Bed(Q: 6 Sit to Stand (QC): 6 Chair/Dzg-lj-Bsvjr Xfer(QC): 6 Toilet Transfer (QC): 6 Weight Bearing Right Lower Extremity: Right Weight Bearing/Tolerated Left Lower Extremity: Left Weight Bearing/Tolerated Gait Training Distance: >500' Walk 10 feet (QC): 6 Walk 50 ft with 2 Turns(QC): 6 Walk 150 ft (QC): 6 Gait Assistive Device: FWW steady, functional gait sequence Assessment Patient toilets independently and is currently independent with all gross motor skills safely. Patient encouraged to be up ad camryn in room and hallway. Patient voices understanding. PT to dismiss patient from services at this time. PT Fdc Goals Croze Cutter Goals PT Fdc Goals Time Frame: May 17, 2023 Roll Left & Right (QC): 6 Sit to Lying (QC): 6 Lying-Sitting on Side/Bed(QC): 6 Sit to Stand (QC): 6 Chair/Cxu-zq-Ohidp Xfer(QC): 6 Toilet Transfer (QC): 6 Walk 10 feet (QC): 5 Walk 50ft with 2 Turns (QC): 5 Walk 150 ft (QC): 5 Walking 10ft on Uneven Surface: 5 1 Step (curb) (QC): 4 4 Steps (QC): 4 PT Plan Treatment/Plan Treatment Plan: Discontinue PT Treatment Plan: Bed Mobility, Education, Functional Activity Melinda, Functional Strength, Gait, Safety, Therapeutic Exercise, Transfers Treatment Duration: May 17, 2023 Frequency: 6 times per week Estimated Hrs Per Day: .25 hour per day Patient and/or Family Agrees t: Yes Time Time In: 950 Time Out: 1008 DATE: May 02, 2023 Total Billed Treatment Time: 18 Total Billed Treatment 1 visit FA 18 min CANDY ORO PT May 02, 2023 10:51
--- NOTE | 2023-05-02 11:27 | Occupational Ther Daily Note ---
OT Current Status-Daily Note Subjective Patient and Dr report drain will be discharged today. Patient laid in bed urine incont and use of PUR WIK. Patient request assistance to toilet, OT informed patient to call staff for toileting to reduce urine incontinence episodes Mental Status/Objective Patient Orientation: Person, Place, Time, Situation ADL-Treatment toileting for B/B. Patient [id number] mild safety impairment with standing to mange stepping over saturated brief and not sitting on toilet to remove. Therapy Code Descriptions/Definitions Functional [place] Measure: 0=Not Assessed/NA 4=Minimal Assistance 1=Total Assistance 5=Supervision or Setup 2=Maximal Assistance 6=Modified [place] 3=Moderate Assistance 7=Complete IndependenceSCALE: Activities may be completed with or without assistive devices. 6-Kkiujqusoq-bhuloqv completes the activity by him/herself with no assistance from a helper. 5-Set-up or Clean-up Assistance-helper sets up or cleans up; patient completes activity. [place] assists only prior to or following the activity. 4-Supervision or Touching Assistance-helper provides verbal cues and/or touching/steadying and/or contact guard assistance as patient completes acti vity. Assistance may be provided throughout the activity or intermittently. 3-Partial/Moderate Assistance-helper does LESS THAN HALF the effort. [place] lifts, holds or supports trunk or limbs, but provides less than half the effort. 2-Substantial/Maximal Assistance-helper does MORE THAN HALF the effort. [place] lifts or holds trunk or limbs and provides more than half the effort. 1-Lywjqkaut-qellwe does ALL the effort. Patient does none of the effort to complete the activity. Or, the assistance of 2 or more helpers is required for the patient to complete the activity. If activity was not attempted, code reason: 7-Patient Refused. 9-Not Applicable-not attempted and the patient did not perform the activity before the current illness, exacerbation or injury. 10-Not Attempted due to Environmental Limitations-(lack of equipment, weather restraints, etc.). 88-Not Attempted due to Medical Conditions or Safety Concerns. Eating (QC): 6 Oral Hygiene (QC): 6 Shower/Bathe Self (QC): 7 (shampoo cap provided and applied, patient completed hair grooming) Upper Body Dressing (QC): 5 Lower Body Dressing (QC): 5 On/Off Footwear: 7 (declined to change damp socks) Toileting Hygiene (QC): 5 Toilet Transfer (QC): 5 Education OT Patient Education: Disease process, Modified ADL techniques, Progress toward Goal/Update tx plan, Purpose of tx/functional activities, Reviewed precautions, Rehab process, Safety issues, Transfer techniques, Use of adapted equipment Teaching Recipient: Patient Response to Teaching: Return Demonstration OT Snf Goals Snf Goals Eating (QC): 6 Oral Hygiene (QC): 6 Toileting Hygiene (QC): 6 Shower/Bathe Self (QC): 6 Upper Body Dressing (QC): 6 Lower Body Dressing (QC): 6 On/Off Footwear (QC): 6 1=Demonstrate adherence to instructed precautions during ADL tasks. 2=Patient will verbalize/demonstrate understanding of assistive devices/modifications for ADL. 3=Patient will improve strength/tolerance for activity to enable patient to perform ADL's. OT Education/Plan Discharge Recommendations Plan/Recommendations: Discontinue OT Treatment Plan/Plan of Care Patient would benefit from OT for education, treatment and training to promote i ndependence in ADL's, mobility, safety and/or upper extremity function for ADL's. Plan of Care: ADL Retraining, Functional Mobility, Group Exercise/Act as Ind, UE Funct Exercise/Act Treatment Duration: May 03, 2023 Frequency: 3 times per week (3-5 times per week) Estimated Hrs Per Day: .25 hour per day Rehab Potential: Good Time Start Time: 09:50 Stop Time: 10:08 DATE: May 02, 2023 Total Time Billed (hr/min): 18 Billed Treatment Time ADL 18 JAKY SKINNER OT May 02, 2023 11:27
[2023-05-02 12:12] VITALS: BP 173/97
--- NOTE | 2023-05-02 13:00 | Discharge Inst-Skilled Nursing ---
Discharge Inst-Skilled NF Reconcile Patient Problems Problems Reviewed?: Yes Consult/Follow Up/Orders Skilled NF Admit to: [facility] Certification (SNF) I certify that SNF services are required to be given on an inpatient basis because of the above named patient's need for [facility] care on a continuing basis for the conditions(s) for which he/she was receiving inpatient hospital services prior to his/her transfer to the SNF. Half-Way Facility Order: Nursing Services, Agronomy Supervisor-Evaluate & Treat, Physical Therapy-Evaluate & Treat Oxygen Delivery Method: Room Air Discharge Diet: No Restrictions Daily Activity as Tolerated: Yes Resuscitation Status: Full Code New & Resume Previous Orders Duc Joseph May 02, 2023 12:58 DUC JOSEPH DO May 02, 2023 12:59
[2023-05-02] MEDS ORDERED: PANTOPRAZOLE 40 MG (PROTONIX) TAB PO SCH (21:00)
== END 2023-05-02 14:27 | DRG 329 ==
LOC: EDUNIT# 19:20 → ER 19:22 → SDC 22:05 → ICU 04-26 00:40 → 4TH 04-27 12:41
PROVIDERS: ADMIT Surgery; ATTEND Surgery
PROC: 0DU907Z Supplement Duodenum with Autologous Tissue Substitute, Open Approach (ICD-10-PCS; principal; 2023-04-25 22:08)
DX: K26.5 Chronic or unspecified duodenal ulcer with perforation (principal); K65.1 Peritoneal abscess; N17.9 Acute kidney failure, unspecified; N39.0 Urinary tract infection, site not specified; E87.6 Hypokalemia; R32 Unspecified urinary incontinence; I25.10 Atherosclerotic heart disease of native coronary artery without angina pectoris; J45.909 Unspecified asthma, uncomplicated; E78.00 Pure hypercholesterolemia, unspecified; I10 Essential (primary) hypertension; G35 Multiple sclerosis; K90.0 Celiac disease; M19.90 Unspecified osteoarthritis, unspecified site; E03.9 Hypothyroidism, unspecified; H54.3 Unqualified visual loss, both eyes; F41.9 Anxiety disorder, unspecified; F32.A Depression, unspecified; Z20.822 Contact with and (suspected) exposure to COVID-19; Z95.5 Presence of coronary angioplasty implant and graft; Z95.1 Presence of aortocoronary bypass graft; Z86.718 Personal history of other venous thrombosis and embolism; Z79.82 Long term (current) use of aspirin; Z79.899 Other long term (current) drug therapy; Z88.1 Allergy status to other antibiotic agents
CPT/HCPCS: 36415; 71045; 71250; 74150; 74176; 80053; 81000; 82150; 82550; 82553; 82947; 83605; 83690; 83735; 83874; 83880; 84100; 84439; 84443; 84484; 85007; 85025; 85027; 85610; 85652; 85730; 86141; 87040; 87077; 87081; 87088; 87186; 87636; 93005; 93041; 94640; 94664; 94760; 96365; 96366; 96375

== ENCOUNTER → 2023-09-12 | Outpatient (CLI) | payer MEDICARE ==
[~2023-09-12] MED LIST changes: +ACET-3075 PO; +CALC-1049 PO; +CALC-1102 PO; +MTP25TSR PO; +NAPR220T66 PO; +PANT40TA52 PO
--- NOTE | 2023-09-12 12:21 | Diagnostic Imaging Report ---
Indication: Routine screening. Comparison is made with prior mammograms 09/11/2022 and 09/10/2021. 2-D and 3-D bilateral screening mammography was performed with CAD. Scattered fibroglandular densities are identified bilaterally. The parenchymal pattern is stable. No mass or malignant-appearing microcalcifications are seen. There are benign calcifications bilaterally. Axillae are unremarkable. IMPRESSION: BI-RADS Category 2 No mammographic features suspicious for malignancy are identified. ACR BI-RADS Category 2: Benign findings. Result letter will be mailed to the patient. Note: At least 10% of breast cancer is not imaged by mammography. Dictated by: Dictated on workstation # [id number]
== END ==
LOC: RAD 07:45
PROVIDERS: ATTEND Family Medicine
DX: Z12.31 Encounter for screening mammogram for malignant neoplasm of breast (principal)
CPT/HCPCS: 77063; 77067

== ENCOUNTER 2023-10-15 07:06 | Outpatient (RCR) | payer MEDICARE | END 2023-10-16 | disposition home or self-care (01) | LOC: CR3 07:06 | PROVIDERS: ATTEND Internal Medicine Cardiovascular Disease | DX: Z29.89 Encounter for other specified prophylactic measures (principal) ==